=== PATIENT | female | born 1955 | race Caucasian/White ===

== ENCOUNTER 2019-10-06 08:57 | Outpatient (CLI) | payer OTHER, MEDICARE, SELFPAY ==
--- NOTE | 2019-10-06 09:04 | USCV_ITS ---
Alyssa Torre Age: 64 Gender: F : 1955 Exam Date: 10/06/2019 09:17 Ordering Phys: Mark Munoz MD ([email or web address]) Technologist: Tania Houston Exam Location: [facility] Indication: BILATERAL CAROTID ARTERY STENOSIS Risk Factors: Previous Vascular Surgery: L CEA Right Brachial BP: / Left Brachial BP: / Right Left Velocity (cm/s) Spectral Plaque Velocity (cm/s) Spectral Plaque Syst/Diast Broadening Syst/Diast Broadening 122.60/12.90 Prox CCA 111.90/ 17.10 49.70/ 17.10 Mid CCA 70.90 / 19.70 37.30/ 14.80 Distal CCA 62.40 / 23.90 97.55/ 32.85 Prox ICA 80.20 / 25.00 92.90/ 31.90 Mid ICA 98.60 / 30.20 60.10/ 20.50 Distal ICA 77.60 / 34.20 54.80 ECA 131.50 2.02 ICA/CCA 1.39 Antegrade Vertebral Antegrade 40.10/ 17.70 cm/s 94.70/ 26.30 cm/s Tri Subclavian Tri 83.90 106.5 0 FINDINGS Comparison:. 09/02/18. Prior left CEA. Moderate plaque near the right bifurcation. Mild elevation of velocity and turbulence. No significant stenosis. Minimal atherosclerosis on the left. Bilateral antegrade vertebral arteries. CONCLUSIONS Bilateral ICA stenosis less than 50%. Moderate plaque at right bifurcation with only mild elevation of velocity. Dr. Randi Cooper DO (Electronically Signed) Final Date: 06 October 2019 09:44 S
== END 2019-10-06 08:58 | disposition home or self-care (01) ==
LOC: RAD 08:58
PROVIDERS: Family Provider Nurse Practitioner; PCP Nurse Practitioner; Visit Provider Internal Medicine Cardiovascular Disease
DX: I65.23 Occlusion and stenosis of bilateral carotid arteries (principal)
CPT/HCPCS: 93880

== ENCOUNTER → 2019-10-12 09:41 | Outpatient (BNVA) | payer OTHER, MEDICARE, SELFPAY | PROVIDERS: Family Provider Nurse Practitioner; PCP Nurse Practitioner; Referring Provider Nurse Practitioner; Visit Provider Internal Medicine Rheumatology | DX: M06.00 Rheumatoid arthritis without rheumatoid factor, unspecified site (principal); Z79.899 Other long term (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 therapy; M15.0 Primary generalized (osteo)arthritis; Z79.52 Long term (current) use of systemic steroids | CPT/HCPCS: 36415; 80076; 82565; 85651; 86140; 99214 ==

== ENCOUNTER → 2019-10-12 11:27 | Outpatient (BNVA) | payer OTHER, MEDICARE, SELFPAY | PROVIDERS: Family Provider Nurse Practitioner; PCP Nurse Practitioner; Referring Provider Nurse Practitioner; Visit Provider Internal Medicine Rheumatology | DX: M06.00 Rheumatoid arthritis without rheumatoid factor, unspecified site (principal); Z79.899 Other long term (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 therapy; M15.0 Primary generalized (osteo)arthritis | CPT/HCPCS: 85025 ==

== ENCOUNTER → 2019-11-03 11:18 | Outpatient (BNVA) | payer OTHER, MEDICARE, SELFPAY | PROVIDERS: Family Provider Nurse Practitioner; PCP Nurse Practitioner; Visit Provider Nurse Practitioner | DX: E13.9 Other specified diabetes mellitus without complications (principal); I10 Essential (primary) hypertension; G62.9 Polyneuropathy, unspecified; J30.2 Other seasonal allergic rhinitis; J44.9 Chronic obstructive pulmonary disease, unspecified; E78.1 Pure hyperglyceridemia; Z79.899 Other long term (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 therapy | CPT/HCPCS: 81003 ==

== ENCOUNTER → 2019-11-04 08:09 | Outpatient (BNVA) | payer OTHER, MEDICARE, SELFPAY | PROVIDERS: Family Provider Nurse Practitioner; PCP Nurse Practitioner; Visit Provider Nurse Practitioner | DX: E78.1 Pure hyperglyceridemia (principal); E13.9 Other specified diabetes mellitus without complications; I10 Essential (primary) hypertension; J44.9 Chronic obstructive pulmonary disease, unspecified; Z79.899 Other long term (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 therapy | CPT/HCPCS: 80053; 80061; 83036; 84443 ==

== ENCOUNTER → 2020-01-19 10:02 | Outpatient (BNVA) | payer OTHER, MEDICARE, SELFPAY | PROVIDERS: Family Provider Nurse Practitioner; PCP Nurse Practitioner; Referring Provider Anesthesiology Pain Medicine; Visit Provider Orthopaedic Surgery | DX: M25.552 Pain in left hip (principal); M12.551 Traumatic arthropathy, right hip; M48.00 Spinal stenosis, site unspecified; M70.61 Trochanteric bursitis, right hip; M70.62 Trochanteric bursitis, left hip; M16.0 Bilateral primary osteoarthritis of hip | CPT/HCPCS: 73522; 73523 ==

== ENCOUNTER → 2020-02-02 10:10 | Outpatient (BNVA) | payer OTHER, MEDICARE, SELFPAY | PROVIDERS: Family Provider Nurse Practitioner; PCP Nurse Practitioner; Referring Provider Orthopaedic Surgery; Visit Provider Anesthesiology Pain Medicine | DX: M48.061 Spinal stenosis, lumbar region without neurogenic claudication (principal); M54.9 Dorsalgia, unspecified; R10.9 Unspecified abdominal pain; Z79.891 Long term (current) use of opiate analgesic | CPT/HCPCS: 99203; 99204 ==

== ENCOUNTER 2020-02-07 07:53 | Outpatient (CLI) | payer OTHER, MEDICARE, SELFPAY ==
--- NOTE | 2020-02-07 08:00 | CT_ITS ---
WS: [id number] CT LUMBAR SPINE TECHNIQUE: Noncontrast CT of the lumbar spine with coronal and sagittal reformatted images. CLINICAL INFORMATION: pain COMPARISON: MRI January 05, 2018 DLP: 1063.[address] scans at [facility] use at least one of these dose optimization techniques: automat ed exposure control; mA and/or kV adjustment per patient size (includes targeted exams where dose is matched to clinical indication); or iterative reconstruction. FINDINGS: Mild lumbar curve convex left. Vacuum disc phenomenon L3-4. No acute compression fractures. No high-g rade central canal stenosis. L1-L2: Normal. L2-L3: Mild annular bulging with slight effacement of ventral thecal sac. Moderate facet arthropathy. Spinal canal is patent. L3-L4: Mild disc bulging with vacuum disc phenomenon. Mild central canal stenosis. Moderate facet art hropathy ligament flavum hypertrophy. Mild to moderate right and no significant left foraminal narrow ing. L4-L5: Central disc protrusion in combination with facet arthropathy ligament flavum hypertrophy resu lts in moderate to severe central canal stenosis. Impingement on the subarticular recess bilaterally. Mild to moderate right greater than left foraminal narrowing. L5-S1: Mild disc bulging with osteophytic ridging. Mild right and no significant left foraminal narro wing. Spinal canal is patent. Advanced facet arthropathy. Visualized pelvic bony structures: Normal. Paravertebral soft tissues: Normal. Partially visualized left adrenal adenoma measuring 3.[address]/CT lumbar spine wo con* [id number] IMPRESSION: 1. Mild lumbar curve. No acute compression. 2. Moderate to severe central canal stenosis L4-5 with a small central protrus ion in combination with facet arthropathy and Ligamentum flavum hypertrophy. Th is appears similar to the MRI in 2018. 3. Mild central canal stenosis L3-4 due to disc bulging with facet arthropathy and ligamentum flavum hypertrophy. 4. Moderate to advanced facet arthropathy L4-L5 and L5-S1. 5. Mild to moderate foraminal narrowing worse at right L3-4 and right L4-5.
== END 2020-02-07 07:54 | disposition home or self-care (01) ==
LOC: RADWPI 07:57
PROVIDERS: Family Provider Nurse Practitioner; PCP Nurse Practitioner; Visit Provider Orthopaedic Surgery
DX: M54.5 Low back pain (principal); M48.061 Spinal stenosis, lumbar region without neurogenic claudication; M47.816 Spondylosis without myelopathy or radiculopathy, lumbar region
CPT/HCPCS: 72131

== ENCOUNTER → 2020-02-10 09:37 | Outpatient (BNVA) | payer OTHER, MEDICARE, SELFPAY | PROVIDERS: Family Provider Nurse Practitioner; PCP Nurse Practitioner; Visit Provider Nurse Practitioner | DX: E11.65 Type 2 diabetes mellitus with hyperglycemia (principal); I10 Essential (primary) hypertension; E78.1 Pure hyperglyceridemia; J30.2 Other seasonal allergic rhinitis; G62.9 Polyneuropathy, unspecified | CPT/HCPCS: 80053; 80061; 81000; 82044; 83036; 83721 ==

== ENCOUNTER → 2020-02-16 14:02 | Outpatient (BNVA) | payer OTHER, MEDICARE, SELFPAY | PROVIDERS: Family Provider Nurse Practitioner; PCP Nurse Practitioner; Visit Provider Anesthesiology Pain Medicine | DX: M48.061 Spinal stenosis, lumbar region without neurogenic claudication (principal); M54.9 Dorsalgia, unspecified; Z79.891 Long term (current) use of opiate analgesic | CPT/HCPCS: 64483; 64484; J1040; J2001; J3490 ==

== ENCOUNTER → 2020-02-23 13:07 | Outpatient (BNVA) | payer OTHER, MEDICARE, SELFPAY | PROVIDERS: Family Provider Nurse Practitioner; PCP Nurse Practitioner; Visit Provider Anesthesiology Pain Medicine | DX: M48.061 Spinal stenosis, lumbar region without neurogenic claudication (principal); M54.9 Dorsalgia, unspecified; Z79.891 Long term (current) use of opiate analgesic | CPT/HCPCS: 64483; 64484; J1040; J2001; J3490 ==

== ENCOUNTER → 2020-05-26 08:39 | Outpatient (BNVA) | payer MEDICARE, SELFPAY | PROVIDERS: Family Provider Nurse Practitioner; PCP Nurse Practitioner; Visit Provider Nurse Practitioner | DX: E11.65 Type 2 diabetes mellitus with hyperglycemia (principal); I10 Essential (primary) hypertension; M15.9 Polyosteoarthritis, unspecified | CPT/HCPCS: 80053; 80061; 81000; 83036; 84443 ==

== ENCOUNTER → 2020-08-15 11:38 | Outpatient (BNVA) | payer MEDICARE, SELFPAY | PROVIDERS: Family Provider Nurse Practitioner; PCP Nurse Practitioner; Visit Provider Nurse Practitioner | DX: Z12.72 Encounter for screening for malignant neoplasm of vagina (principal); Z00.00 Encounter for general adult medical examination without abnormal findings; Z12.39 Encounter for other screening for malignant neoplasm of breast | CPT/HCPCS: 88175 ==

== ENCOUNTER → 2020-08-23 09:09 | Outpatient (BNVA) | payer MEDICARE, SELFPAY | PROVIDERS: Family Provider Nurse Practitioner; PCP Nurse Practitioner; Visit Provider Nurse Practitioner | DX: M16.0 Bilateral primary osteoarthritis of hip (principal); E11.65 Type 2 diabetes mellitus with hyperglycemia; E55.9 Vitamin D deficiency, unspecified; I10 Essential (primary) hypertension; M25.551 Pain in right hip; Z79.899 Other long term (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 therapy; M25.552 Pain in left hip | CPT/HCPCS: 73522; 80053; 80061; 82043; 82306; 83036; 84443; 85025 ==

== ENCOUNTER → 2020-11-24 08:22 | Outpatient (BNVA) | payer MEDICARE, SELFPAY | PROVIDERS: PCP Nurse Practitioner; Visit Provider Nurse Practitioner | DX: E55.9 Vitamin D deficiency, unspecified (principal); E11.65 Type 2 diabetes mellitus with hyperglycemia; I10 Essential (primary) hypertension; J43.8 Other emphysema | CPT/HCPCS: 80053; 80061; 82306; 83036; 84443 ==

== ENCOUNTER 2021-01-12 09:14 | Emergency (ER) | payer MEDICARE, SELFPAY ==
[2021-01-12 09:20] VITALS: BP 165/88; PULSE 92; RESP 18; TEMP 36.3; O2SAT 97; BMI 43.9
--- NOTE | 2021-01-12 09:34 | USR_ITS ---
PROCEDURE INFORMATION: Exam: US Duplex Right Lower Extremity Arteries Or Arterial Bypass Grafts Exam date and time: 01/12/2021 9:43 AM Age: 65 years old Clinical indication: Pain; Leg, lower; Right; Additional info: Discoloration RT 1st and 5th toe, h/o pad TECHNIQUE: Imaging protocol: Right Real-time duplex scan of the arteries or arterial bypass grafts of the right lower extremity with 2-D camacho scale, color Doppler flow and spectral waveform analysis. Images documented and saved. COMPARISON: No relevant prior studies available. FINDINGS: Right common femoral artery: There is monophasic waveform in the right common femoral artery. Velocities are within normal limits and do not suggest significant inflow disease. Right superficial femoral artery: There is monophasic waveform throughout the right superficial femoral artery. Velocities are normal. No significant stenosis is seen. A stent in the superficial femoral artery appears patent. Right popliteal artery: Monophasic waveform. Velocities are normal. No evidence of significant stenosis. Right calf/foot arteries: There is monophasic waveform in the posterior tibial artery and dorsalis pedis artery. Velocities are normal. Soft tissues: No hematoma or collection. Other findings: The ankle brachial index equals 0.54 which is in claudication zone.. US/[place] [address] IMPRESSION: 1. There is monophasic waveform throughout the right lower extremity but velocities are within normal limits and no significant stenosis is identified on real-time images. 2. The ankle brachial index is 0.54 which is in the claudication zone.
--- NOTE | 2021-01-12 09:34 | XR_ITS ---
WS: [id number] Right great toe, 3 views, 01/12/2021 Clinical Data: discoloration rt great toe Comparison: Right foot, 07/07/2019. Findings: There are no fractures or dislocations. The joint spaces are unremarkable. The soft tissues are waldo l. XR/XR toe RT min 2V 21340 Impression: Negative right great toe.
--- NOTE | 2021-01-12 09:47 | W.ED.EXTPRO ---
HPI - Extremity Problem General: Chief complaint: Extremity Problem,Nontraumatic Stated complaint: RIGHT BIG TOE BLACK Time Seen by Provider: 01/12/21 09:27 Source: patient Mode of arrival: ambulatory Limitations: no limitations History of Present Illness: HPI Narrative: 65-year-old female patient presents to the emergency department with several week/month history of right great toe and right little toe discoloration. She reports history of peripheral arterial disease, femoral blockage with stents placed by Dr. Meredith. She states has followed up with her primary care provider for discoloration, no new prescriptions or further evaluation as toe would wax and wane with improvement. She reports pain to the toe that has worsened this morning. Her states she may have an ingrown toenail. She has clipped her own nails and states there is a small sore at the tip of the toe. She reports that occurred several weeks ago. She denies right leg swelling pain or discoloration. Pain is localized to the toes only. She denies injury or trauma. MD Complaint: extremity pain Pain Consistency: constant Location: right, lower extremity and toe Quality: aching Relieving factors: immobilization and rest Exacerbating factors: range of motion, weight bearing, walking and other (Touching) Associated symptoms: Reports no associated symptoms; Deny chest pain, fever(s) or rash Review of Systems General: Reports: 10 or more systems reviewed and unremarkable except in HPI and below Const: Denies: fever(s), chills or diaphoresis Eyes: Denies: blurry vision or eye redness ENMT: Denies: throat pain, dental pain or disequilibrium Card: Denies: chest pain, palpitations or irregular heart rhythm Resp: Denies: dyspnea, productive cough, non-productive cough or wheezing GI: Denies: abdominal pain, nausea or vomiting : Denies: difficulty voiding or dysuria Musc: Reports: joint pain; Denies: neck pain or back pain Skin/Breast: Reports: skin tenderness and changes in skin color; Denies: rash or pruritus Neuro: Denies: headache(s), weakness in extremities or behavioral changes Psych: Denies: anxiety, depression, sleeping more or change in appetite Oleg/Lymph: Denies: easy bruising PFS ED PFSH: Medical History Allergic rhinoconjunctivitis, seasonal and perennial ASHD (arteriosclerotic heart disease) Chronic pain Chronic polyneuropathy Controlled diabetes mellitus with hyperglycemia, without long-term current use of insulin COPD (chronic obstructive pulmonary disease) Essential hypertension Generalized osteoarthritis GERD (gastroesophageal reflux disease) High risk medication use History of carotid artery stenosis HNP (herniated nucleus pulposus), lumbar Hypertriglyceridemia Lumbar spinal stenosis Osteoarthritis PAD (peripheral artery disease) Polyneuropathy Primary generalized (osteo)arthritis Rheumatoid arthritis with negative rheumatoid factor Vitamin D deficiency Surgical History S/P angioplasty with stent 2019 right leg 2018 heart S/P carotid endarterectomy Left 2019 S/P cervical spinal fusion 2005 S/P hysterectomy S/P knee replacement Bilateral 2006 Family History Other CAD (coronary artery disease) Diabetes Social History Smoking and tobacco status: former smoker Second hand smoke exposure: No Smoking risk assessment/counseling performed?: No Alcohol intake: never Desire information about alcohol rehabilitation?: No Counseling given: No Desire information about substance/drug rehabilitation?: No Counseling given: No Caregiver/support person: No Lives independently: Yes Household members: spouse Marital status: Number of children: 3 Highest education level completed: 10th Grade service: No Current occupational status: disabled Pets and animals: Yes History of recent travel: No Current gender identity: Female Physical Exam Const: COMMON NORMALS: no acute distress, patient oriented x3, healthy appearing and alert GENERAL APPEARANCE: cooperative, comfortable and well hydrated HENMT: COMMON NORMALS: normocephalic, Normal external nose present and moist oral mucous membranes HEAD & SCALP: normocephalic NOSE: Normal external nose present Eye: COMMON NORMALS: Equal, round and reactive pupils present and EOMs intact bilaterally GENERAL EYE: appearance normal, both eyes and all related structures PUPIL: Yes Equal, round and reactive pupils present Neck/C-Spine: COMMON NORMALS: full ROM and no lymphadenopathy GENERAL: Yes normal visual inspection and Yes trachea midline CERVICAL SPINE: Yes cervical ROM normal Lymph: LYMPHATIC: no lymphadenopathy noted Chest: COMMONS NORMALS: normal inspection of the chest Resp: COMMON NORMALS: normal respiratory effort, No retractions, No use of accessory muscles and clear to auscultation bilaterally EFFORT & INSPECTION: Yes able to speak in complete sentences AUSCULTATION: clear to auscultation bilaterally Cardio: COMMON NORMALS: regular rhythm, S1 normal heart sound present and S2 normal heart sound present RHYTHM: regular rhythm HEART SOUNDS: S1 normal heart sound present and S2 normal heart sound present PERIPHERAL PULSES: dorsalis pedis present positive right 1+ and diminished and positive left 1+ and diminished GI: COMMON NORMALS: Soft to palpation and non-tender INSPECTION: Yes normal to inspection PALPATION: Yes Soft to palpation : COMMON NORMALS: Yes no CVA tenderness BLADDER/KIDNEY EXAM: Yes no CVA tenderness Back/Pelvis: COMMON NORMALS: no CVA tenderness and thoracic and lumbar spine normal to inspection Extremity: COMMON NORMALS: normal to inspection, full ROM, capillary refill normal, no calf tenderness and no pedal edema GENERAL: Yes normal exam except as noted Neuro: COMMON NORMALS: patient oriented x3 and no focal motor deficits SENSORIUM/ORIENTATION: Yes alert Psych: COMMON NORMALS: mental status grossly normal, Normal thought process present and cooperative ACTIVITY/MOTOR BEHAVIOR: Yes appropriate eye contact THOUGHT PROCESS: Normal thought process present Skin: COMMON NORMALS: no rashes or lesions noted, turgor normal, no petechiae and no mottling GENERAL SKIN EXAM: no rashes or lesions noted, elasticity normal and turgor normal OTHER: Purple discoloration to the right great toe and fifth toe, full dorsi flexion extension noted, capillary refill at 3 seconds, small 5 mm wound with scabbing to the distal tip, nail to the great toe with ingrown appearance, tender to the touch no drainage. Course ED course: 65-year-old female patient presents to the emergency department with discoloration of the right great toe and right fifth toe, discoloration has been present for months, discoloration has waxed and waned. She has experienced increased pain today. Arterial ultrasound completed secondary to concern of thrombus, no acute thrombus visualized, she remains on aspirin therapy. X-ray revealed negative right great toe. She was referred to podiatry for ingrown toenail, she was also referred to cardiovascular services it has been sometime since she has had a checkup. She will need reevaluation by cardiology to ensure no further need for intervention/medication addition due to findings of arterial ultrasound. She has hydrocodone at home, placed on Keflex due to diabetic status and ingrown nail. Vital Signs: Vital signs: Vital Signs Temperature 97.3 F L 01/12/21 09:20 Pulse Rate 71 01/12/21 14:14 Respiratory Rate 18 01/12/21 14:14 Blood Pressure 115/73 01/12/21 14:14 Pulse Oximetry 98 01/12/21 14:14 MDM - Extremity (Nontraumatic) Imaging Data^: Xray Ortho: Radiologist's impression: [employer] [address] [place] [address]. [place] [address] XRay Report Signed Patient: Alyssa Torre #: [id number] : 1955cct#:[id number] Age/Sex: 65 / FADM Date: 01/12/21 Loc: ERRoom/Bed: Attending Dr: Ordering Provider/Ordering MD: Nessa Mott Date of Service: 01/12/21 Procedure(s): XR toe RT min 2V 33709 Accession Number(s): [id number] Report Number: [id number] WS: [id number] Right great toe, 3 views, 01/12/2021 Clinical Data: discoloration rt great toe Comparison: Right foot, 07/07/2019. Findings: There are no fractures or dislocations. The joint spaces are unremarkable. The soft tissues are normal. XR/XR toe RT min 2V 40991 Impression: Negative right great toe. Dictated By:Michelle Cardoza MD Signed By:Michelle Cardoza MDSigned Date/Time:01/12/21 1055 DD/ 1053 Other Imaging: Radiologist's impression: [employer] [address] [place] [address]. [place] [address] Ultrasound Report Signed Patient: Alyssa oTrre #: [id number] : 7Acct#:[id number] Age/Sex: 65 / FADM Date: 01/12/21 Loc: ERRoom/Bed: Attending Dr: Ordering Provider/Ordering MD: Nessa Mott Date of Service: 01/12/21 Procedure(s): [place] [address] Accession Number(s): [id number] Report Number: [id number] PROCEDURE INFORMATION: Exam: US Duplex Right Lower Extremity Arteries Or Arterial Bypass Grafts Exam date and time: 01/12/2021 9:43 AM Age: 65 years old Clinical indication: Pain; Leg, lower; Right; Additional info: Discoloration RT 1st and 5th toe, h/o pad TECHNIQUE: Imaging protocol: Right Real-time duplex scan of the arteries or arterial bypass grafts of the right lower extremity with 2-D camacho scale, color Doppler flow and spectral waveform analysis. Images documented and saved. COMPARISON: No relevant prior studies available. FINDINGS: Right common femoral artery: There is monophasic waveform in the right common femoral artery. Velocities are within normal limits and do not suggest significant inflow disease. Right superficial femoral artery: There is monophasic waveform throughout the right superficial femoral artery. Velocities are normal. No significant stenosis is seen. A stent in the superficial femoral artery appears patent. Right popliteal artery: Monophasic waveform. Velocities are normal. No evidence of significant stenosis. Right calf/foot arteries: There is monophasic waveform in the posterior tibial artery and dorsalis pedis artery. Velocities are normal. Soft tissues: No hematoma or collection. Other findings: The ankle brachial index equals 0.54 which is in claudication zone.. US/[place] [address] IMPRESSION: 1. There is monophasic waveform throughout the right lower extremity but velocities are within normal limits and no significant stenosis is identified on real-time images. 2. The ankle brachial index is 0.54 which is in the claudication zone. Dictated By:Kam Vick Signed By:Malissa Vick Date/Time:01/12/21 1401 DD/ 1400 Discharge Plan Discharge Patient Disposition: Home Clinical Impression: Ingrown nail, PAD (peripheral artery disease) Condition: Stable Prescriptions: New cephalexin 500 mg capsule 500 mg PO Q6H 7 Days Qty: 28 RF: 0 No Action mupirocin 2 % ointment 1 applic TOPICAL BID Qty: 22 RF: 0 aspirin [Adult Low Dose Aspirin] 81 mg tablet,delayed release (DR/EC) 81 mg PO DAILY RF: 0 docusate sodium [Colace] 100 mg capsule 100 mg PO BID RF: 0 omega-3 fatty acids [Fish Oil Concentrate] 1,000 mg capsule 1,000 mg PO DAILY RF: 0 hydrocodone-acetaminophen 10-325 mg tablet 1 tab PO Q6H PRNRF: 0 Complete Multivitamin Tablet 1 tab PO QAM RF: 0 albuterol sulfate [ProAir HFA] 90 mcg/actuation HFA aerosol inhaler 2 puff INHALATION Q6H PRNRF: 0 vitamin B complex [B Complex-Vitamin B12] Tablet 1 tab PO QAM RF: 0 ascorbic acid (vitamin C) 500 mg capsule PO DAILY RF: 0 diphenoxylate-atropine [Lomotil] 2.5-0.025 mg tablet 1 tab PO TID Qty: 9 RF: 0 atorvastatin 40 mg tablet 40 mg PO .HS Qty: 30 RF: 2 cholecalciferol (vitamin D3) 1,250 mcg (50,000 unit) capsule 50,000 unit PO .COMPLEX Qty: 2 RF: 2 diltiazem HCl [Tiazac] 360 mg capsule,extended release 24 hr 360 mg PO QAM Qty: 30 RF: 2 duloxetine 60 mg capsule,delayed release(DR/EC) 60 mg PO BID Qty: 60 RF: 2 Jardiance 25 mg tablet 25 mg PO QAM Qty: 30 RF: 2 estradiol [Estrace] 0.01 % (0.1 mg/gram) cream 1 g vaginal .2 times week Qty: 42.5 RF: 2 famotidine [Pepcid] 20 mg tablet 20 mg PO BID Qty: 60 RF: 2 fluticasone propionate 50 mcg/actuation spray,suspension 2 spray INTRANASAL DAILY Qty: 47.4 RF: 2 Victoza 2-Ravin 0.6 mg/0.1 mL (18 mg/3 mL) pen injector 1.8 mg SUBCUT DAILY Qty: 6 RF: 2 lisinopril 40 mg tablet 40 mg PO DAILY Qty: 30 RF: 2 metformin 500 mg tablet extended release 24 hr 500 mg PO BID Qty: 60 RF: 2 diclofenac sodium 1 % gel 2 g TOPICAL QID PRN (Reason: foot pain) Qty: 100 RF: 2 Discharge Orders: Discharge ED (Routine); Ordered 01/12/21 Ordered By: Nessa Mott Referrals: Amy Morris, [employer] [Primary Care Provider] - Discharge Diet: Cardiac Discharge Activity: Limit activity as instructed Patient Instructions: Ingrown Nail (ED), Peripheral Artery Disease (ED), Opioid Safety Activity Restrictions/Additional Instructions: Continue aspirin daily Continue hydrocodone as needed for pain Warm soaks of the right foot several times daily to help with softening of the nail director of cardiopulmonary services will contact you with an appointment with Dr. 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
--- NOTE | 2021-01-12 09:55 | PC.NURSE ---
portable ultrasound at bedside
[2021-01-12] MEDS: HYDROcodone-acetaminophen 7.5-325 mg Tablet 1 TAB PO (12:03)
[2021-01-12 12:05] VITALS: BP 115/73; PULSE 68; O2SAT 98
[2021-01-12 14:14] VITALS: BP 115/73; PULSE 71; RESP 18; O2SAT 98
--- NOTE | 2021-01-15 09:34 | DCPLANNER ---
fiscal services manager had message to schedule a follow up appointment for patient with ortho, Dr. Hilliard for ingrown toe nail. fiscal services manager called the ortho clinic, spoke with Christy, gave clinic patients information. fiscal services manager was told that patients information would be printed and reviewed. Clinic will call patient with appointment information.
--- NOTE | 2021-01-16 11:00 | DCPLANNER ---
Patient has a follow up appointment scheduled for December at 11:[address] at [facility]. Clinic will call patient with appointment information. sap project manager had message to schedule a follow up appointment for patient with heart care. sap project manager called heart care, spoke with Gay, gave clinic patients information. sap project manager was told that patient has a follow up appointment scheduled for Sunday, January 17, 2021 at 1:[address] C[place]ton. Patient is aware of appointment.
--- NOTE | 2021-03-28 08:00 | DCPLANNER ---
Patient had follow up appointments scheduled with [facility] and ortho - patient attended both of the appointments.
== END 2021-01-12 14:15 | disposition home or self-care (01) ==
PROVIDERS: Emergency Provider Nurse Practitioner Family; PCP Nurse Practitioner
DX: L60.0 Ingrowing nail (principal); I73.9 Peripheral vascular disease, unspecified; Z79.82 Long term (current) use of aspirin; Z79.84 Long term (current) use of oral hypoglycemic drugs; E11.42 Type 2 diabetes mellitus with diabetic polyneuropathy; J44.9 Chronic obstructive pulmonary disease, unspecified; I10 Essential (primary) hypertension; Z87.891 Personal history of nicotine dependence
CPT/HCPCS: 73660; 93926; 99283

== ENCOUNTER → 2021-02-05 08:32 | Outpatient (BNVA) | payer MEDICARE, SELFPAY | PROVIDERS: PCP Nurse Practitioner; Visit Provider Internal Medicine Cardiovascular Disease | DX: Z20.822 Contact with and (suspected) exposure to COVID-19 (principal); I25.10 Atherosclerotic heart disease of native coronary artery without angina pectoris; I73.9 Peripheral vascular disease, unspecified; I77.9 Disorder of arteries and arterioles, unspecified; I10 Essential (primary) hypertension | CPT/HCPCS: 80048; 85025; 85610; 87635 ==

== ENCOUNTER 2021-02-09 13:50 | Observation (INO) | payer MEDICARE, SELFPAY ==
[2021-02-09] VITALS (11 sets, daily range): BP systolic 145–176; BP diastolic 61–90; PULSE 66–81; RESP 15–19; TEMP 36.7–36.9; O2SAT 94–98; BMI 43.9
--- NOTE | 2021-02-09 11:00 | XACV_ITS ---
Ht: 160 cm Wt: 112 kg BSA: 2.30 m2 Any Known Allergies: Other Gender: Female : 1955 Exam Type: Invasive Peripheral Vascular Procedure(s): Procedure Description: Peripheral Cath Diagnostic Procedure Procedure Description: Abdominal aortic angiography Procedure Description: Lower extremities' angiography Exam Priority: Routine Conclusions For lifestyle limiting ischemia more on right than left and abnormal CTA patient underwent peripheral angiogram. Bilateral renal artery:NormalBilateral common iliac artery appeared to be calcified without significant stenosisRight internal iliac artery not well visualized. Left internal artery without significant stenosis. Right and left external iliac arteries had luminal irregularity. Right and left common femoral arteries luminal irregularity. Right and left profundofemoral artery has luminal irregularity. Left and right SFA has luminal irregularity with calcification no significant stenosis. Both popliteal arteries are without significant stenosis. Right tibioperoneal trunk has luminal irregularity. Left tibioperoneal trunk has luminal irregularity. Right anterior posterior and peroneal artery has luminal irregularities. Left anterior tibial peroneal has luminal irregularity without significant stenosis. Left posterior tibial artery possible occluded proximally however may cannot be visualized due to artifact. . Recommendations Continue current medical management and risk factor modification. Follow up with PCP as directed. a. Continue medical management and risk factor modification. Hemodynamic Data Phase:Rest AO : 153.0 / 50.0 ( 83.0 ) @ 12:15:00 PM Access Site Site: Right Femoral artery Sheath Size: 6 Fr Hemost... Method: Suture Hemost... Success: Successful Procedure Details Findings Procedure Consent Obtained. Pre-Procedure Time Out. Identified patient by full name and date of as verbalized by the patient/guarantor. Does the consent match the physician's order: Yes. Accurate & Complete Informed Consent: Yes. Inpatient/Outpatient History & Physical on Chart: Yes. If H&P is completed, is and addenduem needed: No; If yes, is the addendum complete: N/A. Visualize and Verify Site with Patient/Guarantor: N/A. Relevant Radiology Images available: N/A. Pre-op teaching completed and patient verbalized understanding. The risks, benefits, and alternatives of sedation and/or procedure were discussed by physician. The patient agrees to continue. Procedure started. Correct patient, site and procedure confirmed by cath team. Equipment: Peripheral. Cardiac Cath Pack. ACIST Manifold Kit Model BT 2000. Heparinized Saline (2 units/mL), 1000 mL bag. PERRLA. Strong, equal hand event executive bilaterally. Lungs clear x 5 lobes. IV Site on Arrival: 20 gauge in the left anticubital. Pre Procedural Pulses: right dorsalis pedis was Doppled. Pre Procedural Pulses: left dorsalis pedis was 1+. Pre Procedural Pulses: right posterior tibial was Doppled. Pre Procedural Pulses: left posterior tibial was 1+. Pre Procedural Pulses: bilateral radial was 3+. Oxygen started at 2liters/min via nasal canula. bilateral groins was prepped with chloroprep then draped in the usual sterile fashion. Physician arrived. Baseline sample Acquired. HR: 64 BPM. NIBP 158/76(126). Physician scrubbed in. Time out performed with cath team. Lidocaine 1% infiltrated to the left groin. Arterial access obtained with micropuncture set. Inventory is JJ 6F 11cm Soledad Plus Sheath. A CORDIS 5F UF catheter 65cm was advanced over the wire and used for Abdominal aortogram with runoff. Abdominal aortogram performed in AP @ 10 mL/sec for a total of 30 mL. Glidewire inserted. Glidewire out. UF seated into right common iliac. Right leg runoff 10 ml for total of 30 ml. Glidewire inserted. Glidewire seated in right SFA. Catheter removed over the glide wire. Short 6 fr sheath exchanged for long 45 cm 6 fr Flexor sheath. Inventory is CK 6 FR FLEXOR SHEATH 45CM. Right leg runoff 10 ml for total of 30 ml. Right leg runoff 10 ml for total of 30 ml. Long 45 cm 6 fr flexor sheath exchanged for short 6 fr sheath. Left leg runoff 10 ml for total of 30 ml. Physician scrubbed out. A Suture was successful obtaining hemostatsis at the Right Femoral artery insertion site. Sheath(s) sutured into position with 2-0 silk and sterile 4x4's and Op-site applied over the site. No oozing or signs and symptoms of hematoma noted. Arterial sheath flushed and connected to tranducer and pressure bag with heparinized saline. Post Procedure: Pulses reassessed and unchanged. PERRLA. Strong, equal hand event executive bilaterally. No VTE prophylaxis required. Medication's Wasted: Lidocaine 1% = 10 mL. Medication's Wasted: Heparin = 4000 units. Total IV fluids: 45.8 mL. Medication's Wasted: Other = versed 1 mg. Medication's Wasted: Other = fentanyl 50 mcg. Contrast type used: Visipaque 320 mgI/mL, 500 mL bottle. Complications: none. Estimated blood loss: 5mL-10mL. Post-op diagnosis: no significant PVD, renal art stenosis. Procedure completed. Patient transferred by bed to 1st floor. Vital chart was stopped. Procedure Medications Start: 12:50 PM Stop: 12:50 PM Medication: Versed Amount: 1 mg Route: I.V. Start: 12:50 PM Stop: 12:50 PM Medication: Fentanyl Amount: 50 mcg Route: I.V. Start: 1:06 PM Stop: 1:06 PM Medication: Versed Amount: 1 mg Route: I.V. Start: 1:06 PM Stop: 1:06 PM Medication: Fentanyl Amount: 50 mcg Route: I.V. Start: 1:17 PM Stop: 1:17 PM Medication: Versed Amount: 1 mg Route: I.V. Start: 1:17 PM Stop: 1:17 PM Medication: Fentanyl Amount: 50 mcg Route: I.V. I, the attending physician, have reviewed and verified all procedure medications. Yes, all medications given per verbal order History/Risk Factors Hypertension: Yes Dyslipidemia: Yes Peripheral Arterial Disease (PAD): Yes Obesity: Yes Renal Disease: No Tobacco Use: Former Prior Interventions PCI: Yes CABG: No Valve Surgery: No Report Signatures Finalized by Rekha Covington MD on 02/25/2021 08:17 AM
[2021-02-09] MEDS: diphenhydrAMINE 50 mg Capsule PO (11:22)
--- NOTE | 2021-02-09 12:06 | PC.CHAP ---
Pastoral Care Encounter/Spiritual Assessment Type of Contact [] Declined club former visit [] Patient/Family/Request visit [] Outpatient visit [] Follow-up visit [] Physician referral [] Code/Alert [xx] Routine visit [] Staff referral [] Actively dying [] Patient sleeping [] Family support [] [] Out of room [] Palliative care [] [] Receiving care in room [] Pre-surgical visit [] Trauma [] Long length of stay [] ICU visit [] Other: Relational/Emotional Strength [xx] Patient feels connected with others/family/visitors/staff [] Distress [] Loneliness/isolation [] Abandonment Spirituality of Patient [xx] Person of Shama [] Attends Congregational of their Shama [xx] Believes in Prayer [xx] Reads Bible or Alevism materials [] There are Spiritual issues to be addressed Director Software Development Interventions [xx] Prayer [xx] Active listening [xx] Non-anxious presence [] Spiritual/emotional support [] Crisis/trauma care [] Spiritual counseling [] Bereavement support [] Provided bereavement packet [] Provided Bible/devotional materials [] Provided toy/stuffed animal, coloring book to patient or family member [] Provided Communion [] Anointing/[place] [] Salvation [xx] Completed spiritual assessment [] Other: Impact on Illness or Injury [] Angry [] Fearful [] Anxious [] Often cries [] Exhaustion [] Unable to work [] Unable to attend restorationism [] Unable to walk/stand [] Unable to read [] Unable to drive [] Unable to eat/drink [] Unable to sleep [] Unable to be with family [] Patient intubated [] Other: Summary Spouse and daughter present. Patient feels better. Time spent with patient 5 minutes
--- NOTE | 2021-02-09 12:48 | W.PM.OPSUD ---
Surgery/Procedure H&P Update DATE OF PROCEDURE: February 09, 2021 DATE H&P PERFORMED: 01/31/21 H&P UPDATE INFORMATION: I have reviewed H&P completed within last 30 days, I have examined patient prior to procedure and No changes to prior documentation PREOP DIAGNOSIS: Critical limb ischemia of right leg and foot with nonhealing ulcer PLANNED PROCEDURE: Operation Date: 02/09/21 12:00 Proposed Procedures p Peripheral Diagnostic 38208 I73.9(Not Applicable) - Rekha Covington MD PATIENT REASSESSED PRIOR TO SEDATION, WITH NO CHANGE NOTED: Yes PHYSICAL EXAM: alert, oriented x 3 and clear to auscultation bilaterally AIRWAY EVAL/ANESTHESIA PLAN: ASA II, Risks, benefits & alternatives of sedation and/or procedure discussed and Patient agrees to continue as planned
[2021-02-09] MEDS: fentaNYL 50 mcg/mL INJ 2mL 25 MCG IVP (15:57)
[2021-02-09] MEDS: sodium chloride 0.9% 1,000 ML 100 ML IV (16:51)
[2021-02-09] MEDS: atorvastatin 40 mg Tablet PO (18:51)
[2021-02-09] MEDS: docusate sodium 100 mg Capsule PO (18:51)
[2021-02-09] MEDS: metformin XR 500 MG Tablet PO (18:51)
[2021-02-09] MEDS: mupirocin oint 22 gm 1 APPLIC TOPICAL (18:51)
[2021-02-09] MEDS: famotidine 20 mg Tablet PO (18:51)
[2021-02-09] MEDS: duloxetine 60 mg Capsule PO (18:51)
[2021-02-09] MEDS: diphenoxylate/atropine Tablet 1 TAB PO (18:51)
--- NOTE | 2021-02-09 19:45 | PC.NURSE ---
Received pt from laborer plumbing to room 106 at approximately 1350. Pt had cardiac sheath in left groin with pressure bag no hematoma or excess bleeding noted. Pt had no c/o pain or discomfort at the present time VS stable call light in reach will continue to monitor.
--- NOTE | 2021-02-09 19:59 | PC.NURSE ---
Sheath pulled at approximately 1620 pressure held for 20 minutes. No hematoma or excess bleeding noted. Pt had no c/o pain or discomfort. Drsg dry and intact. Call light in reach. Will continue to monitor.
[2021-02-09] MEDS: acetaminophen 325 mg Tablet 650 MG PO (21:22)
[2021-02-10] MEDS: sodium chloride 0.9% 1,000 ML 100 ML IV (00:42)
[2021-02-10 03:42] VITALS: BP 153/53; PULSE 69; RESP 18; TEMP 37.1; O2SAT 93
[2021-02-10 05:28] VITALS: PULSE 86
[2021-02-10] MEDS: dilTIAZem ER (24HR) 180 mg Capsule 360 MG PO (05:44)
[2021-02-10 07:19] VITALS: BP 132/64; PULSE 81; RESP 15; TEMP 36.6; O2SAT 97
[2021-02-10 07:27] VITALS: PULSE 82; RESP 18; O2SAT 97
--- NOTE | 2021-02-10 09:25 | P.SS_ITS ---
Short Stay Summary Providers Date of Admit/Discharge: 02/10/21 Attending Provider: Josias Gold MD Primary Care Provider: YOKASTA Steele Chief Complaint: periphereal diagnostic HPI History of Present Illness Alyssa Torre is a 65 year old female who was seen in office as she stated her toes have been turning purple and black. Patient was also complaining of resting pain in the right first and fifth toe. She has severe peripheral arterial disease history. right toe has bluish-purple and black eschar. She has severely depressed DELIA of 0.5. She also gave a history of claudications. Patient came for peripheral angiogram yesterday Review of Systems General: Reports: 10 or more systems reviewed and unremarkable except in HPI and below Const: Denies: fever(s) or chills Eyes: Denies: change in vision or eye redness Card: Reports: swelling of feet/ankles and leg pain with exertion; Denies: chest pain or palpitations Resp: Denies: dyspnea GI: Denies: nausea or vomiting : Denies: hematuria Musc: Reports: extremity pain and extremity swelling Skin/Breast: Reports: changes in skin color, dry skin, nail changes and change in hair Neuro: Reports: numbness in extremities, sensory changes and difficulty walking Psych: Denies: suicidal ideation Endo: Reports: cold intolerance Oleg/Lymph: Denies: easy bruising Home Meds/Allergies Home Medications and Allergies Home Medications Medication Instructions Recorded Confirmed Type albuterol sulfate 90 mcg/actuation 2 puff INHALATION Q6H PRN 10/05/19 02/23/21 History aerosol inhaler ascorbic acid (vitamin C) 500 mg 500 mg PO DAILY cap 10/05/19 02/23/21 History capsule aspirin 81 mg tablet,delayed 81 mg PO DAILY tab 10/05/19 02/23/21 History release docusate sodium 100 mg capsule 100 mg PO BID 10/05/19 02/23/21 History hydrocodone 10 mg-acetaminophen 1 tab PO Q6H PRN 10/05/19 02/23/21 History 325 mg tablet omega-3 fatty acids 1,000 mg 1,000 mg PO DAILY@0800 cap 10/05/19 02/23/21 History capsule vitamin B complex 1 tab PO DAILY@0800 10/05/19 02/23/21 History diphenoxylate-atropine 2.5 1 tab PO BID tab 01/31/21 02/23/21 History mg-0.025 mg tablet atorvastatin 40 mg PO BEDTIME@2200 02/10/21 02/23/21 History cholecalciferol (vitamin D3) 1,250 mcg PO Q14D 02/10/21 02/23/21 History diclofenac sodium See Rx Instructions .ROUTE .COMPLEX 02/10/21 02/23/21 History diltiazem HCl 360 mg PO DAILY@0800 02/10/21 02/23/21 History diphenhydramine-acetaminophen 1 tab PO Q4H PRN 02/10/21 02/23/21 History [Tylenol PM Extra Strength] duloxetine 60 mg PO BID@0800,2200 02/10/21 02/23/21 History empagliflozin [Jardiance] 25 mg PO DAILY@0800 02/10/21 02/23/21 History estradiol See Rx Instructions .ROUTE .COMPLEX 02/10/21 02/23/21 History famotidine 20 mg PO BID@0800,2200 02/10/21 02/23/21 History fluticasone propionate 2 spray NOSTRIL-AL DAILY 02/10/21 02/23/21 History liraglutide [Victoza 2-Ravin] 1.8 mg SUBCUT DAILY 02/10/21 02/23/21 History lisinopril 40 mg PO DAILY@0800 02/10/21 02/23/21 History metformin 500 mg PO DAILY@2200 02/10/21 02/23/21 History multivitamin 1 tab PO DAILY@0800 02/10/21 02/23/21 History mupirocin See Rx Instructions .ROUTE .COMPLEX 02/10/21 02/23/21 History Allergies Allergy/AdvReac Type Severity Reaction Status Date / Time pregabalin [From Lyrica] Allergy Unknown increased Verified 02/23/21 15:29 muscle pain PFSH Acute PFSH: Medical History Allergic rhinoconjunctivitis, seasonal and perennial ASHD (arteriosclerotic heart disease) CAD (coronary artery disease) Carotid artery disease Chronic pain Chronic polyneuropathy Controlled diabetes mellitus with hyperglycemia, without long-term current use of insulin COPD (chronic obstructive pulmonary disease) Essential hypertension Generalized osteoarthritis GERD (gastroesophageal reflux disease) High risk medication use History of carotid artery stenosis HNP (herniated nucleus pulposus), lumbar Hypertriglyceridemia Lumbar spinal stenosis Osteoarthritis PAD (peripheral artery disease) Polyneuropathy Primary generalized (osteo)arthritis Rheumatoid arthritis with negative rheumatoid factor Vitamin D deficiency Surgical History S/P angioplasty with stent 2019 right leg 2018 heart S/P carotid endarterectomy Left 2019 S/P cervical spinal fusion 2005 S/P hysterectomy S/P knee replacement Bilateral 2006 Family History Other CAD (coronary artery disease) Diabetes Social History Smoking and tobacco status: former smoker Second hand smoke exposure: No Smoking risk assessment/counseling performed?: No Alcohol intake: never Desire information about alcohol rehabilitation?: No Counseling given: No Desire information about substance/drug rehabilitation?: No Counseling given: No Caregiver/support person: No Lives independently: Yes Household members: spouse Marital status: Number of children: 3 Highest education level completed: 10th Grade service: No Current occupational status: disabled Pets and animals: Yes History of recent travel: No Current gender identity: Female Vitals/I&O/Wt Last Vital Signs Temp 97.8 F 02/10/21 07:19 Pulse 82 02/10/21 07:27 Resp 18 02/10/21 07:27 BP 132/64 02/10/21 07:19 Pulse Ox 97 02/10/21 07:27 02/09/21 02/10/21 02/10/21 22:59 06:59 14:59 Intake Total 200 / 200 785 / 985 240 / 240 Output Total 1000 / 1000 Balance -800 / -800 785 / -15 240 / 240 Weight last 48 hrs Weight 248 lb Physical Exam Narrative: EXAM NARRATIVE: GENERAL: Patient is alert, awake and oriented x3. [] NECK: No jugular vein distension. [] HEENT: No cyanosis. No icterus. No pallor. [] HEART: Regular S1 and S2. No murmur, rub or gallop. [] LUNGS: Clear to auscultate bilaterally. [] ABDOMEN: Soft, nontender and nondistended. Positive bowel sounds. No guarding, rebound or tenderness. [] CENTRAL NERVOUS SYSTEM: Grossly nonfocal. [] EXTREMITIES: Lower extremities without edema bilaterally. Right foot big toe gangrenous ulcer Hospital Course Hospital Course Alyssa Torre is a 65 year old female who was seen in office as she stated her toes have been turning purple and black. Patient was also complaining of resting pain in the right first and fifth toe. She has severe peripheral arterial disease history. right toe has bluish-purple and black eschar. She has severely depressed DELIA of 0.5. She also gave a history of claudications. Patient underwent peripheral angiogram yesterday that did not reveal significant stenosis. Patient to be discharged with medical therapy SSS Data Data Completed and Pending: Pending at discharge Category Date Time Status HADOOP ADMIN request for service Routin e Exams 02/09/21 11:00 Taken Discharge Plan Discharge Patient Disposition: Home Condition: Stable Prescriptions: Continued aspirin [Adult Low Dose Aspirin] 81 mg tablet,delayed release (DR/EC) 81 mg PO DAILY RF: 0 docusate sodium [Colace] 100 mg capsule 100 mg PO BID RF: 0 omega-3 fatty acids [Fish Oil Concentrate] 1,000 mg capsule 1,000 mg PO DAILY@0800 RF: 0 hydrocodone-acetaminophen 10-325 mg tablet 1 tab PO Q6H PRN (Reason: Pain) RF: 0 albuterol sulfate [ProAir HFA] 90 mcg/actuation HFA aerosol inhaler 2 puff INHALATION Q6H PRN (Reason: Shortness Of Breath) RF: 0 vitamin B complex [B Complex-Vitamin B12] Tablet 1 tab PO DAILY@0800 RF: 0 ascorbic acid (vitamin C) 500 mg capsule 500 mg PO DAILY RF: 0 diphenoxylate-atropine [Lomotil] 2.5-0.025 mg tablet 1 tab PO BID RF: 0 No Action cephalexin 500 mg capsule 500 mg PO BID 7 Days Qty: 14 RF: 0 doxycycline hyclate 100 mg capsule 100 mg PO BID 7 Days Qty: 14 RF: 0 atorvastatin 40 mg tablet 40 mg PO BEDTIME@2200 RF: 0 diltiazem HCl 360 mg capsule,extended release 24 hr 360 mg PO DAILY@0800 RF: 0 famotidine 20 mg tablet 20 mg PO BID@0800,2200 RF: 0 mupirocin 2 % ointment See Rx Instructions .ROUTE .COMPLEX RF: 0 estradiol 0.01 % (0.1 mg/gram) cream See Rx Instructions .ROUTE .COMPLEX RF: 0 lisinopril 40 mg tablet 40 mg PO DAILY@0800 RF: 0 metformin 500 mg tablet extended release 24 hr 500 mg PO DAILY@2200 RF: 0 duloxetine 60 mg capsule,delayed release(DR/EC) 60 mg PO BID@0800,2200 RF: 0 cholecalciferol (vitamin D3) 1,250 mcg (50,000 unit) capsule 1,250 mcg PO Q14D RF: 0 diclofenac sodium 1 % gel See Rx Instructions .ROUTE .COMPLEX RF: 0 Victoza 2-Ravin 0.6 mg/0.1 mL (18 mg/3 mL) pen injector 1.8 mg SUBCUT DAILY RF: 0 Jardiance 25 mg tablet 25 mg PO DAILY@0800 RF: 0 fluticasone propionate 2 spray nostril-al DAILY RF: 0 multivitamin 1 tab PO DAILY@0800 RF: 0 Tylenol PM Extra Strength 25-500 mg Tablet 1 tab PO Q4H PRN (Reason: pain/sleep) RF: 0 Discharge Orders: Discharge Order (Routine); Ordered 02/10/21 Ordered By: Josias Gold Referrals: Rekha Covington MD [Physician] - 1 month ([facility] will be calling to schedule a cardiology followup with Dr. Covington to be seen in 1 month. If you do not hear from them by Friday afternoon, please give them a call. Thank you) Elizabet Roberts FNP [Nurse Practitioner] - 7-10 days ([facility] will be calling to schedule a post procedure followup with CHRISTOFER Lorenzana to be seen in 7 to 10 days. If you do not hear from them by Friday afternoon, please give them a call. Thank you) Discharge Diet: Diabetic Discharge Activity: Increase activity as tolerated Patient Instructions: Post Angiogram Home Care Instructions Activity Restrictions/Additional Instructions: Please do not lift more than 5 pounds of weight for the next 5 days Attestations Medical Necessity Statement*: Care not expected to cross 2 midnights. Time Spent in Patient Care*: less than 30 min Quality Metrics Clinical Quality Measures: During this hospital stay, did patient experience: None Coding Level of Care Code Acute Camouflage Assembler for Poonam Chance
[2021-02-10] MEDS: omega-3 fatty acids 1,000 mg Capsule 1000 MG PO (10:05)
[2021-02-10] MEDS: diphenoxylate/atropine Tablet 1 TAB PO (10:05)
[2021-02-10] MEDS: lisinopril 20 mg Tablet 40 MG PO (10:05)
[2021-02-10] MEDS: mupirocin oint 22 gm 1 APPLIC TOPICAL (10:06)
[2021-02-10] MEDS: docusate sodium 100 mg Capsule PO (10:06)
[2021-02-10] MEDS: aspirin 81 mg EC Tablet PO (10:06)
[2021-02-10] MEDS: duloxetine 60 mg Capsule PO (10:06)
[2021-02-10] MEDS: famotidine 20 mg Tablet PO (10:06)
[2021-02-10] MEDS: metformin XR 500 MG Tablet PO (10:06)
[2021-02-10] MEDS: fluticasone nasal spray 16gm Btl 2 SPRAY INTRANASAL (10:07)
[2021-02-10 10:44] VITALS: PULSE 82; RESP 18; O2SAT 97
--- NOTE | 2021-02-10 11:58 | PC.NURSE ---
Pt discharged home. Pts IV removed no redness or swelling noted. Pts discharge instructions given along with prescriptions and follow up appointments. Pt had no c/o pain or discomfort at the time of discharge.
--- NOTE | 2021-02-13 15:03 | PC.SOCIAL ---
Short stay, no needs at this time.
== END 2021-02-10 12:00 | disposition home or self-care (01) ==
LOC: CSU 02-10 09:30
PROVIDERS: Admitting Provider Internal Medicine Cardiovascular Disease; PCP Nurse Practitioner; Visit Provider Internal Medicine Cardiovascular Disease
DX: I70.223 Atherosclerosis of native arteries of extremities with rest pain, bilateral legs (principal); I12.9 Hypertensive chronic kidney disease with stage 1 through stage 4 chronic kidney disease, or unspecified chronic kidney disease; N18.9 Chronic kidney disease, unspecified; E78.5 Hyperlipidemia, unspecified; E66.01 Morbid (severe) obesity due to excess calories; Z68.41 Body mass index [BMI] 40.0-44.9, adult; Z87.891 Personal history of nicotine dependence; L97.819 Non-pressure chronic ulcer of other part of right lower leg with unspecified severity; I25.10 Atherosclerotic heart disease of native coronary artery without angina pectoris; Z95.5 Presence of coronary angioplasty implant and graft; J44.9 Chronic obstructive pulmonary disease, unspecified; G62.9 Polyneuropathy, unspecified; Z79.82 Long term (current) use of aspirin; M19.90 Unspecified osteoarthritis, unspecified site
CPT/HCPCS: 36415; 75625; 75716; 96372; C1769; C1887; C1894; G0378; J1644; J2250; J3010; J7030; Q0163; Q9967

== ENCOUNTER → 2021-02-20 14:17 | Outpatient (BNVA) | payer MEDICARE, SELFPAY | PROVIDERS: PCP Nurse Practitioner; Visit Provider Nurse Practitioner Family | DX: I73.9 Peripheral vascular disease, unspecified (principal) | CPT/HCPCS: 80048 ==

== ENCOUNTER 2021-03-12 08:09 | Outpatient (CLI) | payer MEDICARE, SELFPAY ==
--- NOTE | 2021-03-12 08:00 | CT_ITS ---
WS: [id number] CTA ABDOMINAL AORTA WITH RUNOFF TECHNIQUE: Contrast enhanced CTA of the abdominal aorta with bilateral lower extremity runoff. Multip lanar reformatted images were obtained. MIP reformats were also reviewed. CLINICAL INFORMATION: [place] COMPARISON: None. DLP: 1658.[address] scans at [facility] use at least one of these dose optimization techniques: automat ed exposure control; mA and/or kV adjustment per patient size (includes targeted exams where dose is matched to clinical indication); or iterative reconstruction. FINDINGS: Lung bases are well aerated. Slight bibasilar atelectasis. Cardiomegaly. Diffuse fatty infi ltration liver. Prior cholecystectomy. Small esophageal hiatal hernia. Normal portal vein and splenic vein. Left adrenal lesion most consistent with adenoma measuring 3.1 x 3.1 cm. This is relatively st able since 2010. Normal pancreatic parenchymal enhancement. Normal caliber abdominal aorta. Celiac is patent. Moderate stenosis of the SMA origin which remains patent. Moderate calcified stenosis of the renal ostia bila terally. Normal renal parenchymal enhancement. Right adrenal gland is normal. No abdominal aortic ane urysm. Densely calcified iliac arteries. Tiny fat-containing umbilical hernia. Sigmoid diverticulosis. No evidence of acute diverticulitis. RIGHT: Dense calcified right common iliac artery with moderate segmental stenosis. Heavily calcified internal iliac artery. External iliac artery is patent. Moderate segmental stenosis involving the com mon femoral artery which remains patent. Severe stenosis at the superficial femoral artery origin. De nsely calcified deep femoral artery. Moderate to severe segmental stenosis involving the superficial femoral artery which remains patent. Multifocal moderate to severe stenosis involving the popliteal a rtery with dense calcification. Popliteal artery not well evaluated in the popliteal fossa due to TKA . Distal popliteal artery is patent with densely calcified trifurcation. Densely calcified tibioperon eal trunk with three-vessel runoff to the ankle. Tiny peroneal artery. LEFT: Densely calcified left common iliac artery which remains patent. External iliac artery is paten t. Moderate to severe stenosis superficial femoral artery at the origin. Densely calcified deep femor al artery. Common femoral artery is patent. Superficial femoral artery is nearly occluded at the popl iteal junction. Multifocal moderate to severe stenosis involving the popliteal artery which remains p atent. Images degraded in the popliteal fossa due to TKA. Distal popliteal artery is patent to the tr ifurcation with small peroneal artery. Three-vessel runoff to the ankle. CT/CT angio abd aorta runof [id number] IMPRESSION: 1. Densely calcified distal abdominal aorta and common iliac arteries. No abdo chaim aortic aneurysm. 2. Celiac and SMA are patent. Moderate stenosis at the SMA origin which remain s patent. 3. Moderate to severe stenosis at the renal artery ostia left greater than rig ht. 4. Bilateral proximal calcified atheromatous disease involving the iliacs, sup erficial femoral arteries, popliteal arteries bilaterally. 5. Bilateral three-vessel runoff to the ankles with tiny peroneal arteries. 6. RIGHT superficial femoral artery with moderate to severe segmental stenosis 7. LEFT superficial femoral artery is nearly occluded at the SFA popliteal shannan ction. 8. BILATERAL moderate to severe segmental stenosis involving the popliteal art eries bilaterally. 9. Other nonvascular findings as described above.
[2021-03-12] MEDS: iohexol 350 mg/mL 100 mL Btl IV (08:47)
== END 2021-03-12 08:10 | disposition home or self-care (01) ==
PROVIDERS: PCP Nurse Practitioner; Visit Provider Podiatrist Foot & Ankle Surgery
DX: I96 Gangrene, not elsewhere classified (principal); I70.8 Atherosclerosis of other arteries; I70.1 Atherosclerosis of renal artery
CPT/HCPCS: 75635; Q9967

== ENCOUNTER → 2021-03-13 15:19 | Outpatient (BNVA) | payer MEDICARE, SELFPAY | PROVIDERS: PCP Nurse Practitioner; Visit Provider Podiatrist Foot & Ankle Surgery | DX: Z01.818 Encounter for other preprocedural examination (principal); Z20.822 Contact with and (suspected) exposure to COVID-19 | CPT/HCPCS: 87635 ==

== ENCOUNTER 2021-03-16 05:59 | Day surgery (SDC) | payer MEDICARE, SELFPAY ==
[2021-03-16] VITALS (8 sets, daily range): BP systolic 97–122; BP diastolic 54–89; PULSE 71–99; RESP 16–18; TEMP 36.4–37; O2SAT 92–98
[2021-03-16 06:20] LABS: Glucose Point of Care 172 mg/dL (70-110)
--- NOTE | 2021-03-16 06:50 | ANES.PREANE2 ---
Pre-Anesthetic Assessment Pre-Anesthetic Assessment: Height/Weight: Height 1.6 m Weight 110.677 kg Temp Pulse Resp BP Pulse Ox 97.6 F 89 16 114/89 96 03/16/21 06:25 03/16/21 06:25 03/16/21 06:25 03/16/21 06:25 03/16/21 06:25 Preop Diagnosis: Dry gangrene right great toe Proposed Procedure: Operation Date: 03/16/21 07:00 Proposed Procedures p 51749 Right great toe amputation I96(Right) - Del Hilliard DPM Familial anesthetic complications: > 8 hrs Was Beta [place]rar[place] taken within 24 hours: N/A Was Clonidine taken within 24 hours: N/A Last intake: Intake Last Liquid Date 09/21/87 Last Solid Date 03/15/21 Last Solid Time 20:00 Social: Social History: No alcohol and No tobacco Exam: Pre-Anes Outpt Exam: alert, oriented x 3, clear to auscultation bilaterally and regular rate & rhythm Airway: MP: 2 Dentition: False Pulmonary: Pulmonary: COPD CV/HEM: CV/HEM: CAD, HTN and PVD GI: GI: GERD Metabolic: Metabolic: DM and Hyperlipidemia Musc/skel: Musc/skel: RA Anesthetic Plan: ASA status: 3 Anesthesia: MAC Risk of > 500 ml blood loss (7ml/kg in children): No PFSH Anesthesia PFSH: Medical History Allergic rhinoconjunctivitis, seasonal and perennial ASHD (arteriosclerotic heart disease) CAD (coronary artery disease) Carotid artery disease Chronic pain Chronic polyneuropathy Controlled diabetes mellitus with hyperglycemia, without long-term current use of insulin COPD (chronic obstructive pulmonary disease) Essential hypertension Generalized osteoarthritis GERD (gastroesophageal reflux disease) High risk medication use History of carotid artery stenosis HNP (herniated nucleus pulposus), lumbar Hypertriglyceridemia Lumbar spinal stenosis Osteoarthritis PAD (peripheral artery disease) Polyneuropathy Primary generalized (osteo)arthritis Rheumatoid arthritis with negative rheumatoid factor Vitamin D deficiency Surgical History S/P angioplasty with stent 2018 right leg 2018 heart S/P carotid endarterectomy Left 2019 S/P cervical spinal fusion 2005 S/P hysterectomy S/P knee replacement Bilateral 2006 Family History Other CAD (coronary artery disease) Diabetes Social History Smoking and tobacco status: former smoker Second hand smoke exposure: No Smoking risk assessment/counseling performed?: No Alcohol intake: never Desire information about alcohol rehabilitation?: No Counseling given: No Desire information about substance/drug rehabilitation?: No Counseling given: No Caregiver/support person: No Lives independently: Yes Household members: spouse Marital status: Number of children: 3 Highest education level completed: 10th Grade service: No Current occupational status: disabled Pets and animals: Yes History of recent travel: No Current gender identity: Female Data Anesthesia Other Labs: Laboratory Results - last 48 hr 03/16/21 06:18 POC Glucose 172 H Cardiac Studies: No Data to Display
[2021-03-16] MEDS: sodium chloride 0.9% 1,000 ML 30 ML IV (07:00)
--- NOTE | 2021-03-16 07:10 | W.PM.OPSUD ---
Surgery/Procedure H&P Update DATE OF PROCEDURE: March 16, 2021 DATE H&P PERFORMED: 03/13/21 H&P UPDATE INFORMATION: I have reviewed H&P completed within last 30 days, I have examined patient prior to procedure, No changes to prior documentation and H&P is in [facility] EMR on date indicated PREOP DIAGNOSIS: Dry gangrene right great toe PLANNED PROCEDURE: Operation Date: 03/16/21 07:00 Proposed Procedures p 96558 Right great toe amputation I96(Right) - Del Hilliard DPM
--- NOTE | 2021-03-16 07:50 | P.OP_ITS ---
Operative Report Date of procedure: March 16, 2021 Pre-op Diagnosis: Dry gangrene right great toe Post-op diagnosis: same Post-op Findings: Dry gangrene right great toe. Procedure Done: Right great toe amputation CPT code 21682 Implants: 4-0 Vicryl, 4-0 nylon Pathology: Right great toe sent to pathology for permanent Surgeon: Del Hilliard D.P.M. Terrazzo Finisher Helper: Bryson Estimated blood loss: Less than 5 mL Tourniquet time: 17 minutes IV fluids: None Urine output: None Complications: None Findings: None Condition: stable Disposition: PACU Brief History: Dry gangrene right great toe patient requesting amputation no longer wishes to pursue conservative measures. Has had vascular work-up, angiogram, angiography, oral antibiotics, local wound care, has been on Trental. Continues to have pain and eschar with gangrenous distal right hallux. Patient requesting amputation would like to proceed. Risks include pain, bleeding, numbness, infection, failure to heal at the amputation site at the metatarsophalangeal joint need for higher levels of amputation. Procedure: Under mild sedation the patient was brought to the operating room and placed on the operating table in supine position. A timeout was performed. Anesthesia was then administered by the anesthesia service. Local anesthesia injected by myself consisting of one-to-one mixture 1% lidocaine 0.5% Marcaine plain and a right Navarro block fashion total of 30 cc. Well-padded pneumatic tourniquet applied to the right ankle. Right lower extremity was scrubbed, prepped and draped utilizing normal aseptic technique. Attention was directed to the right great toe where a tennis racquet incision was made full-thickness down to bone circumferentially around the right first metatarsophalangeal joint with a #15 blade. The right great toe was disarticulated sharply at the metatarsophalangeal joint and passed from the operative field this will be sent to pathology for permanent. Incision was flushed with copious amounts of sterile saline solution. Inspection of the first metatarsal head demonstrated viable firm density and appropriate color on the first metatarsal head, soft tissue was viable as well at this level. The deep structures were then reapproximated utilizing 4-0 Vicryl. Skin closed utilizing 4-0 nylon. Incision site was dressed with Adaptic, sterile 4 x 4, Kerlix and Leopoldo wrap as well as application of postop shoe. Leopoldo wrap was not applied under tension. Tourniquet was deflated and a prompt hyperemic response is noted to the distal digits of the right foot that remained 2 through 5 as well as at the amputation site. Patient tolerated procedure and anesthesia well and was transferred to the PACU with vital signs stable and vascular status intact. Following a period of post labral monitoring she will be discharged home with follow-up in clinic next week.
[2021-03-16] MEDS: lidocaine 1% INJ 20 mL INTRAVESIC (07:58)
--- NOTE | 2021-03-16 08:23 | P.PCN_ITS ---
PACU note PACU note: VSS, Good respiratory effort, report to MERCERIZING RANGE FEEDER Post-Anesthesia Exam: awake
--- NOTE | 2021-03-16 08:23 | PM.PACU ---
PACU note PACU note: VSS, Good respiratory effort, report to MEDICAL OFFICE SCHEDULER Post-Anesthesia Exam: awake
--- NOTE | 2021-03-16 16:24 | ANE.PACU2 ---
Inpatient post-anesthesia follow up: Airway intact: Yes Vital signs: Temperature 97.8 F Pulse Rate 77 Respiratory Rate 18 Blood Pressure 122/59 Pulse Oximetry 97 Oxygen Delivery Me thod Room Air Oxygen Flow Rate Fraction of Inspir ed Oxygen Hydration adequate: Yes Nausea and vomiting: No Pain level: 2 Mental status: Baseline
== END 2021-03-16 09:15 | disposition home or self-care (01) ==
PROVIDERS: PCP Nurse Practitioner; Visit Provider Podiatrist Foot & Ankle Surgery
PROC: (CPT 28820; principal; 2021-03-16 07:00)
DX: E11.52 Type 2 diabetes mellitus with diabetic peripheral angiopathy with gangrene (principal); I96 Gangrene, not elsewhere classified; J44.9 Chronic obstructive pulmonary disease, unspecified; I25.10 Atherosclerotic heart disease of native coronary artery without angina pectoris; I10 Essential (primary) hypertension; K21.9 Gastro-esophageal reflux disease without esophagitis; E78.5 Hyperlipidemia, unspecified; M06.9 Rheumatoid arthritis, unspecified; M19.90 Unspecified osteoarthritis, unspecified site; Z87.891 Personal history of nicotine dependence
CPT/HCPCS: 28820; 36416; 82962; 88305; 96365; J0690; J2250; J2704; J3010; J3490; J7030

== ENCOUNTER → 2021-04-24 08:09 | Outpatient (BNVA) | payer MEDICARE, SELFPAY | PROVIDERS: PCP Nurse Practitioner; Visit Provider Nurse Practitioner | DX: E11.65 Type 2 diabetes mellitus with hyperglycemia (principal); I10 Essential (primary) hypertension; E55.9 Vitamin D deficiency, unspecified; J43.8 Other emphysema; I25.10 Atherosclerotic heart disease of native coronary artery without angina pectoris | CPT/HCPCS: 80053; 80061; 82306; 83036; 84443; 85025 ==

== ENCOUNTER 2021-04-26 10:50 | Outpatient (CLI) | payer MEDICARE, SELFPAY ==
--- NOTE | 2021-04-26 11:00 | USCV_ITS ---
Alyssa Torre Age: 65 Gender: F : 1955 Exam Date: 04/26/2021 11:22 Ordering Phys: Rekha Covington MD ([email or web address]) Technologist: Exam [place] [facility] [place]ication: LT SIDE ENDART Risk Factors: Previous Vascular Surgery: Right Brachial BP: / Left Brachial BP: / Right Left Velocity (cm/s) Spectral Plaque Velocity (cm/s) Spectral Plaque Syst/Diast Broadening Syst/Diast Broadening 59.80/ 21.00 Prox CCA 66.30 / 13.70 45.30/ 18.60 Mid CCA 69.50 / 16.20 57.40/ 20.20 Hetro Distal CCA 72.80 / 17.80 92.20/ 30.70 Hetro Prox ICA 85.70 / 21.80 57.40/ 17.00 Hetro Mid ICA 76.00 / 20.20 76.00/ 25.10 Hetro Distal ICA 67.90 / 20.20 72.80 ECA 45.70 1.54 ICA/CCA 1.18 Antegrade Vertebral Antegrade 32.30/ 11.30 cm/s 69.50/ 21.00 cm/s Bi Subclavian Bi 84.10 103.5 0 FINDINGS Comparison:. 10/06/19. No significant elevation of systolic or diastolic velocities. Diffuse bilateral scattered calcified plaque and intimal thickening throughout the common carotid arteries and extending through the bifurcation. No significant stenosis. Antegrade vertebral arteries. CONCLUSIONS No interval change in stenosis since prior exam. Bilateral ICA stenosis less than 50%. Dr. Randi Cooper DO (Electronically Signed) Final Date: 26 April 2021 15:02 S
== END 2021-04-26 10:51 | disposition home or self-care (01) ==
LOC: RAD 10:53
PROVIDERS: PCP Nurse Practitioner; Visit Provider Internal Medicine Cardiovascular Disease
DX: I65.23 Occlusion and stenosis of bilateral carotid arteries (principal)
CPT/HCPCS: 93880

== ENCOUNTER → 2021-05-01 11:38 | Outpatient (BNVA) | payer MEDICARE, SELFPAY | PROVIDERS: PCP Nurse Practitioner; Visit Provider Nurse Practitioner | DX: E11.65 Type 2 diabetes mellitus with hyperglycemia (principal); I10 Essential (primary) hypertension; E55.9 Vitamin D deficiency, unspecified; G62.9 Polyneuropathy, unspecified; N76.0 Acute vaginitis; K21.9 Gastro-esophageal reflux disease without esophagitis | CPT/HCPCS: 81000 ==

== ENCOUNTER → 2021-05-09 08:16 | Outpatient (BNVA) | payer MEDICARE, SELFPAY | PROVIDERS: PCP Nurse Practitioner; Visit Provider Podiatrist Foot & Ankle Surgery | DX: M79.671 Pain in right foot (principal); Z89.411 Acquired absence of right great toe | CPT/HCPCS: 73630 ==

== ENCOUNTER 2021-06-14 16:36 | Emergency (ER) | payer MEDICARE, SELFPAY ==
[2021-06-14] VITALS (7 sets, daily range): BP systolic 114–140; BP diastolic 55–82; PULSE 69–81; RESP 14–28; TEMP 36.8; O2SAT 92–97; BMI 42.5
--- NOTE | 2021-06-14 16:42 | ECG_ITS ---
[facility] Test Date: 2021-06-14 Pat Name: Alyssa Torre Department: Room: Gender: Female Interface Control Officer: : 1955 Requested By: Reginaldo Pope Order Number: [id number] Abiel MD: Jeanine Maritnes M.D. Measurements Intervals [place] Rate: 69 P: -19 NC: 230 QRS: 97 QRSD: 105 T: -48 QT: 445 QTc: 480 Interpretive Statements SINUS RHYTHM WITH FIRST DEGREE AV BLOCK WITH FREQUENT VENTRICULAR PREMATURE COMPLEXES BORDERLINE RIGHT AXIS DEVIATION [QRS AXIS > 90] LOW QRS VOLTAGE IN PRECORDIAL LEADS [QRS DEFLECTION < 1.0 mV IN CHEST LEADS] ABNORMAL QRS-T ANGLE [QRS-T AXIS DIFFERENCE > 60] Compared to ECG 02/18/2018 19:45:54 Ventricular premature complex(es) now present Low QRS voltage now present Sinus bradycardia no longer present Left anterior fascicular block no longer present Electronically Signed On 06-14-2021 20:37:54 CDT by Jeanine Martines M.D. [id number]
--- NOTE | 2021-06-14 16:43 | XRR_ITS ---
PROCEDURE INFORMATION: Exam: XR Chest Exam date and time: 06/14/2021 4:43 PM Age: 66 years old Clinical indication: Other: Syncope TECHNIQUE: Imaging protocol: XR of the chest. Views: 1 view. COMPARISON: CR Chest 2 views* [id number] 07/07/2019 2:06 PM FINDINGS: Lungs: There is a 1 cm sized nodular opacity in the left lung overlying the left heart border and the posterior left 9th rib of uncertain significance. Further evaluation such as with CT scanning is suggested. No acute infiltrate is identified. Pleural spaces: Unremarkable. No pleural effusion. No pneumothorax. Heart/Mediastinum: Heart is upper limits normal in size. Vasculature: Atherosclerotic changes are present in the aortic arch. Bones/joints: There are postsurgical changes in the lower cervical spine. XR/XR chest 1V portable [id number] IMPRESSION: Question of new left solitary pulmonary nodule. Further evaluation such as with CT scanning suggested.
--- NOTE | 2021-06-14 16:54 | ED_ITS ---
Documented by User: Reginaldo Diehl DO 06/15/21 06:34 HPI - Arrhythmia/Palpitations General: Chief Complaint: Dizziness Stated Complaint: SYNCOPAL EPISODE WITH BRADYCARDIA Time Seen by Provider: 06/14/21 16:36 History of Present Illness: HPI narrative: 66-year-old female presents emergency room via EMS from a local clinic. She was there and was lightheaded dizzy had a syncopal episode and reported to have bradycardia. Patient denies any chest pain at this time she is feeling much better she is awake and alert regional bradycardia on the monitor. She not had any shortness of breath no recent illness. Patient denies any history of atrial fibrillation reviewing her laboratory test note that patient is on 360 mg daily of diltiazem. MD complaint: skipped beats and palpitations Onset (ago): hour(s) Context: occurred during rest Associated symptoms: Reports syncope; Deny anxiety, cough, diaphoresis, muscle cramps, nausea, paresthesias, pre- syncope, sense of impending doom, short of breath or vomiting Review of Systems Const: Denies: diaphoresis ENMT: Denies: throat pain, ear or mastoid pain, nasal discharge or nasal congestion Card: Reports: syncope; Denies: pre-syncope Resp: Denies: dyspnea, productive cough or non-productive cough GI: Denies: nausea or vomiting : Denies: flank pain, difficulty voiding, dysuria, urinary frequency or urinary urgency Musc: Denies: muscle cramps Skin/Breast: Denies: rash or pruritus Psych: Denies: anxiety PFSH ED PFSH: Medical History Allergic rhinoconjunctivitis, seasonal and perennial ASHD (arteriosclerotic heart disease) CAD (coronary artery disease) Carotid artery disease Chronic pain Chronic polyneuropathy Controlled diabetes mellitus with hyperglycemia, without long-term current use of insulin COPD (chronic obstructive pulmonary disease) Essential hypertension Generalized osteoarthritis GERD (gastroesophageal reflux disease) High risk medication use History of carotid artery stenosis HNP (herniated nucleus pulposus), lumbar Hypertriglyceridemia Lumbar spinal stenosis Osteoarthritis PAD (peripheral artery disease) Polyneuropathy Primary generalized (osteo)arthritis Rheumatoid arthritis with negative rheumatoid factor Vitamin D deficiency Surgical History S/P angioplasty with stent 2019 right leg 2018 heart S/P carotid endarterectomy Left 2019 S/P cervical spinal fusion 2005 S/P hysterectomy S/P knee replacement Bilateral 2006 Family History Other CAD (coronary artery disease) Diabetes Social History Second hand smoke exposure: No Smoking risk assessment/counseling performed?: No Alcohol intake: never Desire information about alcohol rehabilitation?: No Counseling given: No Desire information about substance/drug rehabilitation?: No Counseling given: No Caregiver/support person: No Lives independently: Yes Household members: spouse Marital status: Number of children: 3 Highest education level completed: 10th Grade service: No Current occupational status: disabled Pets and animals: Yes History of recent travel: No Current gender identity: Female Physical Exam Const: COMMON NORMALS: no acute distress GENERAL APPEARANCE: cooperative and comfortable ORIENTATION/CONSCIOUSNESS: Yes awake, Yes oriented to person, Yes oriented to place and Yes oriented to time HENMT: COMMON NORMALS: normocephalic, atraumatic and hearing grossly normal bilaterally HEAD & SCALP: normocephalic and atraumatic Neck/C-Spine: COMMON NORMALS: no JVD Resp: COMMON NORMALS: normal respiratory effort, No retractions, No use of accessory muscles and clear to auscultation bilaterally AUSCULTATION: clear to auscultation bilaterally Cardio: COMMON NORMALS: no JVD, regular rate, regular rhythm and No murmurs present (Cardio) RATE: regular rate RHYTHM: regular rhythm GI: COMMON NORMALS: Soft to palpation and No hepatosplenomegaly present AUSCULTATION: Yes normoactive bowel sounds PALPATION: Yes Soft to palpation, No Tenderness to palpation present (GI), No Guarding due to palpation present (GI) and Yes No hepatosplenomegaly present Extremity: GENERAL: Yes amputation (Right great toe) and Yes edema Neuro: SENSORIUM/ORIENTATION: Yes oriented to person, Yes oriented to place and Yes oriented to time Skin: COMMON NORMALS: no rashes or lesions noted GENERAL SKIN EXAM: no rashes or lesions noted Course Vital Signs: Vital signs: Vital Signs Temperature 98.2 F 06/14/21 20:00 Pulse Rate 81 06/14/21 22:26 Respiratory Rate 18 09/23/21 22:26 Blood Pressure 114/55 06/14/21 22:26 Pulse Oximetry 97 06/14/21 22:26 MDM - Arrhythmia/Palpitations MDM Narrative: Medical decision making narrative: Laboratory test pending. C are turned over to Dr. Manjarrez at change shift see the note for final diagnosis disposition. Lab Data: Labs: Lab Results 06/14/21 06/14/21 06/14/21 17:27 17:27 17:27 WBC 8.0 10^3/uL 10^3/ uL (4.0-10.0) RBC 3.55 10^6/uL L 10 ^6/uL (4.1-5.3) Hgb 10.7 g/dL L g/dL (11.5-15.3) Hct 34.2 % L % (37.0-47.0) MCV 96.3 fl fl (81-99) MCH 30.1 pg pg (28.0-34.0) MCHC 31.3 g/dL g/dL (30.0-36.0) RDW 14.1 % % (12.1-15.1) Plt Count 223 10^3/cmm 10^3 /cmm (130-400) MPV 11.3 fL H fL (7.4-10.4) Neut % (Auto) 64.4 % % Lymph % (Auto) 26.8 % % [place] % (Auto) 7.1 % % Eos % (Auto) 0.8 % % Baso % (Auto) 0.8 % % Neut # (Auto) 5.14 10^3/uL 10^3 /uL (1.8-7.7) Lymph # (Auto) 2.1 10^3/uL 10^3/ uL (0.8-4.8) [place] # (Auto) 0.6 10^3/uL 10^3/ uL (0.2-0.9) Eos # (Auto) 0.1 10^3/uL 10^3/ uL (0.0-0.8) Baso # (Auto) 0.1 10^3/uL 10^3/ uL (0.0-0.1) Nucleated RBC % (a uto) 0 % % Nucleated RBCs # 0.0 /100WBC /100W BC Sodium 138 mmol/L mmol/L (136-145) Potassium 4.4 mmol/L mmol/L (3.5-5.1) Chloride 103 mmol/L mmol/L (98-107) Carbon Dioxide 21 mmol/L L mmol/ L (22-29) Anion Gap 18.4 (5-19) BUN 17 mg/dL mg/dL (8-23) Creatinine 0.7 mg/dL mg/dL (0.5-0.9) GFR Calculation 84.2 mL/min L mL/ min (90-130) Glucose 171 mg/dL H mg/dL (65-115) Calculated Osmolal ity 292 mOsm/kg mOsm/ kg (285-295) Calcium 8.7 mg/dL mg/dL (8.5-10.5) Magnesium 1.9 mg/dL mg/dL (1.7-2.3) Total Bilirubin 0.2 mg/dL mg/dL (0.15-1.2) AST 29 U/L U/L (0-32) ALT 48 U/L H U/L (0-33) Alkaline Phosphata se 113 IU/L H IU/L (35-105) Troponin T Baselin e 21 ng/L H ng/L (0-10) Troponin T 120 Min nikolay Delta Troponin T Total Protein 5.8 g/dL L g/dL (6.6-8.7) Albumin 3.6 g/dL g/dL (3.5-5.2) Globulin 2.2 g/dL g/dL (1.3-4.6) Urine Color Urine Appearance Urine pH Ur Specific Gravit y Urine Protein Urine Glucose (UA) Urine Ketones Urine Blood Urine Nitrate Urine Bilirubin Urine Urobilinogen Ur Leukocyte Janeen ase 06/14/21 06/14/21 17:35 19:40 WBC RBC Hgb Hct MCV MCH MCHC RDW Plt Count MPV Neut % (Auto) Lymph % (Auto) [place] % (Auto) Eos % (Auto) Baso % (Auto) Neut # (Auto) Lymph # (Auto) [place] # (Auto) Eos # (Auto) Baso # (Auto) Nucleated RBC % (a uto) Nucleated RBCs # Sodium Potassium Chloride Carbon Dioxide Anion Gap BUN Creatinine GFR Calculation Glucose Calculated Osmolal ity Calcium Magnesium Total Bilirubin AST ALT Alkaline Phosphata se Troponin T Baselin e Troponin T 120 Min nikolay 23.66 ng/L H ng/L (0-10) Delta Troponin T 2.66 ABS# ABS# (0-10) Total Protein Albumin Globulin Urine Color Yellow (Yellow) Urine Appearance Clear (CLEAR) Urine pH 5 (5-7) Ur Specific Gravit y 1.025 (1.005-1.030) Urine Protein Neg (Negative) Urine Glucose (UA) Norm (Normal) Urine Ketones Negative (Negative) Urine Blood Neg (Negative) Urine Nitrate Negative (Negative) Urine Bilirubin 1+ H (Negative) Urine Urobilinogen 1 mg/dL H mg/dL (Negative) Ur Leukocyte Janeen ase Negative (Negative) Discharge Plan Discharge Patient Disposition: Home Clinical Impression: Near syncope Condition: Stable Prescriptions: Changed diltiazem HCl 360 mg capsule,extended release 24 hr 180 mg PO DAILY@0800 Qty: 30 RF: 2 No Action Victoza 2-Ravin 0.6 mg/0.1 mL (18 mg/3 mL) pen injector 1.8 mg SUBCUT DAILY Qty: 6 RF: 2 atorvastatin 40 mg tablet 40 mg PO BEDTIME@2200 Qty: 30 RF: 2 cholecalciferol (vitamin D3) 1,250 mcg (50,000 unit) capsule 1,250 mcg PO Q14D Qty: 2 RF: 2 lisinopril 40 mg tablet 40 mg PO DAILY Qty: 30 RF: 2 duloxetine 60 mg capsule,delayed release(DR/EC) 60 mg PO BID@0800,2200 Qty: 60 RF: 2 famotidine 20 mg tablet 20 mg PO BID@0800,2200 Qty: 60 RF: 2 Jardiance 10 mg tablet 10 mg PO QAM Qty: 30 RF: 2 furosemide [Lasix] 20 mg tablet 20 mg PO QAM PRN (Reason: edema) Qty: 30 RF: 2 aspirin [Adult Low Dose Aspirin] 81 mg tablet,delayed release (DR/EC) 81 mg PO DAILY RF: 0 omega-3 fatty acids [Fish Oil Concentrate] 1,000 mg capsule 1,000 mg PO DAILY@0800 RF: 0 hydrocodone-acetaminophen 10-325 mg tablet 1 tab PO Q6H PRN (Reason: Pain) RF: 0 albuterol sulfate [ProAir HFA] 90 mcg/actuation HFA aerosol inhaler 2 puff INHALATION Q6H PRN (Reason: Shortness Of Breath) RF: 0 vitamin B complex [B Complex-Vitamin B12] Tablet 1 tab PO DAILY@0800 RF: 0 ascorbic acid (vitamin C) 500 mg capsule 500 mg PO DAILY RF: 0 diphenoxylate-atropine [Lomotil] 2.5-0.025 mg tablet 1 tab PO BID RF: 0 multivitamin Tablet 1 tab PO DAILY Qty: 0 RF: 0 fluticasone propionate 50 mcg/actuation [place],Suspension 2 spray INTRANASAL DAILY PRN (Reason: Nasal Congestion) Qty: 0 RF: 0 diclofenac sodium 1 % gel See Rx Instructions .ROUTE .COMPLEX RF: 0 diphenhydramine-acetaminophen [Tylenol PM Extra Strength] 25-500 mg Tablet 1 tab PO Q4H PRN (Reason: pain/sleep) RF: 0 estradiol 0.01 % (0.1 mg/gram) cream See Rx Instructions .ROUTE .COMPLEX PRN (Reason: dryness) RF: 0 metformin 500 mg tablet extended release 24 hr 1,000 mg PO BID@0800,2000 RF: 0 Discharge Orders: Discharge ED (Routine); Ordered 06/14/21 Ordered By: Charity Manjarrez Referrals: Amy Morris, MECHANICAL SOUND TECHNICIAN-C [Primary Care Provider] - Rekha Covington MD [Physician] - 1-3 days Discharge Diet: Advance as tolerated Discharge Activity: Resume usual activity Patient Instructions: Near Syncope (ED) Coding Level of Care Code ED Wildlife Conservation Officer for Chg Fwd Exam Comprehensive Documented by User: Charity Manjarrez MD 06/14/21 22:40 HPI - Arrhythmia/Palpitations General: Chief Complaint: Dizziness Stated Complaint: SYNCOPAL EPISODE WITH BRADYCARDIA Time Seen by Provider: 06/14/21 16:36 PFSH ED PFSH: Medical History Allergic rhinoconjunctivitis, seasonal and perennial ASHD (arteriosclerotic heart disease) CAD (coronary artery disease) Carotid artery disease Chronic pain Chronic polyneuropathy Controlled diabetes mellitus with hyperglycemia, without long-term current use of insulin COPD (chronic obstructive pulmonary disease) Essential hypertension Generalized osteoarthritis GERD (gastroesophageal reflux disease) High risk medication use History of carotid artery stenosis HNP (herniated nucleus pulposus), lumbar Hypertriglyceridemia Lumbar spinal stenosis Osteoarthritis PAD (peripheral artery disease) Polyneuropathy Primary generalized (osteo)arthritis Rheumatoid arthritis with negative rheumatoid factor Vitamin D deficiency Surgical History S/P angioplasty with stent 2019 right leg 2018 heart S/P carotid endarterectomy Left 2019 S/P cervical spinal fusion 2005 S/P hysterectomy S/P knee replacement Bilateral 2006 Family History Other CAD (coronary artery disease) Diabetes Social History Second hand smoke exposure: No Smoking risk assessment/counseling performed?: No Alcohol intake: never Desire information about alcohol rehabilitation?: No Counseling given: No Desire information about substance/drug rehabilitation?: No Counseling given: No Caregiver/support person: No Lives independently: Yes Household members: spouse Marital status: Number of children: 3 Highest education level completed: 10th Grade service: No Current occupational status: disabled Pets and animals: Yes History of recent travel: No Current gender identity: Female Course Vital Signs: Vital signs: Vital Signs Temperature 98.2 F 06/14/21 20:00 Pulse Rate 81 06/14/21 22:26 Respiratory Rate 18 06/14/21 22:26 Blood Pressure 114/55 06/14/21 22:26 Pulse Oximetry 97 06/14/21 22:26 MDM - Arrhythmia/Palpitations MDM Narrative: Medical decision making narrative: Patient presents here with near syncope likely due to some slight bradycardia and borderline hypotension. She had stated that she had recently increased her medications and I spoke to her code enforcement supervisor Dr. Covington will decrease her Cardizem from 360 mg to 180 mg. Her blood pressure is he has been normal and she is felt normal here. She is stable for discharge is to follow-up with PCP and return if worsening. Lab Data: Labs: Lab Results 06/14/21 06/14/2106/14/21 17:27 17:27 17:27 WBC 8.0 10^3/uL 10^3/ uL (4.0-10.0) RBC 3.55 10^6/uL L 10 ^6/uL (4.1-5.3) Hgb 10.7 g/dL L g/dL (11.5-15.3) Hct 34.2 % L % (37.0-47.0) MCV 96.3 fl fl (81-99) MCH 30.1 pg pg (28.0-34.0) MCHC 31.3 g/dL g/dL (30.0-36.0) RDW 14.1 % % (12.1-15.1) Plt Count 223 10^3/cmm 10^3 /cmm (130-400) MPV 11.3 fL H fL (7.4-10.4) Neut % (Auto) 64.4 % % Lymph % (Auto) 26.8 % % [place] % (Auto) 7.1 % % Eos % (Auto) 0.8 % % Baso % (Auto) 0.8 % % Neut # (Auto) 5.14 10^3/uL 10^3 /uL (1.8-7.7) Lymph # (Auto) 2.1 10^3/uL 10^3/ uL (0.8-4.8) [place] # (Auto) 0.6 10^3/uL 10^3/ uL (0.2-0.9) Eos # (Auto) 0.1 10^3/uL 10^3/ uL (0.0-0.8) Baso # (Auto) 0.1 10^3/uL 10^3/ uL (0.0-0.1) Nucleated RBC % (a uto) 0 % % Nucleated RBCs # 0.0 /100WBC /100W BC Sodium 138 mmol/L mmol/L (136-145) Potassium 4.4 mmol/L mmol/L (3.5-5.1) Chloride 103 mmol/L mmol/L (98-107) Carbon Dioxide 21 mmol/L L mmol/ L (22-29) Anion Gap 18.4 (5-19) BUN 17 mg/dL mg/dL (8-23) Creatinine 0.7 mg/dL mg/dL (0.5-0.9) GFR Calculation 84.2 mL/min L mL/ min (90-130) Glucose 171 mg/dL H mg/dL (65-115) Calculated Osmolal ity 292 mOsm/kg mOsm/ kg (285-295) Calcium 8.7 mg/dL mg/dL (8.5-10.5) Magnesium 1.9 mg/dL mg/dL (1.7-2.3) Total Bilirubin 0.2 mg/dL mg/dL (0.15-1.2) AST 29 U/L U/L (0-32) ALT 48 U/L H U/L (0-33) Alkaline Phosphata se 113 IU/L H IU/L (35-105) Troponin T Baselin e 21 ng/L H ng/L (0-10) Troponin T 120 Min nikolay [place] Troponin T Total Protein 5.8 g/dL L g/dL (6.6-8.7) Albumin 3.6 g/dL g/dL (3.5-5.2) Globulin 2.2 g/dL g/dL (1.3-4.6) Urine Color Urine Appearance Urine pH Ur Specific Gravit y Urine Protein Urine Glucose (UA) Urine Ketones Urine Blood Urine Nitrate Urine Bilirubin Urine Urobilinogen Ur Leukocyte Janeen ase 06/14/21 06/14/21 17:35 19:40 WBC RBC Hgb Hct MCV MCH MCHC RDW Plt Count MPV Neut % (Auto) Lymph % (Auto) [place] % (Auto) Eos % (Auto) Baso % (Auto) Neut # (Auto) Lymph # (Auto) [place] # (Auto) Eos # (Auto) Baso # (Auto) Nucleated RBC % (a uto) Nucleated RBCs # Sodium Potassium Chloride Carbon Dioxide Anion Gap BUN Creatinine GFR Calculation Glucose Calculated Osmolal ity Calcium Magnesium Total Bilirubin AST ALT Alkaline Phosphata se Troponin T Baselin e Troponin T 120 Min nikolay 23.66 ng/L H ng/L (0-10) Delta Troponin T 2.66 ABS# ABS# (0-10) Total Protein Albumin Globulin Urine Color Yellow (Yellow) Urine Appearance Clear (CLEAR) Urine pH 5 (5-7) Ur Specific Gravit y 1.025 (1.005-1.030) Urine Protein Neg (Negative) Urine Glucose (UA) Norm (Normal) Urine Ketones Negative (Negative) Urine Blood Neg (Negative) Urine Nitrate Negative (Negative) Urine Bilirubin 1+ H (Negative) Urine Urobilinogen 1 mg/dL H mg/dL (Negative) Ur Leukocyte Janeen ase Negative (Negative) Imaging Data^: CT Chest: Attestation: I personally reviewed and interpreted this imaging study as follows: Radiologist's impression: [address] [address] [address] Scan Report Signed Patient: Alyssa Torre Unit #: [id number] : 1955 Age/Sex: 66 / F ADM Date: 06/14/21 Loc: ER Room/Bed: Attending Dr: Ordering Provider/Ordering MD: Charity Manjarrez MD Date of Service: 06/14/21 Procedure(s): CT angio chest PE protcl [id number] Accession Number(s): [id number] Report Number: [id number] PROCEDURE INFORMATION: Exam: CTA Chest With Contrast Exam date and time: 06/14/2021 7:38 PM Age: 66 years old Clinical indication: Shortness of breath; Prior surgery; Surgery type: Gb, stents; Additional info: Mass TECHNIQUE: Imaging protocol: Computed tomographic angiography of the chest with contrast. 3D rendering (Not supervised by radiologist): MIP and/or 3D reconstructed images were created by the technologist. Radiation optimization: All CT scans at this facility use at least one of these dose optimization techniques: automated exposure control; mA and/or kV adjustment per patient size (includes targeted exams where dose is matched to clinical indication); or iterative reconstruction. Contrast material: OMNI 350; Contrast volume: 87 ml; Contrast route: INTRAVENOUS (IV); COMPARISON: CR XR chest 1V portable [id number] 06/14/2021 5:04 PM RADIATION DOSE METRICS: Total DLP (mGy-cm): 965.51 FINDINGS: Pulmonary arteries: There is no evidence of filling defects within the pulmonary arterial circulation to suggest pulmonary embolism. Aorta: Atherosclerotic calcifications are present in the aortic arch and descending thoracic aorta.There is no thoracic aortic aneurysm or dissection. Lungs: There is some dependent atelectasis at the right lung base. There are areas of subsegmental atelectasis in the right middle lobe and in the lingula. The lingular atelectasis is likely responsible for the appearance of possible nodule on the recent chest radiograph. No actual pulmonary nodule is identified on this examination. Pleural spaces: There is a small right pleural effusion. Heart: The heart is mildly enlarged. Lymph nodes: There is minimal right hilar adenopathy measuring up to 10 x 16 mm. There also some mildly prominent subcarinal and pretracheal lymph nodes measuring up to 12 x 18 mm and small prevascular lymph nodes. Adrenal glands: There is a 36 x 41 mm size left adrenal mass with a few coarse calcifications. This mass measures in the minus tendon -20 Hounsfield unit range which is consistent with benign adenoma not significantly changed compared with 03/12/2021. Bones/joints: Unremarkable. No acute fracture. Soft tissues: Unremarkable. CT/CT angio chest PE protcl [id number] IMPRESSION: 1. Mild cardiomegaly 2. Small left pleural effusion 3. No evidence of pulmonary embolism. 4. Mild atelectatic changes. Radiation Dose CTDIVOL = (mGy): DLP = 965.51 (mGy-cm) Dictated By: Joaquim Weller Signed By: Joaquim Weller Signed Date/Time: 06/14/212155 DD/ 53 Discharge Plan Discharge Patient Disposition: Home Clinical Impression: Near syncope Condition: Stable Prescriptions: Changed diltiazem HCl 360 mg capsule,extended release 24 hr 180 mg PO DAILY@0800 Qty: 30 RF: 2 No Action Victoza 2-Ravin 0.6 mg/0.1 mL (18 mg/3 mL) pen injector 1.8 mg SUBCUT DAILY Qty: 6 RF: 2 atorvastatin 40 mg tablet 40 mg PO BEDTIME@2200 Qty: 30 RF: 2 cholecalciferol (vitamin D3) 1,250 mcg (50,000 unit) capsule 1,250 mcg PO Q14D Qty: 2 RF: 2 lisinopril 40 mg tablet 40 mg PO DAILY Qty: 30 RF: 2 duloxetine 60 mg capsule,delayed release(DR/EC) 60 mg PO BID@0800,2200 Qty: 60 RF: 2 famotidine 20 mg tablet 20 mg PO BID@0800,2200 Qty: 60 RF: 2 Jardiance 10 mg tablet 10 mg PO QAM Qty: 30 RF: 2 furosemide [Lasix] 20 mg tablet 20 mg PO QAM PRN (Reason: edema) Qty: 30 RF: 2 aspirin [Adult Low Dose Aspirin] 81 mg tablet,delayed release (DR/EC) 81 mg PO DAILY RF: 0 omega-3 fatty acids [Fish Oil Concentrate] 1,000 mg capsule 1,000 mg PO DAILY@0800 RF: 0 hydrocodone-acetaminophen 10-325 mg tablet 1 tab PO Q6H PRN (Reason: Pain) RF: 0 albuterol sulfate [ProAir HFA] 90 mcg/actuation HFA aerosol inhaler 2 puff INHALATION Q6H PRN (Reason: Shortness Of Breath) RF: 0 vitamin B complex [B Complex-Vitamin B12] Tablet 1 tab PO DAILY@0800 RF: 0 ascorbic acid (vitamin C) 500 mg capsule 500 mg PO DAILY RF: 0 diphenoxylate-atropine [Lomotil] 2.5-0.025 mg tablet 1 tab PO BID RF: 0 multivitamin Tablet 1 tab PO DAILY Qty: 0 RF: 0 fluticasone propionate 50 mcg/actuation [place],Suspension 2 spray INTRANASAL DAILY PRN (Reason: Nasal Congestion) Qty: 0 RF: 0 diclofenac sodium 1 % gel See Rx Instructions .ROUTE .COMPLEX RF: 0 diphenhydramine-acetaminophen [Tylenol PM Extra Strength] 25-500 mg Tablet 1 tab PO Q4H PRN (Reason: pain/sleep) RF: 0 estradiol 0.01 % (0.1 mg/gram) cream See Rx Instructions .ROUTE .COMPLEX PRN (Reason: dryness) RF: 0 metformin 500 mg tablet extended release 24 hr 1,000 mg PO BID@0800,1999 RF: 0 Discharge Orders: Discharge ED (Routine); Ordered 06/14/21 Ordered By: Charity Manjarrez Referrals: Amy Morris, MECHANICAL SOUND TECHNICIAN-C [Primary Care Provider] - Rekha Covington MD [Physician] - 1-3 days Discharge Diet: Advance as tolerated Discharge Activity: Resume usual activity Patient Instructions: Near Syncope (ED) Coding Level of Care Code ED Wildlife Conservation Officer for Chg Fwd Exam Comprehensive
--- NOTE | 2021-06-14 17:00 | PC.NURSE ---
per EMS prior to arrival Ortho lying 94/59 hR 62, sitting 102/67 HR 68 standing 102/55 HR 64
[2021-06-14 17:43] LABS: Add Urine Microscopic? NO; Charge for UA Resulting for Rev
[2021-06-14 18:25] LABS: Basophils # 0.1 10^3/uL (0.0-0.1); Basophils % 0.8 %; Eosinophils # 0.1 10^3/uL (0.0-0.8); Eosinophils % 0.8 %; Hematocrit 34.2 % (37.0-47.0); Hemoglobin 10.7 g/dL (11.5-15.3); Lymphocytes # 2.1 10^3/uL (0.8-4.8); Lymphocytes % 26.8 %; Mean Corpuscular HGB Conc 31.3 g/dL (30.0-36.0); Mean Corpuscular Hemoglobin 30.1 pg (28.0-34.0); Mean Corpuscular Volume 96.3 fl (81-99); Mean Platelet Volume 11.3 fL (7.4-10.4); Monocytes # 0.6 10^3/uL (0.2-0.9); Monocytes % 7.1 %; Neutrophils # 5.14 10^3/uL (1.8-7.7); Neutrophils % 64.4 %; Nucleated Red Blood Cells % 0 %; Platelet Count 223 10^3/cmm (130-400); Red Blood Count 3.55 10^6/uL (4.1-5.3); Red Cell Distribution Width 14.1 % (12.1-15.1)
[2021-06-14 18:27] LABS: Bilirubin Urine 1+ (Negative); Blood Urine Neg (Negative); Glucose Urine UA Norm (Normal); Ketones Urine Negative (Negative); Leukocyte Esterase Urine Negative (Negative); Nitrate Urine Negative (Negative); Protein Urine Neg (Negative); Specific Gravity, Urine 1.025 (1.005-1.030); Urine Appearance Clear (CLEAR); Urine Color Yellow (Yellow); Urobilinogen Urine 1 mg/dL (Negative); pH Urine 5 (5-7)
--- NOTE | 2021-06-14 18:42 | ECG_ITS ---
[facility] Test Date: 2021-06-14 Pat Name: Alyssa Torre Department: Room: Gender: Female Staff Development Nurse: : 1955 Requested By: Reginaldo Pope Order Number: [id number] Reading MD: JAZIEL TORRES Measurements Intervals [place] Rate: 77 P: 74 W[place]: 222 QRS: -44 QRSD: 97 T: 131 QT: 395 QTc: 448 Interpretive Statements SINUS RHYTHM WITH FIRST DEGREE AV BLOCK WITH FREQUENT VENTRICULAR PREMATURE COMPLEXES LEFT AXIS DEVIATION [QRS AXIS < -30] LOW QRS VOLTAGE IN PRECORDIAL LEADS [QRS DEFLECTION < 1.0 mV IN CHEST LEADS] ABNORMAL QRS-T ANGLE [QRS-T AXIS DIFFERENCE > 60] Compared to ECG 06/14/2021 17:01:34 Left-axis deviation now present Electronically Signed On 06-15-2021 15:43:11 CDT by JAZIEL TORRES [id number] f
[2021-06-14 19:03] LABS: Alanine Aminotransferase 48 U/L (0-33); Albumin Level 3.6 g/dL (3.5-5.2); Alkaline Phosphatase 113 IU/L (35-105); Anion Gap 18.4 (5-19); Aspartate Amino Transferase 29 U/L (0-32); Blood Urea Nitrogen 17 mg/dL (8-23); Calcium 8.7 mg/dL (8.5-10.5); Carbon Dioxide 21 mmol/L (22-29); Chloride 103 mmol/L (98-107); Globulin 2.2 g/dL (1.3-4.6); Glomerular Filtration Rate 84.2 mL/min (90-130); Glucose 171 mg/dL (65-115); Magnesium 1.9 mg/dL (1.7-2.3); Osmolality Calculated 292 mOsm/kg (285-295); Potassium 4.4 mmol/L (3.5-5.1); Sodium 138 mmol/L (136-145); Total Bilirubin 0.2 mg/dL (0.15-1.2); Total Protein 5.8 g/dL (6.6-8.7); Troponin(5th) Baseline 21 ng/L (0-10)
--- NOTE | 2021-06-14 19:38 | CTR_ITS ---
PROCEDURE INFORMATION: Exam: CTA Chest With Contrast Exam date and time: 06/14/2021 7:38 PM Age: 66 years old Clinical indication: Shortness of breath; Prior surgery; Surgery type: Gb, stents; Additional info: Mass TECHNIQUE: Imaging protocol: Computed tomographic angiography of the chest with contrast. 3D rendering (Not supervised by radiologist): MIP and/or 3D reconstructed images were created by the technologist. Radiation optimization: All CT scans at this facility use at least one of these dose optimization techniques: automated exposure control; mA and/or kV adjustment per patient size (includes targeted exams where dose is matched to clinical indication); or iterative reconstruction. Contrast material: OMNI 350; Contrast volume: 87 ml; Contrast route: INTRAVENOUS (IV); COMPARISON: CR XR chest 1V portable [id number] 06/14/2021 5:04 PM RADIATION DOSE METRICS: Total DLP (mGy-cm): 965.51 FINDINGS: Pulmonary arteries: There is no evidence of filling defects within the pulmonary arterial circulation to suggest pulmonary embolism. Aorta: Atherosclerotic calcifications are present in the aortic arch and descending thoracic aorta.There is no thoracic aortic aneurysm or dissection. Lungs: There is some dependent atelectasis at the right lung base. There are areas of subsegmental atelectasis in the right middle lobe and in the lingula. The lingular atelectasis is likely responsible for the appearance of possible nodule on the recent chest radiograph. No actual pulmonary nodule is identified on this examination. Pleural spaces: There is a small right pleural effusion. Heart: The heart is mildly enlarged. Lymph nodes: There is minimal right hilar adenopathy measuring up to 10 x 16 mm. There also some mildly prominent subcarinal and pretracheal lymph nodes measuring up to 12 x 18 mm and small prevascular lymph nodes. Adrenal glands: There is a 36 x 41 mm size left adrenal mass with a few coarse calcifications. This mass measures in the minus tendon -20 Hounsfield unit range which is consistent with benign adenoma not significantly changed compared with 03/12/2021. Bones/joints: Unremarkable. No acute fracture. Soft tissues: Unremarkable. CT/CT angio chest PE protcl [id number] IMPRESSION: 1. Mild cardiomegaly 2. Small left pleural effusion 3. No evidence of pulmonary embolism. 4. Mild atelectatic changes. Radiation Dose CTDIVOL = (mGy): DLP = 965.51 (mGy-cm)
[2021-06-14 20:09] LABS: Troponin 5 2HR 23.66 ng/L (0-10); Troponin 5 2HR Delta 2.66 ABS# (0-10)
[2021-06-14] MEDS: iohexol 350 mg/mL 100 mL Btl IV (20:33)
--- NOTE | 2021-06-14 21:59 | PC.NURSE ---
Report to LLOYD Calvillo
== END 2021-06-14 22:20 | disposition home or self-care (01) ==
PROVIDERS: Family Medicine; Emergency Provider Emergency Medicine; PCP Nurse Practitioner
DX: R55 Syncope and collapse (principal); Z79.82 Long term (current) use of aspirin; Z79.84 Long term (current) use of oral hypoglycemic drugs; I25.10 Atherosclerotic heart disease of native coronary artery without angina pectoris; E11.42 Type 2 diabetes mellitus with diabetic polyneuropathy; J44.9 Chronic obstructive pulmonary disease, unspecified; I10 Essential (primary) hypertension
CPT/HCPCS: 36415; 71045; 71275; 80053; 81003; 83735; 84484; 85025; 93005; 99284; Q9967

== ENCOUNTER 2021-06-26 | Outpatient (CLI) | payer MEDICARE, SELFPAY | END 2021-06-26 00:01 | disposition home or self-care (01) | LOC: RAD 01-30 12:50 | PROVIDERS: PCP Nurse Practitioner; Visit Provider Nurse Practitioner Family | DX: E11.65 Type 2 diabetes mellitus with hyperglycemia (principal); E55.9 Vitamin D deficiency, unspecified | CPT/HCPCS: 80053; 82306; 82607; 83036; 84443; 85025 ==

== ENCOUNTER → 2021-07-02 08:38 | Outpatient (BNVA) | payer MEDICARE, SELFPAY | PROVIDERS: PCP Nurse Practitioner; Visit Provider Nurse Practitioner | DX: D64.9 Anemia, unspecified (principal); E11.65 Type 2 diabetes mellitus with hyperglycemia; I10 Essential (primary) hypertension | CPT/HCPCS: 83550 ==

== ENCOUNTER → 2021-10-02 10:07 | Outpatient (BNVA) | payer MEDICARE, SELFPAY | PROVIDERS: PCP Nurse Practitioner; Visit Provider Nurse Practitioner | DX: E11.65 Type 2 diabetes mellitus with hyperglycemia (principal); E55.9 Vitamin D deficiency, unspecified; I10 Essential (primary) hypertension | CPT/HCPCS: 80053; 80061; 82306; 83036; 84443 ==

== ENCOUNTER → 2021-10-09 15:13 | Outpatient (BNVA) | payer MEDICARE, SELFPAY | PROVIDERS: PCP Nurse Practitioner; Visit Provider Nurse Practitioner | DX: E11.65 Type 2 diabetes mellitus with hyperglycemia (principal); I10 Essential (primary) hypertension; J43.8 Other emphysema; E55.9 Vitamin D deficiency, unspecified; G62.9 Polyneuropathy, unspecified; K21.9 Gastro-esophageal reflux disease without esophagitis; E61.1 Iron deficiency; J30.2 Other seasonal allergic rhinitis; H10.10 Acute atopic conjunctivitis, unspecified eye; J30.89 Other allergic rhinitis; Z79.4 Long term (current) use of insulin; I49.9 Cardiac arrhythmia, unspecified | CPT/HCPCS: 81000 ==

== ENCOUNTER 2021-11-10 12:16 | Emergency (ER) | payer MEDICARE, SELFPAY ==
[2021-11-10 12:45] VITALS: BP 152/90; PULSE 91; RESP 22; TEMP 36.7; O2SAT 96; BMI 51.7
--- NOTE | 2021-11-10 13:21 | XRR_ITS ---
PROCEDURE INFORMATION: Exam: XR Chest Exam date and time: 11/10/2021 1:21 PM Age: 66 years old Clinical indication: Dyspnea and other: Abdominal bloating; Additional info: Edema, SOB TECHNIQUE: Imaging protocol: XR of the chest. Views: 1 view. COMPARISON: CR XR chest 1V portable [id number] 06/14/2021 5:04 PM FINDINGS: Lungs: Low lung volumes. Mild pulmonary vascular congestion without overt edema. Linear scarring left lateral lung base. No consolidation. Pleural spaces: Unremarkable. No pleural effusion. No pneumothorax. Heart/Mediastinum: Cardiac silhouette remains mildly enlarged. Bones/joints: No acute bony abnormality. Partially imaged cervical fusion plate and screws. XR/XR chest 1V portable [id number] IMPRESSION: No acute findings.
[2021-11-10 13:39] VITALS: BP 125/82; PULSE 84; RESP 20; O2SAT 97
[2021-11-10 13:50] LABS: Basophils # 0.1 10^3/uL (0.0-0.1); Eosinophils % 0.5 %; Hematocrit 39.7 % (37.0-47.0); Hemoglobin 12.1 g/dL (11.5-15.3); Lymphocytes % 27.3 %; Mean Corpuscular HGB Conc 30.5 g/dL (30.0-36.0); Mean Corpuscular Hemoglobin 28.7 pg (28.0-34.0); Mean Corpuscular Volume 94.3 fl (81-99); Monocytes # 0.6 10^3/uL (0.2-0.9); Monocytes % 7.7 %; Neutrophils # 4.62 10^3/uL (1.8-7.7); Neutrophils % 63.2 %; Nucleated Red Blood Cells % 0 %; Platelet Count 242 10^3/cmm (130-400); Red Blood Count 4.21 10^6/uL (4.1-5.3); Red Cell Distribution Width 17.3 % (12.1-15.1); White Blood Count 7.3 10^3/uL (4.0-10.0)
--- NOTE | 2021-11-10 13:50 | ED_ITS ---
Documented by User: CAROLYN Franco 11/10/21 16:55 HPI - General Adult General: Chief complaint: General Medical Stated complaint: Swelling, Bloating Time Seen by Provider: 11/10/21 12:58 Source: patient Mode of arrival: ambulatory Limitations: no limitations History of Present Illness: Patient is a 66-year-old female with multiple medical conditions including chronic kidney disease, coronary disease with stenting, chronic pain, dyslipidemia, hypertension, morbid obesity, COPD, prior tobacco abuse, bilateral carotid stenosis, GERD, chronic neck and back pain, arthritis, polyneuropathy, diabetes with peripheral neuropathy, peripheral arterial disease, and opiate use among many others here for concerns of swelling to bilateral lower extremities. Patient states swelling has been progressively worsening over the past month or so. She takes 40 mg Lasix daily. Patient states she has now having swelling all the way up her legs and into her abdomen and buttocks. She complains of some very mild intermittent shortness of breath with exertion. She tells me she is able to lie flat at night without difficulty. She does not complain of PND. Patient does use a CPAP at night. Patient states she does have an outpatient echocardiogram ordered and states they are supposed to be calling her shortly to get this scheduled. Onset (ago): week(s) Relieving factors: none Exacerbating factors: none Associated symptoms: Reports dyspnea (occasional); Deny chest pain, malaise, nausea, rash, palpitations, syncope or vomiting Review of Systems Const: Denies: fever(s), chills, body aches, fatigue or malaise Card: Reports: swelling of feet/ankles and dyspnea on exertion; Denies: chest pain, palpitations, irregular heart rhythm, edema, l ightheadedness, syncope, pre-syncope, orthopnea, leg pain with exertion or acrocyanosis Resp: Reports: dyspnea (occasional); Denies: productive cough, non-productive cough, wheezing, hemoptysis or chest congestion GI: Denies: abdominal pain, nausea, vomiting or diarrhea Musc: Reports: extremity swelling; Denies: neck pain, back pain, joint pain, joint swelling, joint redness, joint warmth or limited range of motion Skin/Breast: Denies: rash Neuro: Denies: numbness in extremities, weakness in extremities or sensory changes PFS ED PFSH: Medical History Allergic rhinoconjunctivitis, seasonal and perennial ASHD (arteriosclerotic heart disease) CAD (coronary artery disease) Carotid artery disease Chronic pain Chronic polyneuropathy COPD (chronic obstructive pulmonary disease) Diabetes mellitus with hyperglycemia, with long-term current use of insulin Essential hypertension Generalized osteoarthritis GERD (gastroesophageal reflux disease) Heart block High risk medication use History of carotid artery stenosis HNP (herniated nucleus pulposus), lumbar Hypertriglyceridemia Lumbar spinal stenosis Osteoarthritis PAD (peripheral artery disease) Polyneuropathy Primary generalized (osteo)arthritis Rheumatoid arthritis with negative rheumatoid factor Vitamin D deficiency Surgical History S/P angioplasty with stent 2018 right leg 2018 heart S/P carotid endarterectomy Left 2019 S/P cervical spinal fusion 2005 S/P hysterectomy S/P knee replacement Bilateral 2006 Family History Other CAD (coronary artery disease) Diabetes Social History Second hand smoke exposure: No Smoking risk assessment/counseling performed?: No Alcohol intake: never Desire information about alcohol rehabilitation?: No Counseling given: No Desire information about substance/drug rehabilitation?: No Counseling given: No Caregiver/support person: No Lives independently: Yes Household members: spouse Marital status: Number of children: 3 Highest education level completed: 10th Grade service: No Current occupational status: disabled Pets and animals: Yes History of recent travel: No Current gender identity: Female Physical Exam Const: COMMON NORMALS: no acute distress, patient oriented x3, no limitations and alert NUTRITIONAL APPEARANCE: obese morbidly obese (BMI >50) ORIENTATION/CONSCIOUSNESS: Yes awake, Yes oriented to person, Yes oriented to place and Yes oriented to time HENMT: COMMON NORMALS: normocephalic and atraumatic HEAD & SCALP: normal to inspection, normocephalic and atraumatic Resp: COMMON NORMALS: normal respiratory effort and clear to auscultation bilaterally AUSCULTATION: clear to auscultation bilaterally Cardio: COMMON NORMALS: regular rate and regular rhythm RATE: regular rate RHYTHM: regular rhythm GI: COMMON NORMALS: Normal to inspection, nondistended, normoactive bowel sounds present, Soft to palpation and non-tender INSPECTION: Yes Abdominal wall edema PALPATION: Yes Soft to palpation and No Ascites present OTHER: limited secondary to body habitus Extremity: COMMON NORMALS: capillary refill normal, no joint enlargement and no calf tenderness GENERAL: Yes edema (bilateral LE pitting edema; edema extends up legs and into buttocks) Neuro: COMMON NORMALS: patient oriented x3, moves all extremities, no focal motor deficits and no sensory deficits noted SENSORIUM/ORIENTATION: Yes alert, Yes oriented to person, Yes oriented to place and Yes oriented to time Skin: COMMON NORMALS: no rashes or lesions noted GENERAL SKIN EXAM: no rashes or lesions noted Course Vital Signs: Vital signs: Vital Signs Temperature 98.1 F 11/10/21 12:45 Pulse Rate 76 11/10/21 16:52 Respiratory Rate 18 11/10/21 16:52 Blood Pressure 129/91 11/10/21 16:52 Pulse Oximetry 98 11/10/21 16:52 MDM - General Adult Medical Decision Making Patient is a nice 66-year-old female who presents to ED today with complaints of bilateral lower extremity progressively worsening edema. Patient was seen by her PCP last month for similar symptoms and at that point she states symptoms had been present for weeks-so this is been going on for at least 6 weeks now. She currently is on 40 mg daily Lasix. She has an outpatient order for an echocardiogram that has yet to be scheduled. Patient is not complaining of shortness of breath or chest pain. Her vitals today are normal. She appears in no acute distress. Lab work revealing a BNP of roughly 7200. Most recent previous was 4 years ago. She has a baseline troponin of 34 with a negative delta. CXR shows no obvious fluid overload. Discussed case with Dr. Gage who agrees with IV Lasix here and placing patient on an increased dose of Lasix at home with close follow-up with cardiology. We will also place her on potassium supplementation. Strict return to ED precautions verbally given to patient. Lab Data : 11/10/21 13:38 11/10/21 13:38 Radiology Impressions Chest X-Ray 11/10/21 13:21 IMPRESSION: No acute findings. Laboratory Results WBC 7.3 10^3/uL (4.0-10.0) 11/10/21 13:38 RBC 4.21 10^6/uL (4.1-5.3) 11/10/21 13:38 Hgb 12.1 g/dL (11.5-15.3) 11/10/21 13:38 Hct 39.7 % (37.0-47.0) 11/10/21 13:38 MCV 94.3 fl (81-99) 11/10/21 13:38 MCH 28.7 pg (28.0-34.0) 11/10/21 13:38 MCHC 30.5 g/dL (30.0-36.0) 11/10/21 13:38 RDW 17.3 % (12.1-15.1) H 11/10/21 13:38 Plt Count 242 10^3/cmm (130-400) 11/10/21 13:38 MPV 10.0 fL (7.4-10.4) 11/10/21 13:38 Neut % (Auto) 63.2 % 11/10/21 13:38 Lymph % (Auto) 27.3 % 11/10/21 13:38 [place] % (Auto) 7.7 % 11/10/21 13:38 Eos % (Auto) 0.5 % 11/10/21 13:38 Baso % (Auto) 1.0 % 11/10/21 13:38 Neut # (Auto) 4.62 10^3/uL (1.8-7.7) 11/10/21 13:38 Lymph # (Auto) 2.0 10^3/uL (0.8-4.8) 11/10/21 13:38 [place] # (Auto) 0.6 10^3/uL (0.2-0.9) 11/10/21 13:38 Eos # (Auto) 0.0 10^3/uL (0.0-0.8) 11/10/21 13:38 Baso # (Auto) 0.1 10^3/uL (0.0-0.1) 11/10/21 13:38 Nucleated RBC % (auto) 0 % 11/10/21 13:38 Nucleated RBCs # 0.0 /100WBC 11/10/21 13:38 Sodium 138 mmol/L (136-145) 11/10/21 13:38 Potassium 4.0 mmol/L (3.5-5.1) 11/10/21 13:38 Chloride 104 mmol/L (98-107) 11/10/21 13:38 Carbon Dioxide 22 mmol/L (22-29) 11/10/21 13:38 Anion Gap 16.0 (5-19) 11/10/21 13:38 BUN 10 mg/dL (8-23) 11/10/21 13:38 Creatinine 0.5 mg/dL (0.5-0.9) 11/10/21 13:38 GFR Calculation 124.2 mL/min (90-130) 11/10/21 13:38 Glucose 184 mg/dL (65-115) H 11/10/21 13:38 Calculated Osmolality 290 mOsm/kg (285-295) 11/10/21 13:38 Calcium 9.3 mg/dL (8.5-10.5) 11/10/21 13:38 Total Bilirubin 0.8 mg/dL (0.15-1.2) 11/10/21 13:38 AST 14 U/L (0-32) 11/10/21 13:38 ALT 12 U/L (0-33) 11/10/21 13:38 Alkaline Phosphatase 112 IU/L (35-105) H 11/10/21 13:38 Troponin T Baseline 34 ng/L (0-10) H 11/10/21 13:38 Troponin T 120 Minute 33.19 ng/L (0-10) H 11/10/21 15:39 Delta Troponin T -0.81 ABS# (0-10) L 11/10/21 15:39 NT-Pro-B Natriuret Pep 7219 pg/mL (0-125) H 11/10/21 13:38 Total Protein 6.3 g/dL (6.6-8.7) L 11/10/21 13:38 Albumin 3.9 g/dL (3.5-5.2) 11/10/21 13:38 Globulin 2.4 g/dL (1.3-4.6) 11/10/21 13:38 Urine Color Yellow (Yellow) 11/10/21 14:09 Urine Appearance Clear (CLEAR) 11/10/21 14:09 Urine pH 5 (5-7) 11/10/21 14:09 Ur Specific [place] 1.010 (1.005-1.030) 11/10/21 14:09 Urine Protein Neg (Negative) 11/10/21 14:09 Urine Glucose (UA) Norm (Normal) 11/10/21 14:09 Urine Ketones Negative (Negative) 11/10/21 14:09 Urine Blood Neg (Negative) 11/10/21 14:09 Urine Nitrate Negative (Negative) 11/10/21 14:09 Urine Bilirubin Neg (Negative) 11/10/21 14:09 Urine Urobilinogen Norm mg/dL (Negative) 11/10/21 14:09 Ur Leukocyte Esterase Negative (Negative) 11/10/21 14:09 Discharge Plan Discharge Patient Disposition: Home Clinical Impression: Bilateral edema of lower extremity Condition: Stable Prescriptions: New Lasix 40 mg tablet 40 mg PO BID Qty: 10 0RF potassium chloride 20 mEq tablet extended release 20 meq PO DAILY Qty: 10 0RF No Action magnesium 250 mg tablet 250 mg PO DAILY 0RF albuterol sulfate [ProAir HFA] 90 mcg/actuation HFA aerosol inhaler 2 puff INHALATION Q6H PRN (Reason: Shortness Of Breath) Qty: 8.5 2RF atorvastatin 40 mg tablet 40 mg PO BEDTIME@2200 Qty: 30 2RF cholecalciferol (vitamin D3) 1,250 mcg (50,000 unit) capsule 1,250 mcg PO Q14D Qty: 2 2RF Rx Instructions: take twice monthly duloxetine 60 mg capsule,delayed release(DR/EC) 60 mg PO BID@0800,2200 Qty: 60 2RF Jardiance 25 mg tablet 25 mg PO QAM Qty: 30 2RF famotidine 20 mg tablet 20 mg PO BID@0800,2200 Qty: 60 2RF ferrous gluconate 324 mg (37.5 mg iron) tablet 324 mg PO DAILY Qty: 30 2RF fluticasone propionate 50 mcg/actuation spray,suspension 2 spray INTRANASAL DAILY Qty: 16 2RF furosemide [Lasix] 20 mg tablet 40 mg PO QAM PRN (Reason: edema) Qty: 60 2RF Victoza 3-Ravin 0.6 mg/0.1 mL (18 mg/3 mL) pen injector 1.8 mg SUBCUT Q24H Qty: 9 2RF lisinopril 40 mg tablet 40 mg PO DAILY Qty: 30 2RF metformin 500 mg tablet extended release 24 hr 2,000 mg PO DAILY Qty: 120 2RF Levemir FlexTouch U-100 Insuln 100 unit/mL (3 mL) insulin pen 10 unit SUBCUT DAILY Qty: 15 0RF aspirin [Adult Low Dose Aspirin] 81 mg tablet,delayed release (DR/EC) 81 mg PO DAILY 0RF omega-3 fatty acids [Fish Oil Concentrate] 1,000 mg capsule 1,000 mg PO DAILY@0800 0RF hydrocodone-acetaminophen 10-325 mg tablet 1 tab PO Q6H PRN (Reason: Pain) 0RF vitamin B complex [B Complex-Vitamin B12] Tablet 1 tab PO DAILY@0800 0RF ascorbic acid (vitamin C) 500 mg capsule 500 mg PO DAILY 0RF multivitamin Tablet 1 tab PO DAILY Qty: 0 0RF diphenhydramine-acetaminophen [Tylenol PM Extra Strength] 25-500 mg Tablet 1 tab PO Q4H PRN (Reason: pain/sleep) 0RF estradiol 0.01 % (0.1 mg/gram) cream See Rx Instructions .ROUTE .COMPLEX PRN (Reason: dryness) 0RF Rx Instructions: 1 g vaginally PRN dry episodes Discharge Orders: Discharge ED (Routine); Ordered 11/10/21 Ordered By: Em Zepeda Referrals: Amy Morris, FILE CONVERSION OPERATOR-C [Primary Care Provider] - Activity Restrictions/Additional Instructions: We are increasing your Lasix to 40mg TWICE DAILY (total of 80mg daily) x 5 days. We are also starting you on potassium. After prescription runs out go back to your normal 40mg Lasix daily. Case management should contact you this week to set you up with a follow-up cardiology appointment for further evaluation. Hopefully you will hear from central scheduling this week for scheduling of your outpatient echocardiogram. As we discussed you need to return to the emergency department for worsening swelling, severe shortness of breath or difficulty breathing especially with lying flat or exertion, chest pains, or any other concerns you may have. Coding Level of Care Code ED Salesforce Trainer for Chg Fwd Exam Comprehensive Documented by User: Clark Gage DO 11/10/21 17:36 HPI - General Adult General: Chief complaint: General Medical Stated complaint: Swelling, Bloating Time Seen by Provider: 11/10/21 12:58 PFSH ED PFSH: Medical History Allergic rhinoconjunctivitis, seasonal and perennial ASHD (arteriosclerotic heart disease) CAD (coronary artery disease) Carotid artery disease Chronic pain Chronic polyneuropathy COPD (chronic obstructive pulmonary disease) Diabetes mellitus with hyperglycemia, with long-term current use of insulin Essential hypertension Generalized osteoarthritis GERD (gastroesophageal reflux disease) Heart block High risk medication use History of carotid artery stenosis HNP (herniated nucleus pulposus), lumbar Hypertriglyceridemia Lumbar spinal stenosis Osteoarthritis PAD (peripheral artery disease) Polyneuropathy Primary generalized (osteo)arthritis Rheumatoid arthritis with negative rheumatoid factor Vitamin D deficiency Surgical History S/P angioplasty with stent 2019 right leg 2018 heart S/P carotid endarterectomy Left 2019 S/P cervical spinal fusion 2005 S/P hysterectomy S/P knee replacement Bilateral 2006 Family History Other CAD (coronary artery disease) Diabetes Social History Second hand smoke exposure: No Smoking risk assessment/counseling performed?: No Alcohol intake: never Desire information about alcohol rehabilitation?: No Counseling given: No Desire information about substance/drug rehabilitation?: No Counseling given: No Caregiver/support person: No Lives independently: Yes Household members: spouse Marital status: Number of children: 3 Highest education level completed: 10th Grade service: No Current occupational status: disabled Pets and animals: Yes History of recent travel: No Current gender identity: Female Course ED course: This patient's work-up and presentation was discussed with me by the physician's home care assistant. I did not personally interview or evaluate this patient however I agree with the plan of care as outlined in his chart. The patient is stable to be managed as an outpatient with close follow-up which is being arranged. Return precautions were also reviewed in detail. Vital Signs: Vital signs: Vital Signs Temperature 98.1 F 11/10/21 12:45 Pulse Rate 76 11/10/21 16:52 Respiratory Rate 18 11/10/21 16:52 Blood Pressure 129/91 11/10/21 16:52 Pulse Oximetry 98 11/10/21 16:52 [facility] - General Adult Lab Data : 11/10/21 13:38 11/10/21 13:38 Radiology Impressions Chest X-Ray 11/10/21 13:21 IMPRESSION: No acute findings. Laboratory Results WBC 7.3 10^3/uL (4.0-10.0) 11/10/21 13:38 RBC 4.21 10^6/uL (4.1-5.3) 11/10/21 13:38 Hgb 12.1 g/dL (11.5-15.3) 11/10/21 13:38 Hct 39.7 % (37.0-47.0) 11/10/21 13:38 MCV 94.3 fl (81-99) 11/10/21 13:38 MCH 28.7 pg (28.0-34.0) 11/10/21 13:38 MCHC 30.5 g/dL (30.0-36.0) 11/10/21 13:38 RDW 17.3 % (12.1-15.1) H 11/10/21 13:38 Plt Count 242 10^3/cmm (130-400) 11/10/21 13:38 MPV 10.0 fL (7.4-10.4) 11/10/21 13:38 Neut % (Auto) 63.2 % 11/10/21 13:38 Lymph % (Auto) 27.3 % 11/10/21 13:38 [place] % (Auto) 7.7 % 11/10/21 13:38 Eos % (Auto) 0.5 % 11/10/21 13:38 Baso % (Auto) 1.0 % 11/10/21 13:38 Neut # (Auto) 4.62 10^3/uL (1.8-7.7) 11/10/21 13:38 Lymph # (Auto) 2.0 10^3/uL (0.8-4.8) 11/10/21 13:38 [place] # (Auto) 0.6 10^3/uL (0.2-0.9) 11/10/21 13:38 Eos # (Auto) 0.0 10^3/uL (0.0-0.8) 11/10/21 13:38 Baso # (Auto) 0.1 10^3/uL (0.0-0.1) 11/10/21 13:38 Nucleated RBC % (auto) 0 % 11/10/21 13:38 Nucleated RBCs # 0.0 /100WBC 11/10/21 13:38 Sodium 138 mmol/L (136-145) 11/10/21 13:38 Potassium 4.0 mmol/L (3.5-5.1) 11/10/21 13:38 Chloride 104 mmol/L (98-107) 11/10/21 13:38 Carbon Dioxide 22 mmol/L (22-29) 11/10/21 13:38 Anion Gap 16.0 (5-19) 11/10/21 13:38 BUN 10 mg/dL (8-23) 11/10/21 13:38 Creatinine 0.5 mg/dL (0.5-0.9) 11/10/21 13:38 GFR Calculation 124.2 mL/min (90-130) 11/10/21 13:38 Glucose 184 mg/dL (65-115) H 11/10/21 13:38 Calculated Osmolality 290 mOsm/kg (285-295) 11/10/21 13:38 Calcium 9.3 mg/dL (8.5-10.5) 11/10/21 13:38 Total Bilirubin 0.8 mg/dL (0.15-1.2) 11/10/21 13:38 AST 14 U/L (0-32) 11/10/21 13:38 ALT 12 U/L (0-33) 11/10/21 13:38 Alkaline Phosphatase 112 IU/L (35-105) H 11/10/21 13:38 Troponin T Baseline 34 ng/L (0-10) H 11/10/21 13:38 Troponin T 120 Minute 33.19 ng/L (0-10) H 11/10/21 15:39 Delta Troponin T -0.81 ABS# (0-10) L 11/10/21 15:39 NT-Pro-B Natriuret Pep 7219 pg/mL (0-125) H 11/10/21 13:38 Total Protein 6.3 g/dL (6.6-8.7) L 11/10/21 13:38 Albumin 3.9 g/dL (3.5-5.2) 11/10/21 13:38 Globulin 2.4 g/dL (1.3-4.6) 11/10/21 13:38 Urine Color Yellow (Yellow) 11/10/21 14:09 Urine Appearance Clear (CLEAR) 11/10/21 14:09 Urine pH 5 (5-7) 11/10/21 14:09 Ur Specific [place] 1.010 (1.005-1.030) 11/10/21 14:09 Urine Protein Neg (Negative) 11/10/21 14:09 Urine Glucose (UA) Norm (Normal) 11/10/21 14:09 Urine Ketones Negative (Negative) 11/10/21 14:09 Urine Blood Neg (Negative) 11/10/21 14:09 Urine Nitrate Negative (Negative) 11/10/21 14:09 Urine Bilirubin Neg (Negative) 11/10/21 14:09 Urine Urobilinogen Norm mg/dL (Negative) 11/10/21 14:09 Ur Leukocyte Esterase Negative (Negative) 11/10/21 14:09 Discharge Plan Discharge Patient Disposition: Home Clinical Impression: Bilateral edema of lower extremity Condition: Stable Prescriptions: New Lasix 40 mg tablet 40 mg PO BID Qty: 10 0RF potassium chloride 20 mEq tablet extended release 20 meq PO DAILY Qty: 10 0RF No Action magnesium 250 mg tablet 250 mg PO DAILY 0RF albuterol sulfate [ProAir HFA] 90 mcg/actuation HFA aerosol inhaler 2 puff INHALATION Q6H PRN (Reason: Shortness Of Breath) Qty: 8.5 2RF atorvastatin 40 mg tablet 40 mg PO BEDTIME@2200 Qty: 30 2RF cholecalciferol (vitamin D3) 1,250 mcg (50,000 unit) capsule 1,250 mcg PO Q14D Qty: 2 2RF Rx Instructions: take twice monthly duloxetine 60 mg capsule,delayed release(DR/EC) 60 mg PO BID@0800,2200 Qty: 60 2RF Jardiance 25 mg tablet 25 mg PO QAM Qty: 30 2RF famotidine 20 mg tablet 20 mg PO BID@0800,2200 Qty: 60 2RF ferrous gluconate 324 mg (37.5 mg iron) tablet 324 mg PO DAILY Qty: 30 2RF fluticasone propionate 50 mcg/actuation spray,suspension 2 spray INTRANASAL DAILY Qty: 16 2RF furosemide [Lasix] 20 mg tablet 40 mg PO QAM PRN (Reason: edema) Qty: 60 2RF Victoza 3-Ravin 0.6 mg/0.1 mL (18 mg/3 mL) pen injector 1.8 mg SUBCUT Q24H Qty: 9 2RF lisinopril 40 mg tablet 40 mg PO DAILY Qty: 30 2RF metformin 500 mg tablet extended release 24 hr 2,000 mg PO DAILY Qty: 120 2RF Levemir FlexTouch U-100 Insuln 100 unit/mL (3 mL) insulin pen 10 unit SUBCUT DAILY Qty: 15 0RF aspirin [Adult Low Dose Aspirin] 81 mg tablet,delayed release (DR/EC) 81 mg PO DAILY 0RF omega-3 fatty acids [Fish Oil Concentrate] 1,000 mg capsule 1,000 mg PO DAILY@0800 0RF hydrocodone-acetaminophen 10-325 mg tablet 1 tab PO Q6H PRN (Reason: Pain) 0RF vitamin B complex [B Complex-Vitamin B12] Tablet 1 tab PO DAILY@0800 0RF ascorbic acid (vitamin C) 500 mg capsule 500 mg PO DAILY 0RF multivitamin Tablet 1 tab PO DAILY Qty: 0 0RF diphenhydramine-acetaminophen [Tylenol PM Extra Strength] 25-500 mg Tablet 1 tab PO Q4H PRN (Reason: pain/sleep) 0RF estradiol 0.01 % (0.1 mg/gram) cream See Rx Instructions .ROUTE .COMPLEX PRN (Reason: dryness) 0RF Rx Instructions: 1 g vaginally PRN dry episodes Discharge Orders: Discharge ED (Routine); Ordered 11/10/21 Ordered By: mE Zepeda Referrals: Amy Morris, FILE CONVERSION OPERATOR-C [Primary Care Provider] - Activity Restrictions/Additional Instructions: We are increasing your Lasix to 40mg TWICE DAILY (total of 80mg daily) x 5 days. We are also starting you on potassium. After prescription runs out go back to your normal 40mg Lasix daily. Case management should contact you this week to set you up with a follow-up cardiology appointment for further evaluation. Hopefully you will hear from central scheduling this week for scheduling of your outpatient echocardiogram. As we discussed you need to return to the emergency department for worsening swelling, severe shortness of breath or difficulty breathing especially with lying flat or exertion, chest pains, or any other concerns you may have. Coding Level of Care Code ED Salesforce Trainer for Chg Fwd Exam Comprehensive
[2021-11-10 14:26] LABS: Alanine Aminotransferase 12 U/L (0-33); Albumin Level 3.9 g/dL (3.5-5.2); Alkaline Phosphatase 112 IU/L (35-105); Aspartate Amino Transferase 14 U/L (0-32); Blood Urea Nitrogen 10 mg/dL (8-23); Calcium 9.3 mg/dL (8.5-10.5); Carbon Dioxide 22 mmol/L (22-29); Chloride 104 mmol/L (98-107); Creatinine Clr Calc Pharmacy 151.4863; Globulin 2.4 g/dL (1.3-4.6); Glomerular Filtration Rate 124.2 mL/min (90-130); Glucose 184 mg/dL (65-115); NT Pro B Type Natriuretic Pept 7219 pg/mL (0-125); Osmolality Calculated 290 mOsm/kg (285-295); Sodium 138 mmol/L (136-145); Total Bilirubin 0.8 mg/dL (0.15-1.2); Total Protein 6.3 g/dL (6.6-8.7)
[2021-11-10 14:36] LABS: Add Urine Microscopic? NO; Charge for UA Resulting for Rev
[2021-11-10 14:43] LABS: Urine Appearance Clear (CLEAR); Urine Color Yellow (Yellow); pH Urine 5 (5-7)
[2021-11-10 14:44] LABS: Bilirubin Urine Neg (Negative); Blood Urine Neg (Negative); Glucose Urine UA Norm (Normal); Ketones Urine Negative (Negative); Leukocyte Esterase Urine Negative (Negative); Nitrate Urine Negative (Negative); Protein Urine Neg (Negative); Urobilinogen Urine Norm (Negative)
[2021-11-10] MEDS: FUROsemide 10 mg/mL SDV 10mL 80 MG IVP (14:48)
[2021-11-10] MEDS: potassium chloride ER 20 mEq Tablet 40 MEQ PO (14:48)
[2021-11-10 15:10] VITALS: BP 147/87; PULSE 91; RESP 17; O2SAT 98
[2021-11-10 15:48] LABS: Troponin(5th) Baseline 34 ng/L (0-10)
[2021-11-10 16:15] LABS: Troponin 5 2HR 33.19 ng/L (0-10)
[2021-11-10 16:25] LABS: Troponin 5 2HR Delta -0.81 ABS# (0-10)
[2021-11-10 16:52] VITALS: BP 129/91; PULSE 76; RESP 18; O2SAT 98
--- NOTE | 2021-11-10 16:52 | ECG_ITS ---
[facility] Test Date: 2021-11-10 Pat Name: Alyssa Torre Department: Room: Gender: Female [employer] Business Representative: : 1955 Requested By: Em Zepeda Order Number: [id number] Abiel MD: Josias Gold M.D. Measurements Intervals [place] Rate: 85 P: 77 OK: 174 QRS: -36 QRSD: 103 T: 101 QT: 382 QTc: 455 Interpretive Statements SINUS RHYTHM LEFT AXIS DEVIATION [QRS AXIS < -30] LOW QRS VOLTAGE IN PRECORDIAL LEADS [QRS DEFLECTION < 1.0 mV IN CHEST LEADS] ANTEROSEPTAL MYOCARDIAL INFARCTION , PROBABLY OLD [40+ ms Q WAVE IN V1-V4] Compared to ECG 06/14/2021 18:54:01 Myocardial infarct finding now present First degree AV block no longer present Electronically Signed On 11-12-2021 12:19:44 BRONC BREAKER by Josias Gold M.D. [email or web address]
--- NOTE | 2021-11-10 18:53 | W.ED.GENADLT ---
HPI - General Adult General: Chief complaint: General Medical Stated complaint: Swelling, Bloating Time Seen by Provider: 11/10/21 12:58 Source: patient Mode of arrival: ambulatory Limitations: no limitations History of Present Illness: Relieving factors: none Exacerbating factors: none PFSH ED PFSH: Medical History Allergic rhinoconjunctivitis, seasonal and perennial ASHD (arteriosclerotic heart disease) CAD (coronary artery disease) Carotid artery disease CHF (congestive heart failure) Chronic pain Chronic polyneuropathy COPD (chronic obstructive pulmonary disease) Diabetes mellitus with hyperglycemia, with long-term current use of insulin Essential hypertension Generalized osteoarthritis GERD (gastroesophageal reflux disease) Heart block High risk medication use History of carotid artery stenosis HNP (herniated nucleus pulposus), lumbar Hypertriglyceridemia Lumbar spinal stenosis Osteoarthritis PAD (peripheral artery disease) Polyneuropathy Primary generalized (osteo)arthritis Rheumatoid arthritis with negative rheumatoid factor Vitamin D deficiency Surgical History S/P angioplasty with stent 2019 right leg 2018 heart S/P carotid endarterectomy Left 2019 S/P cervical spinal fusion 2005 S/P hysterectomy S/P knee replacement Bilateral 2006 Family History Other CAD (coronary artery disease) Diabetes Social History Smoking and tobacco status: never smoked Second hand smoke exposure: No Smoking risk assessment/counseling performed?: No Alcohol intake: never Desire information about alcohol rehabilitation?: No Counseling given: No Desire information about substance/drug rehabilitation?: No Counseling given: No Caregiver/support person: No Lives independently: Yes Household members: spouse Marital status: Number of children: 3 Highest education level completed: 10th Grade service: No Current occupational status: disabled Pets and animals: Yes History of recent travel: No Current gender identity: Female Course Vital Signs: Vital signs: Vital Signs Temperature 98.1 F 11/10/21 12:45 Pulse Rate 76 11/10/21 16:52 Respiratory Rate 18 11/10/21 16:52 Blood Pressure 129/91 11/10/21 16:52 Pulse Oximetry 98 11/10/21 16:52 [facility] - General Adult Lab Data : 11/10/21 13:38 11/10/21 13:38 Radiology Impressions Chest X-Ray 11/10/21 13:21 IMPRESSION: No acute findings. Laboratory Results WBC 7.3 10^3/uL (4.0-10.0) 11/10/21 13:38 RBC 4.21 10^6/uL (4.1-5.3) 11/10/21 13:38 Hgb 12.1 g/dL (11.5-15.3) 11/10/21 13:38 Hct 39.7 % (37.0-47.0) 11/10/21 13:38 MCV 94.3 fl (81-99) 11/10/21 13:38 MCH 28.7 pg (28.0-34.0) 11/10/21 13:38 MCHC 30.5 g/dL (30.0-36.0) 11/10/21 13:38 RDW 17.3 % (12.1-15.1) H 11/10/21 13:38 Plt Count 242 10^3/cmm (130-400) 11/10/21 13:38 MPV 10.0 fL (7.4-10.4) 11/10/21 13:38 Neut % (Auto) 63.2 % 11/10/21 13:38 Lymph % (Auto) 27.3 % 11/10/21 13:38 [place] % (Auto) 7.7 % 11/10/21 13:38 Eos % (Auto) 0.5 % 11/10/21 13:38 Baso % (Auto) 1.0 % 11/10/21 13:38 Neut # (Auto) 4.62 10^3/uL (1.8-7.7) 11/10/21 13:38 Lymph # (Auto) 2.0 10^3/uL (0.8-4.8) 11/10/21 13:38 [place] # (Auto) 0.6 10^3/uL (0.2-0.9) 11/10/21 13:38 Eos # (Auto) 0.0 10^3/uL (0.0-0.8) 11/10/21 13:38 Baso # (Auto) 0.1 10^3/uL (0.0-0.1) 11/10/21 13:38 Nucleated RBC % (auto) 0 % 11/10/21 13:38 Nucleated RBCs # 0.0 /100WBC 11/10/21 13:38 Sodium 138 mmol/L (136-145) 11/10/21 13:38 Potassium 4.0 mmol/L (3.5-5.1) 11/10/21 13:38 Chloride 104 mmol/L (98-107) 11/10/21 13:38 Carbon Dioxide 22 mmol/L (22-29) 11/10/21 13:38 Anion Gap 16.0 (5-19) 11/10/21 13:38 BUN 10 mg/dL (8-23) 11/10/21 13:38 Creatinine 0.5 mg/dL (0.5-0.9) 11/10/21 13:38 GFR Calculation 124.2 mL/min (90-130) 11/10/21 13:38 Glucose 184 mg/dL (65-115) H 11/10/21 13:38 Calculated Osmolality 290 mOsm/kg (285-295) 11/10/21 13:38 Calcium 9.3 mg/dL (8.5-10.5) 11/10/21 13:38 Total Bilirubin 0.8 mg/dL (0.15-1.2) 11/10/21 13:38 AST 14 U/L (0-32) 11/10/21 13:38 ALT 12 U/L (0-33) 11/10/21 13:38 Alkaline Phosphatase 112 IU/L (35-105) H 11/10/21 13:38 Troponin T Baseline 34 ng/L (0-10) H 11/10/21 13:38 Troponin T 120 Minute 33.19 ng/L (0-10) H 11/10/21 15:39 Delta Troponin T -0.81 ABS# (0-10) L 11/10/21 15:39 NT-Pro-B Natriuret Pep 7219 pg/mL (0-125) H 11/10/21 13:38 Total Protein 6.3 g/dL (6.6-8.7) L 11/10/21 13:38 Albumin 3.9 g/dL (3.5-5.2) 11/10/21 13:38 Globulin 2.4 g/dL (1.3-4.6) 11/10/21 13:38 Urine Color Yellow (Yellow) 11/10/21 14:09 Urine Appearance Clear (CLEAR) 11/10/21 14:09 Urine pH 5 (5-7) 11/10/21 14:09 Ur Specific [place] 1.010 (1.005-1.030) 11/10/21 14:09 Urine Protein Neg (Negative) 11/10/21 14:09 Urine Glucose (UA) Norm (Normal) 11/10/21 14:09 Urine Ketones Negative (Negative) 11/10/21 14:09 Urine Blood Neg (Negative) 11/10/21 14:09 Urine Nitrate Negative (Negative) 11/10/21 14:09 Urine Bilirubin Neg (Negative) 11/10/21 14:09 Urine Urobilinogen Norm mg/dL (Negative) 11/10/21 14:09 Ur Leukocyte Esterase Negative (Negative) 11/10/21 14:09 Discharge Plan Discharge Patient Disposition: Home Clinical Impression: Bilateral edema of lower extremity Condition: Stable Prescriptions: No Action magnesium 250 mg tablet 250 mg PO DAILY 0RF albuterol sulfate [ProAir HFA] 90 mcg/actuation HFA aerosol inhaler 2 puff INHALATION Q6H PRN (Reason: Shortness Of Breath) Qty: 8.5 2RF atorvastatin 40 mg tablet 40 mg PO BEDTIME@2200 Qty: 30 2RF cholecalciferol (vitamin D3) 1,250 mcg (50,000 unit) capsule 1,250 mcg PO Q14D Qty: 2 2RF Rx Instructions: take twice monthly duloxetine 60 mg capsule,delayed release(DR/EC) 60 mg PO BID@0800,2200 Qty: 60 2RF Jardiance 25 mg tablet 25 mg PO QAM Qty: 30 2RF famotidine 20 mg tablet 20 mg PO BID@0800,2200 Qty: 60 2RF ferrous gluconate 324 mg (37.5 mg iron) tablet 324 mg PO DAILY Qty: 30 2RF fluticasone propionate 50 mcg/actuation spray,suspension 2 spray INTRANASAL DAILY Qty: 16 2RF Victoza 3-Ravin 0.6 mg/0.1 mL (18 mg/3 mL) pen injector 1.8 mg SUBCUT Q24H Qty: 9 2RF lisinopril 40 mg tablet 40 mg PO DAILY Qty: 30 2RF metformin 500 mg tablet extended release 24 hr 2,000 mg PO DAILY Qty: 120 2RF Levemir FlexTouch U-100 Insuln 100 unit/mL (3 mL) insulin pen 10 unit SUBCUT DAILY Qty: 15 0RF Lasix 40 mg tablet 40 mg PO BID Qty: 180 3RF potassium chloride 20 mEq tablet extended release 20 meq PO DAILY Qty: 90 3RF aspirin [Adult Low Dose Aspirin] 81 mg tablet,delayed release (DR/EC) 81 mg PO DAILY 0RF omega-3 fatty acids [Fish Oil Concentrate] 1,000 mg capsule 1,000 mg PO DAILY@0800 0RF hydrocodone-acetaminophen 10-325 mg tablet 1 tab PO Q6H PRN (Reason: Pain) 0RF vitamin B complex [B Complex-Vitamin B12] Tablet 1 tab PO DAILY@0800 0RF ascorbic acid (vitamin C) 500 mg capsule 500 mg PO DAILY 0RF multivitamin Tablet 1 tab PO DAILY Qty: 0 0RF diphenhydramine-acetaminophen [Tylenol PM Extra Strength] 25-500 mg Tablet 1 tab PO Q4H PRN (Reason: pain/sleep) 0RF estradiol 0.01 % (0.1 mg/gram) cream See Rx Instructions .ROUTE .COMPLEX PRN (Reason: dryness) 0RF Rx Instructions: 1 g vaginally PRN dry episodes Discharge Orders: Discharge ED (Routine); Ordered 11/10/21 Ordered By: Em Zepeda Referrals: Amy Morris, IP L[facility] [Primary Care Provider] - Activity Restrictions/Additional Instructions: We are increasing your Lasix to 40mg TWICE DAILY (total of 80mg daily) x 5 days. We are also starting you on potassium. After prescription runs out go back to your normal 40mg Lasix daily. Case management should contact you this week to set you up with a follow-up cardiology appointment for further evaluation. Hopefully you will hear from central scheduling this week for scheduling of your outpatient echocardiogram. As we discussed you need to return to the emergency department for worsening swelling, severe shortness of breath or difficulty breathing especially with lying flat or exertion, chest pains, or any other concerns you may have. Coding Level of Care Code ED Outsole Skiver for Poonam Chance
--- NOTE | 2021-11-12 13:24 | DCPLANNER ---
Addendum entered by Caitlin Estrada 12/20/21 07:48: Patient had a follow up appointment scheduled for 11.20.21 with Elizabet Roberts at [facility] - patient did attend appointment. Addendum entered by Caitlin Estrada 11/12/21 14:31: site acquisition manager informed patient of the scheduled appointment. Original Note: site acquisition manager had message to schedule a follow up appointment for [facility] with [facility]. site acquisition manager called [facility], spoke with Tara, gave clinic patients information. A follow up appointment was scheduled for Saturday, November 20, 2021 at 12:45 with Elizabet Roberts. site acquisition manager called phone number [phone], unable to speak with patient at this time. A voicemail was left for patient with the appointment information.
== END 2021-11-10 16:55 | disposition home or self-care (01) ==
PROVIDERS: Emergency Provider Physician Assistant; PCP Nurse Practitioner
DX: R60.0 Localized edema (principal); I12.9 Hypertensive chronic kidney disease with stage 1 through stage 4 chronic kidney disease, or unspecified chronic kidney disease; E11.22 Type 2 diabetes mellitus with diabetic chronic kidney disease; N18.9 Chronic kidney disease, unspecified; Z87.891 Personal history of nicotine dependence; I25.10 Atherosclerotic heart disease of native coronary artery without angina pectoris; Z95.5 Presence of coronary angioplasty implant and graft; E78.5 Hyperlipidemia, unspecified; I10 Essential (primary) hypertension; E66.01 Morbid (severe) obesity due to excess calories; Z68.43 Body mass index [BMI] 50.0-59.9, adult; J44.9 Chronic obstructive pulmonary disease, unspecified; E11.42 Type 2 diabetes mellitus with diabetic polyneuropathy; E11.51 Type 2 diabetes mellitus with diabetic peripheral angiopathy without gangrene; E78.1 Pure hyperglyceridemia; M06.00 Rheumatoid arthritis without rheumatoid factor, unspecified site; Z79.4 Long term (current) use of insulin; Z79.84 Long term (current) use of oral hypoglycemic drugs
CPT/HCPCS: 71045; 80053; 81003; 83880; 84484; 85025; 93005; 96374; 99283; J1940

== ENCOUNTER → 2021-11-13 10:02 | Outpatient (BNVA) | payer MEDICARE, SELFPAY | PROVIDERS: PCP Nurse Practitioner; Visit Provider Nurse Practitioner | DX: I50.9 Heart failure, unspecified (principal) | CPT/HCPCS: 80048 ==

== ENCOUNTER → 2021-11-20 12:50 | Outpatient (BNVA) | payer MEDICARE, SELFPAY | PROVIDERS: PCP Nurse Practitioner; Visit Provider Nurse Practitioner Family | DX: I50.9 Heart failure, unspecified (principal); I25.10 Atherosclerotic heart disease of native coronary artery without angina pectoris; I73.9 Peripheral vascular disease, unspecified | CPT/HCPCS: 80048; 83880; 99214 ==

== ENCOUNTER 2021-11-21 13:35 | Outpatient (CLI) | payer MEDICARE, SELFPAY ==
--- NOTE | 2021-11-21 14:30 | MM_ITS ---
WS: [id number] BILATERAL SCREENING DIGITAL MAMMOGRAM WITH CAD HISTORY: Z12.39 - Encounter for other screening for malignant neoplasm. COMPARISON: 08/10/2014 and 08/02/2013 Bilateral CC and MLO views submitted. Computer aided detection analyzed. Breast composition: There are scattered areas of fibroglandular density. No suspicious masses, microc alcifications or architectural distortion. Coarse calcifications bilaterally. No developing mass. The re is mild diffuse thickening of the trabecular pattern which was not present on the prior study. Lisandro ateral and diffuse. Correlate for possible congestive failure and soft tissue edema. MM/[place] [id number] IMPRESSION: BI-RADS: 2-Benign FOLLOW UP: 1 Year Follow-up
== END 2021-11-21 13:36 | disposition home or self-care (01) ==
PROVIDERS: PCP Nurse Practitioner; Visit Provider Nurse Practitioner
DX: Z12.31 Encounter for screening mammogram for malignant neoplasm of breast (principal)
CPT/HCPCS: 77067

== ENCOUNTER 2021-11-28 09:16 | Outpatient (CLI) | payer MEDICARE, SELFPAY ==
--- NOTE | 2021-11-28 09:32 | USCV_ITS ---
Nicho Alyssa Age: 66 Gender: F : 1955 Exam Date: 11/28/2021 09:46 Ordering Phys: Amy Morris Technologist: Exam Location: [place] Indication: Congestive Heart Failure BP: 140 / 80 HR: Rhythm: Sinus Technical Quality: Adequate MEASUREMENTS (Male / Female) Normal Values 2D ECHO LV Diastolic Diameter PLAX 6.2 cm 4.2 - 5.9 / 3.9 - 5.3 cm LV Systolic Diameter PLAX 5.0 cm IVS Diastolic Thickness 1.1 cm 0.6 - 1.0 / 0.6 - 0.9 cm IVS Systolic Thickness 1.6 cm LVPW Diastolic Thickness 1.5 cm 0.6 - 1.0 / 0.6 - 0.9 cm LVPW Systolic Thickness 1.2 cm LVOT Diameter 2.1 cm LV Ejection Fraction 2D Teich 19.5 % LV Ejection Fraction MOD 2C 41.3 % LV Ejection Fraction 2C AL 41.8 % LA Diameter 4.8 cm Aorta at Sinotubular Diameter 2.7 cm M-MODE Aortic Annulus Diameter 3.4 cm LA Ao Ratio MM 1.4 MV E Point Septal Separation 2.5 cm DOPPLER AV Peak Velocity 108.0 cm/s LVOT Peak Velocity 84.0 cm/s AV Area Cont Eq vti 2.4 cm squared AV Area Cont Eq pk 2.7 cm squared MV Area PHT 5.0 cm squared Mitral E to A Ratio 1.8 MV E' Velocity 47.0 cm/s Mitral E to MV E' Ratio 13.4 Mitral E to LV E' Lateral Ratio 11.3 Mitral E to LV E' Septal Ratio 16.8 TR Peak Velocity 290.3 cm/s TR Peak Gradient 33.7 mmHg TV Peak E Velocity 114.0 cm/s Right Atrial Pressure 3.0 mmHg Pulmonary Artery Systolic Pressu 36.7 mmHg FINDINGS Left Ventricle Mildly increased left ventricular cavity size. Moderately decreased left ventricular systolic function. Left ventricular ejection fraction is estimated at 30 %. Global left ventricular hypokinesis. Grade II diastolic dysfunction, moderately elevated filling pressures. Right Ventricle Upper normal right ventricular size and low normal systolic function. Right ventricular systolic pressure 40 mmHg. Right Atrium Moderately increased right atrial size. Left Atrium Moderately increased left atrial size. Mitral Valve Mild mitral annular calcification. Thickened mitral valve. No mitral valve stenosis. Mild mitral valve regurgitation. Aortic Valve Structurally normal trileaflet aortic valve. No aortic valve stenosis. No aortic valve regurgitation. Tricuspid Valve Structurally normal tricuspid valve. No tricuspid valve stenosis. Moderate tricuspid valve regurgitation. Pulmonic Valve Structurally normal pulmonic valve. No pulmonary valve stenosis. Trace pulmonary valve regurgitation. Pericardium No pericardial effusion. Aorta Normal size aortic root and proximal ascending aorta. CONCLUSIONS 1. Mildly increased left ventricular cavity size. Moderately decreased left ventricular systolic function. Left ventricular ejection fraction is estimated at 30 %. Global left ventricular hypokinesis. Grade II diastolic dysfunction, moderately elevated filling pressures. 2. Upper normal right ventricular size and low normal systolic function. 3. Moderate biatrial enlargement. 4. Moderate tricuspid valve regurgitation. 5. Mild mitral valve regurgitation. 6. No prior similar studies to compare. Mandie Farmer MD (Electronically Signed) Final Date: 03 December 2021 10:16 S
== END 2021-11-28 09:17 | disposition home or self-care (01) ==
PROVIDERS: PCP Nurse Practitioner; Visit Provider Nurse Practitioner
DX: I49.9 Cardiac arrhythmia, unspecified (principal); I50.9 Heart failure, unspecified; I08.1 Rheumatic disorders of both mitral and tricuspid valves
CPT/HCPCS: 93306

== ENCOUNTER → 2021-12-03 08:40 | Outpatient (BNVA) | payer MEDICARE, SELFPAY | PROVIDERS: PCP Nurse Practitioner; Visit Provider Nurse Practitioner Family | DX: I50.9 Heart failure, unspecified (principal); I25.10 Atherosclerotic heart disease of native coronary artery without angina pectoris | CPT/HCPCS: 80048; 99214 ==

== ENCOUNTER → 2021-12-31 08:14 | Outpatient (BNVA) | payer MEDICARE, SELFPAY | PROVIDERS: PCP Nurse Practitioner; Visit Provider Nurse Practitioner | DX: E11.65 Type 2 diabetes mellitus with hyperglycemia (principal); Z79.4 Long term (current) use of insulin; I50.9 Heart failure, unspecified; E61.1 Iron deficiency; I10 Essential (primary) hypertension | CPT/HCPCS: 80053; 83036; 83540; 83880; 85025 ==

== ENCOUNTER → 2022-01-02 12:25 | Outpatient (BNVA) | payer MEDICARE, SELFPAY | PROVIDERS: PCP Nurse Practitioner; Visit Provider Nurse Practitioner | DX: E11.65 Type 2 diabetes mellitus with hyperglycemia (principal); Z79.4 Long term (current) use of insulin; E55.9 Vitamin D deficiency, unspecified; G62.9 Polyneuropathy, unspecified; K21.9 Gastro-esophageal reflux disease without esophagitis; J30.2 Other seasonal allergic rhinitis; H10.10 Acute atopic conjunctivitis, unspecified eye; J30.89 Other allergic rhinitis; I50.9 Heart failure, unspecified; I10 Essential (primary) hypertension | CPT/HCPCS: 81000 ==

== ENCOUNTER → 2022-02-19 11:28 | Outpatient (BNVA) | payer MEDICARE, SELFPAY | PROVIDERS: PCP Nurse Practitioner; Referring Provider Nurse Practitioner; Visit Provider Surgery | DX: R19.5 Other fecal abnormalities (principal); E61.1 Iron deficiency; R00.2 Palpitations; I25.10 Atherosclerotic heart disease of native coronary artery without angina pectoris; I11.0 Hypertensive heart disease with heart failure; I50.9 Heart failure, unspecified; I73.9 Peripheral vascular disease, unspecified; I45.9 Conduction disorder, unspecified; Z87.891 Personal history of nicotine dependence; R00.1 Bradycardia, unspecified; R00.0 Tachycardia, unspecified | CPT/HCPCS: 80048; 93229; 99204; 99214 ==

== ENCOUNTER → 2022-03-28 08:24 | Outpatient (BNVA) | payer MEDICARE, SELFPAY | PROVIDERS: PCP Nurse Practitioner; Visit Provider Nurse Practitioner | DX: E11.65 Type 2 diabetes mellitus with hyperglycemia (principal); Z79.4 Long term (current) use of insulin; E61.1 Iron deficiency; J44.9 Chronic obstructive pulmonary disease, unspecified | CPT/HCPCS: 80053; 80061; 82607; 83036; 85025 ==

== ENCOUNTER → 2022-04-01 11:59 | Outpatient (BNVA) | payer MEDICARE, SELFPAY | PROVIDERS: PCP Nurse Practitioner; Visit Provider Nurse Practitioner | DX: E11.65 Type 2 diabetes mellitus with hyperglycemia (principal); Z79.4 Long term (current) use of insulin; E55.9 Vitamin D deficiency, unspecified; G62.9 Polyneuropathy, unspecified; K21.9 Gastro-esophageal reflux disease without esophagitis; J30.2 Other seasonal allergic rhinitis; H10.10 Acute atopic conjunctivitis, unspecified eye; J30.89 Other allergic rhinitis; I50.9 Heart failure, unspecified; I10 Essential (primary) hypertension; I50.32 Chronic diastolic (congestive) heart failure; J43.8 Other emphysema; E61.1 Iron deficiency | CPT/HCPCS: 81000; 83880; 84550 ==

== ENCOUNTER → 2022-04-03 15:00 | Outpatient (BNVA) | payer MEDICARE, SELFPAY | PROVIDERS: PCP Nurse Practitioner; Visit Provider Nurse Practitioner | DX: M54.2 Cervicalgia (principal); M25.511 Pain in right shoulder | CPT/HCPCS: 72040; 73030 ==

== ENCOUNTER 2022-04-12 07:18 | Day surgery (SDC) | payer MEDICARE, SELFPAY ==
[2022-04-10 13:12] VITALS: BMI 40.7
[2022-04-12 08:01] VITALS: PULSE 63; RESP 18; TEMP 36.1; O2SAT 94
--- NOTE | 2022-04-12 08:02 | ANES.PREANE2 ---
Pre-Anesthetic Assessment Height/Weight: Height 1.6 m Weight 104.326 kg Preop Diagnosis: diagnostic Operation Date: 04/12/22 08:30 Proposed Procedures p [id number] EGD [id number] colonoscopy R19.5(Not Applicable) - Ben Timmons MD s Colonoscopy(Not Applicable) - Ben Timmons MD Familial anesthetic complications: none Was Beta Chaparrita taken within 24 hours: N/A Was Clonidine taken within 24 hours: N/A Last intake: 2300, sip this AM with meds Social No alcohol and No tobacco Exam alert and oriented x 3 Airway Submandibular: within normal limits Cervical ROM: within normal limits Dentition: false History/ROS No significant history except as noted CV/HEM Coronary Artery Disease (3 stents in heart), Hypertension and Peripheral Vascular Disease (1 stent in groin) None reported Hepatic None reported GI Gastroesophageal Reflux Disease Metabolic Diabetes Mellitus, Hyperlipidemia, Morbid Obesity and Thyroid Disease (pt reports left side growth- just monitoring it) Musc/skel Osteoarthritis/DJD spinal stenosis lower back, plate in neck Neuropsych None reported Anesthetic Plan ASA status: 3 Anesthesia: Anesthesia Evaluation and MAC Medications/Allergies Home Medications Medication Instructions Recorded Confirmed Last Taken Type ascorbic acid (vitamin C) 500 mg 500 mg PO DAILY cap 10/05/19 04/10/22 04/11/22 History capsule aspirin 81 mg tablet,delayed 81 mg PO DAILY tab 10/05/19 04/10/22 04/08/22 History release (Adult Low Dose Aspirin) hydrocodone 10 mg-acetaminophen 1 tab PO Q6H PRN 10/05/19 04/10/22 04/12/22 06:00 History 325 mg tablet omega-3 fatty acids 1,000 mg 1,000 mg PO DAILY@0800 cap 10/05/19 04/10/22 04/08/22 History capsule (Fish Oil Concentrate) vitamin B complex (B 1 tab PO DAILY@0800 10/05/19 04/12/22 11/09/21 History Complex-Vitamin B12) diphenhydramine 25 1 tab PO Q4H PRN 02/10/21 04/10/22 04/11/22 History mg-acetaminophen 500 mg tablet (Tylenol PM Extra Strength) multivitamin 1 tab PO DAILY #0 02/10/21 04/10/22 04/11/22 History magnesium 250 mg tablet 250 mg PO DAILY 06/25/21 04/10/22 04/11/22 History furosemide 40 mg tablet (Lasix) 40 mg PO BID #180 tab 11/20/21 04/10/22 04/11/22 Rx potassium chloride 20 mEq 20 meq PO DAILY #90 tab 11/20/21 04/10/22 04/11/22 Rx tablet,extended release pen needle, diabetic 33 gauge x #100 ea 01/02/22 04/01/22 Unknown Rx /32 diclofenac sodium 1 % topical gel 2 g TOPICAL .two time day PRN #100 03/22/22 04/10/22 04/11/22 Rx g albuterol sulfate 90 mcg/actuation 2 puff INHALATION Q6H PRN #8.5 g 04/01/22 04/10/22 Unknown Rx aerosol inhaler (ProAir HFA) atorvastatin 40 mg tablet 40 mg PO BEDTIME@2200 #30 tab 04/01/22 04/10/22 04/11/22 Rx cholecalciferol (vitamin D3) 1,250 1,250 mcg PO Q14D #2 cap 04/01/22 04/10/22 Unknown Rx mcg (50,000 unit) capsule duloxetine 60 mg capsule,delayed 60 mg PO BID@0800,2200 #60 cap 04/01/22 04/10/22 04/11/22 Rx release famotidine 20 mg tablet 20 mg PO BID@0800,2200 #60 tab 04/01/22 04/10/22 04/11/22 Rx ferrous gluconate 324 mg (37.5 mg 324 mg PO DAILY #30 tab 04/01/22 04/10/22 04/11/22 Rx iron) tablet fluticasone propionate 50 2 spray INTRANASAL DAILY #16 g 04/01/22 04/10/22 04/11/22 Rx mcg/actuation nasal spray,suspension insulin detemir U-100 100 unit/mL 30 unit (0.3 mL) SUBCUT DAILY #15 04/01/22 04/12/22 04/11/22 Rx (3 mL) subcutaneous pen (Levemir ml FlexTouch U-100 Insulin) liraglutide 0.6 mg/0.1 mL (18 mg/3 1.8 mg (0.3 mL) SUBCUT Q24H #9 ml 07/11/22 07/22/22 07/21/22 Rx mL) subcutaneous pen injector (Victoza 3-Ravin) metformin 500 mg tablet,extended 2,000 mg PO DAILY #120 tab 04/01/22 04/12/22 04/10/22 Rx release 24 hr sacubitril 49 mg-valsartan 51 mg 1 tab PO BID #60 tab 04/01/22 04/10/22 04/11/22 Rx tablet (Entresto) allopurinol 300 mg tablet 300 mg PO DAILY #90 tab 04/05/22 04/10/22 04/11/22 Rx Allergies Allergy/AdvReac Type Severity Reaction Status Date / Time pregabalin [From Lyrica] Allergy Unknown increased Verified 04/11/22 13:04 muscle pain PFS Anesthesia Medical History Allergic rhinoconjunctivitis, seasonal and perennial ASHD (arteriosclerotic heart disease) CAD (coronary artery disease) Carotid artery disease CHF (congestive heart failure) Chronic pain Chronic polyneuropathy COPD (chronic obstructive pulmonary disease) Diabetes mellitus with hyperglycemia, with long-term current use of insulin Essential hypertension Generalized osteoarthritis GERD (gastroesophageal reflux disease) Heart block High risk medication use History of carotid artery stenosis HNP (herniated nucleus pulposus), lumbar Hypertriglyceridemia Lumbar spinal stenosis Osteoarthritis PAD (peripheral artery disease) Polyneuropathy Primary generalized (osteo)arthritis Rheumatoid arthritis with negative rheumatoid factor Vitamin D deficiency Surgical History History of ankle surgery History of bilateral carpal tunnel release History of colonoscopy S/P angioplasty with stent 2019 right leg 2018 heart S/P carotid endarterectomy Left 2019 S/P cervical spinal fusion 2005 S/P hysterectomy S/P knee replacement Bilateral 2006 Family History Other CAD (coronary artery disease) Diabetes Social History Smoking and tobacco status: never smoked Second hand smoke exposure: No Smoking risk assessment/counseling performed?: No Alcohol intake: never Desire information about alcohol rehabilitation?: No Counseling given: No Desire information about substance/drug rehabilitation?: No Counseling given: No Caregiver/support person: No Lives independently: Yes Household members: spouse Marital status: Number of children: 3 Highest education level completed: 10th Grade service: No Current occupational status: disabled Pets and animals: Yes History of recent travel: No Current gender identity: Female Data Anesthesia Cardiac Studies: Echocardiogram 11/28/21 Cardiac Event Monitor 02/21/22
--- NOTE | 2022-04-12 08:06 | W.PM.OPSFHP ---
Same Day Surgery H&P Indication for Procedure/HPI DATE OF PROCEDURE: April 12, 2022 CHIEF COMPLAINT/INDICATIONFOR SURGICAL PROCEDURE: egd/colon for anemia PREOP DIAGNOSIS: diagnostic PLANNED PROCEDURE: Operation Date: 04/12/22 08:30 Proposed Procedures p [id number] EGD 58557 colonoscopy R19.5(Not Applicable) - Ben Timmons MD s Colonoscopy(Not Applicable) - Ben Timmons MD Medications/Allergies* Home Medications Medication Instructions Recorded Confirmed Type ascorbic acid (vitamin C) 500 mg 500 mg PO DAILY cap 10/05/19 04/10/22 History capsule aspirin 81 mg tablet,delayed 81 mg PO DAILY tab 10/05/19 04/10/22 History release (Adult Low Dose Aspirin) hydrocodone 10 mg-acetaminophen 1 tab PO Q6H PRN 10/05/19 04/10/22 History 325 mg tablet omega-3 fatty acids 1,000 mg 1,000 mg PO DAILY@0800 cap 10/05/19 04/10/22 History capsule (Fish Oil Concentrate) vitamin B complex (B 1 tab PO DAILY@0800 10/05/19 04/12/22 History Complex-Vitamin B12) diphenhydramine 25 1 tab PO Q4H PRN 02/10/21 04/10/22 History mg-acetaminophen 500 mg tablet (Tylenol PM Extra Strength) multivitamin 1 tab PO DAILY #0 02/10/21 04/10/22 History magnesium 250 mg tablet 250 mg PO DAILY 06/25/21 04/10/22 History Allergies/Adverse Reactions Allergy/AdvReac Type Severity Reaction Status Date / Time pregabalin [From Lyrica] Allergy Unknown increased Verified 04/11/22 13:04 muscle pain Pertinent History/Comorbid Conditions* Medical History (Updated 04/05/22 @ 13:12 by CHRISTOFER Steele-C) Allergic rhinoconjunctivitis, seasonal and perennial ASHD (arteriosclerotic heart disease) CAD (coronary artery disease) Carotid artery disease CHF (congestive heart failure) Chronic pain Chronic polyneuropathy COPD (chronic obstructive pulmonary disease) Diabetes mellitus with hyperglycemia, with long-term current use of insulin Essential hypertension Generalized osteoarthritis GERD (gastroesophageal reflux disease) Heart block High risk medication use History of carotid artery stenosis HNP (herniated nucleus pulposus), lumbar Hypertriglyceridemia Lumbar spinal stenosis Osteoarthritis PAD (peripheral artery disease) Polyneuropathy Primary generalized (osteo)arthritis Rheumatoid arthritis with negative rheumatoid factor Vitamin D deficiency Surgical History (Updated 02/19/22 @ 14:02 by Ben Timmons MD) History of ankle surgery History of bilateral carpal tunnel release History of colonoscopy S/P angioplasty with stent 2019 right leg 2018 heart S/P carotid endarterectomy Left 2019 S/P cervical spinal fusion 2005 S/P hysterectomy S/P knee replacement Bilateral 2006 Family History (Updated 11/06/19 @ 15:39 by MERRY SteeleP-C) Diabetes CAD (coronary artery disease) Social History Smoking and tobacco status: never smoked Second hand smoke exposure: No Smoking risk assessment/counseling performed?: No Alcohol intake: never Desire information about alcohol rehabilitation?: No Counseling given: No Desire information about substance/drug rehabilitation?: No Counseling given: No Caregiver/support person: No Lives independently: Yes Household members: spouse Marital status: Number of children: 3 Highest education level completed: 10th Grade service: No Current occupational status: disabled Pets and animals: Yes History of recent travel: No Current gender identity: Female Pertinent Exam Findings alert, oriented x 3 and regular rate & rhythm Recommendations Surgery/Procedure today Coding Level of Care Code Acute Oil Plant Operator for Poonam Chance
[2022-04-12] MEDS: sodium chloride 0.9% 1,000 ML 30 ML IV (08:07)
[2022-04-12 09:26] VITALS: BP 122/76; PULSE 56; RESP 16; TEMP 36.1; O2SAT 92
[2022-04-12 09:35] VITALS: BP 120/65; PULSE 61; RESP 18; O2SAT 95
--- NOTE | 2022-04-12 12:18 | ANE.PACU2 ---
Inpatient post-anesthesia follow up: Airway intact: Yes Vital signs: Temperature 97.0 F Pulse Rate 61 Respiratory Rate 18 Blood Pressure 120/65 Pulse Oximetry 95 Oxygen Delivery Me thod Room Air Oxygen Flow Rate Fraction of Inspir ed Oxygen Hydration adequate: Yes Nausea and vomiting: No Pain level: 1 Mental status: Baseline
== END 2022-04-12 09:55 | disposition home or self-care (01) ==
PROVIDERS: PCP Nurse Practitioner; Visit Provider Surgery
PROC: 0DJD8ZZ Inspection of Lower Intestinal Tract, Via Natural or Artificial Opening Endoscopic (ICD-10-PCS; CPT 45378; 2022-04-12 08:30)
PROC: 0DJ08ZZ Inspection of Upper Intestinal Tract, Via Natural or Artificial Opening Endoscopic (ICD-10-PCS; CPT 43235; 2022-04-12 08:30)
DX: R19.5 Other fecal abnormalities (principal); D12.8 Benign neoplasm of rectum; K57.30 Diverticulosis of large intestine without perforation or abscess without bleeding; K29.70 Gastritis, unspecified, without bleeding; I25.10 Atherosclerotic heart disease of native coronary artery without angina pectoris; Z95.5 Presence of coronary angioplasty implant and graft; I10 Essential (primary) hypertension; I73.9 Peripheral vascular disease, unspecified; K21.9 Gastro-esophageal reflux disease without esophagitis; E78.5 Hyperlipidemia, unspecified; E66.01 Morbid (severe) obesity due to excess calories; Z68.41 Body mass index [BMI] 40.0-44.9, adult; Z79.82 Long term (current) use of aspirin; I50.9 Heart failure, unspecified; J44.9 Chronic obstructive pulmonary disease, unspecified; E11.65 Type 2 diabetes mellitus with hyperglycemia; M19.90 Unspecified osteoarthritis, unspecified site; E11.42 Type 2 diabetes mellitus with diabetic polyneuropathy; M06.9 Rheumatoid arthritis, unspecified; E55.9 Vitamin D deficiency, unspecified
CPT/HCPCS: 43235; 45385; 88305; J2704; J7030

== ENCOUNTER → 2022-04-18 09:53 | Outpatient (BNVA) | payer MEDICARE, SELFPAY | PROVIDERS: PCP Nurse Practitioner; Referring Provider Nurse Practitioner; Visit Provider Orthopaedic Surgery | DX: M47.892 Other spondylosis, cervical region (principal); Z98.1 Arthrodesis status | CPT/HCPCS: 72040; 99204 ==

== ENCOUNTER → 2022-06-24 09:16 | Outpatient (BNVA) | payer MEDICARE, SELFPAY | PROVIDERS: PCP Nurse Practitioner; Visit Provider Nurse Practitioner | DX: E79.0 Hyperuricemia without signs of inflammatory arthritis and tophaceous disease (principal); E11.65 Type 2 diabetes mellitus with hyperglycemia; E55.9 Vitamin D deficiency, unspecified; M15.0 Primary generalized (osteo)arthritis; G62.9 Polyneuropathy, unspecified; K21.9 Gastro-esophageal reflux disease without esophagitis; E61.1 Iron deficiency; J30.2 Other seasonal allergic rhinitis; H10.10 Acute atopic conjunctivitis, unspecified eye; J30.89 Other allergic rhinitis; Z79.4 Long term (current) use of insulin; I10 Essential (primary) hypertension; I50.9 Heart failure, unspecified; M10.9 Gout, unspecified; Z23 Encounter for immunization | CPT/HCPCS: 80053; 82306; 82607; 83036; 83540; 84550 ==

== ENCOUNTER → 2022-08-27 14:38 | Outpatient (BNVA) | payer MEDICARE, SELFPAY | PROVIDERS: PCP Nurse Practitioner; Visit Provider Internal Medicine | DX: I25.10 Atherosclerotic heart disease of native coronary artery without angina pectoris (principal); Z95.5 Presence of coronary angioplasty implant and graft; I73.9 Peripheral vascular disease, unspecified; I45.9 Conduction disorder, unspecified; I11.0 Hypertensive heart disease with heart failure; I50.9 Heart failure, unspecified | CPT/HCPCS: 99214 ==

== ENCOUNTER → 2022-09-04 08:08 | Outpatient (BNVA) | payer MEDICARE, SELFPAY | PROVIDERS: PCP Nurse Practitioner; Visit Provider Nurse Practitioner | DX: E11.65 Type 2 diabetes mellitus with hyperglycemia (principal); E55.9 Vitamin D deficiency, unspecified; I10 Essential (primary) hypertension; Z79.4 Long term (current) use of insulin; Z79.899 Other long term (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 therapy | CPT/HCPCS: 80053; 80061; 82306; 83036 ==

== ENCOUNTER 2022-09-12 05:46 | Outpatient (CLI) | payer MEDICARE, SELFPAY ==
[2022-09-12] VITALS (42 sets, daily range): BP systolic 97–161; BP diastolic 51–101; PULSE 59–82; RESP 14–28; TEMP 36.5–36.6; O2SAT 90–100; BMI 43.4
--- NOTE | 2022-09-12 06:00 | XACV_ITS ---
Exam Room: [facility] Ht: 160 cm Wt: 111 kg BSA: 2.29 m2 Gender: Female : 1955 Any Known Allergies: Other Exam Priority: Routine Procedure(s): Procedure Description: Diagnostic procedure Procedure Description: Left Heart Catheterization Procedure Description: Right Heart Catheterization Procedure Description: Left ventriculography Procedure Description: O2 saturation Procedure Description: Coronary Angiography Diagnostic Cath Status: Elective Diagnostic Findings * Left main artery: Patent, Mild luminal irregularities LAD: Mild luminal irregularities. No significant stenosis. Left circumflex artery: Ostially occluded. RCA: Proximally totally occluded RCA stents. Patient has [id number] collaterals. * Right heart cath: RA pressure: 9/7 /6 mmHg RV pressure: 41/3/9mmHg PA: 37/16/24 mmHg PCW: 13/16/12 mmHg. Ao sat: 95% PA sat: 69% TP mmHg Cardiac output: 6.1 L/min Cardiac index: 2.8 PVR: 2 Wood units . * Coronary angiography shows right dominance. Conclusions 1. Left main artery: Patent, Mild luminal irregularities LAD: Mild luminal irregularities. No significant stenosis. Left circumflex artery: Ostially occluded. RCA: Proximally totally occluded RCA stents. Patient has [id number]-[id number] collaterals. 2. Normal right and left sided cardiac pressure. 3. Moderate left ventricular systolic dysfunction. Ejection fraction of 35%. Recommendations * Guideline directed heart failure therapy. * Outpatient cardiology follow up in 4 weeks. Interventional RX Recommendation: medical therapy and/or counseling Diagnostic RX Recommendation: medical therapy and/or counseling Ventriculography Ejection Fraction: 35.0 % Pressures Phase:Rest AO : 131 / 72 ( 97 ) @ 8:13:00 AM 148 / 69 ( 100 ) @ 8:23:00 AM 150 / 64 ( 100 ) @ 8:23:00 AM LV : 155 / 6 / 24 @ 8:21:00 AM 152 / 7 / 26 @ 8:23:00 AM 146 / 8 / 22 @ 8:23:00 AM RV : 41 / 3 / 9 @ 8:10:00 AM PA : 37 / 16 ( 24 ) @ 8:08:00 AM RA : a wave = 9 v wave = 7 mean = 6 @ 8:11:00 AM PCW : a wave = 13 v wave = 16 mean = 12 @ 8:08:00 AM O2 Content Phase:Rest PA : O2 Content O2: 68.8 @ 8:23:00 AM Saturations Phase:Rest AO : 95 @ 8:13:00 AM PA : 69 @ 8:23:00 AM Cardiac Output Phase:Rest Mikayla : 4 @ 8:38:17 AM Mikayla Cardiac Index: 2 @ 8:38:17 AM Flow Phase:Rest Qp : 4 @ 8:38:17 AM Qs : 4 @ 8:38:17 AM Valves Phase:DefaultPhase AV : 0.0 @ 8:38:17 AM AV Mean Gradient: 0.0 @ 8:38:17 AM AV Flow: 588 @ 8:38:17 AM Clinical Evaluation EBL: 5mL-10mL Procedural Details Procedure Consent Obtained. Admit Source: Out Patient. Pre-Procedure Time Out. Identified patient by full name and date of as verbalized by the patient/guarantor. Does the consent match the physician's order: Yes. Accurate & Complete Informed Consent: Yes. Inpatient/Outpatient History & Physical on Chart: Yes. If H&P is completed, is and addenduem needed: No; If yes, is the addendum complete: N/A. Visualize and Verify Site with Patient/Guarantor: N/A. Relevant Radiology Images available: N/A. The risks, benefits, and alternatives of sedation and/or procedure were discussed by physician. The patient agrees to continue. Procedure started. [facility] Clinical Fraility Score: 3: Managing Well. Facility Supervisor Indications: new onset HF. Chest Pain Symptom Assessment: Atypical Angina. Cardiovascular Instability: No. Correct patient, site and procedure confirmed by cath team. IV Site on Arrival: 18 gauge in the right anticubital. IV Site on Arrival: 18 gauge in the left anticubital. IV Fluids: 0.9% NaCl at KVO. 0 mL infused prior to labourers. Pre Procedural Pulses: right radial was 1+. Pre Procedural Pulses: bilateral posterior tibial was 1+. Pre Procedural Pulses: bilateral dorsalis pedis was 2+. Oxygen started at 2liters/min via nasal canula. bilateral groins was prepped with chloroprep then draped in the usual sterile fashion. Physician notified. Baseline sample Acquired. HR: 53 BPM. Physician arrived. Physician scrubbed in. Immediate Pre-Procedure Time Out. Correct Patient: Yes; Correct Procedure: Yes; Correct Site: Yes; Correct Patient Position: Yes; Correct Supplies: Yes; Dried Flammable Prep: Yes; Blood Products Available: N/A;. Ultrasound being used by Dr Gold to assist in access. Lidocaine 1% infiltrated to the right groin. Arterial access obtained with micropuncture set. Lidocaine 1% infiltrated to the right groin. Venous access obtained with a micropuncture set. Talmage-Lily MON catheter inserted. Pressure measurements obtained. ABG drawn and sent with respiratory therapy. Talmage-Lily out. Oximetry samples were obtained. Normal venous range: 60-85%. Normal arterial range: 95-100%. A 5 icelandic JL4 catheter in over wire. Multiple views taken of left coronary artery. Catheter removed over the standard wire. A 5 icelandic JR4 catheter in over wire. Multiple views taken of right coronary artery. Catheter removed over the standard wire. A 5 icelandic Angled Pig catheter in over wire. EDP Sample taken: LV 155/6,24; HR: 73 BPM; SpO2: 100%. LV gram performed in RAMOS @ 10 mL/second for a total of 30 mL. EDP Sample taken: LV 152/7,26; HR: 74 BPM; SpO2: 99%. Pullback taken: LV 146/8,22; AO 148/69(100); Mean: 0mmHg, Peak to Peak: 0mmHg, SEP: 7sec/min; HR: 72 BPM; SpO2: 98%. Catheter out. A Right femoral angiogram was performed to determine safe placement of closure device. A Suture was successful obtaining hemostatsis at the Right Femoral artery insertion site. A Manual Compression was successful obtaining hemostatsis at the Right Femoral vein insertion site. Post Procedure: Pulses reassessed and unchanged. PERRLA. Strong, equal hand block sealer bilaterally. No VTE prophylaxis required. Medication's Wasted: Heparin = 1000 units. Medication's Wasted: Lidocaine 1% = 1 mL. Total IV fluids: 80 mL. 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 Estimated blood loss: 5mL-10mL. Complications: none. Responsiveness - Normal response to verbal stimuli; alert and oriented, PERRLA. Airway - Unaffected, no intervention required; spontaneous ventilation. Circulation: W/N/L, pulses unchanged. Nausea/Vomiting: No. Procedure completed. Patient transferred by bed to ICU. Vital chart was stopped. Access Site Site: Right Femoral artery Sheath Size: 6 Fr Hemostasis Method: Suture Hemostasis Success: Successful Site: Right Femoral vein Sheath Size: 6 Fr Hemostasis Method: Manual Compression Hemostasis Success: Successful Procedure Medications Start: 7:52 AM Stop: 7:52 AM Medication: Versed Amount: 1 mg Route: I.V. Start: 7:52 AM Stop: 7:52 AM Medication: Fentanyl Amount: 50 mcg Route: I.V. Start: 8:13 AM Stop: 8:13 AM Medication: Versed 1 mg and Fentanyl 25 mcg Amount: 1 Route: I.V. Start: 8:03 AM Stop: 8:03 AM Medication: Fentanyl Amount: 25 mcg Route: I.V. I, the attending physician, have reviewed and verified all procedure medications. Yes, all medications given per verbal order History/Risk Factors Hypertension: Yes Dyslipidemia: No Peripheral Arterial Disease (PAD): No Myocardial Infarction (TX): No Obesity: No Tobacco Use: Never Prior Interventions PCI: Yes Valve Surgery: No Report Signatures Finalized by Josias Gold MD on 09/24/2022 10:13 AM
[2022-09-12] MEDS: diphenhydrAMINE 50 mg Capsule PO (06:16)
[2022-09-12 06:40] LABS: Basophils # 0.1 10^3/uL (0.0-0.1); Basophils % 0.9 %; Eosinophils # 0.1 10^3/uL (0.0-0.8); Eosinophils % 1.8 %; Hematocrit 39.4 % (37.0-47.0); Hemoglobin 12.9 g/dL (11.5-15.3); Lymphocytes # 2.1 10^3/uL (0.8-4.8); Mean Corpuscular HGB Conc 32.7 g/dL (30.0-36.0); Mean Platelet Volume 9.9 fL (7.4-10.4); Monocytes # 0.6 10^3/uL (0.2-0.9); Monocytes % 9.8 %; Neutrophils # 2.93 10^3/uL (1.8-7.7); Neutrophils % 51.3 %; Nucleated Red Blood Cells % 0 %; Platelet Count 217 10^3/cmm (130-400); Red Blood Count 3.79 10^6/uL (4.1-5.3); Red Cell Distribution Width 13.4 % (12.1-15.1); White Blood Count 5.7 10^3/uL (4.0-10.0)
[2022-09-12 06:45] LABS: Glucose Point of Care 120 mg/dL (70-110)
--- NOTE | 2022-09-12 07:47 | W.PM.OPSUD ---
Surgery/Procedure H&P Update DATE OF PROCEDURE: September 12, 2022 DATE H&P PERFORMED: 08/27/22 H&P UPDATE INFORMATION: I have reviewed H&P completed within last 30 days, I have examined patient prior to procedure and No changes to prior documentation PREOP DIAGNOSIS: New onset congestive heart failure PRIMARY INDICATION FOR PROCEDURE: New onset congestive heart failure PLANNED PROCEDURE: Operation Date: 09/12/22 07:00 Proposed Procedures p Right and Left Heart Cath 93339,I50.9(Bilateral) - Josias Gold M.D Possible percutaneous coronary intervention PATIENT REASSESSED PRIOR TO SEDATION, WITH NO CHANGE NOTED: Yes PHYSICAL EXAM: alert, oriented x 3, clear to auscultation bilaterally and regular rate & rhythm AIRWAY EVAL/ANESTHESIA PLAN: ASA III, Local Anesthesia, Risks, benefits & alternatives of sedation and/or procedure discussed and Patient agrees to continue as planned ADDITIONAL INFORMATION: Moderate sedation
[2022-09-12 08:20] LABS: Blood Gas Sample Type Arterial; Carboxyhemoglobin 2.9 %THgb (0.4-20.1)
[2022-09-12 08:27] LABS: Alveolar-Arterial Oxygen Gradi 3.3 mmHg (5-10); Arterial Blood Gas Hematocrit 32.5 % (37-47); HGB O2 Sat 91.5 % (95-100); Methemoglobin 0.8 % (0.4-1.5); Total Hemoglobin 10.6 g/dL (12-16)
[2022-09-12 08:33] LABS: Blood Gas Operator Identificat AO
[2022-09-12 08:34] LABS: Arterial Blood Gas Hematocrit 38.2 % (37-47); Blood Gas Operator Identificat PA; Blood Gas Sample Site PA; Blood Gas Sample Type ARTERIAL; Total Hemoglobin 12.5 g/dL (12-16)
[2022-09-12 08:35] LABS: Carboxyhemoglobin 2.9 %THgb (0.4-20.1); HGB O2 Sat 66.1 % (95-100)
--- NOTE | 2022-09-12 08:47 | PC.NURSE ---
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 No hematoma, bleeding noted at site.
--- NOTE | 2022-09-12 09:15 | PC.NURSE ---
Veinous sheath removed, pressure held until hemostatis obtained. Arterial sheath removed pressure held until hemostatis obtained. Gauze and transparent dressing applied. No bleeding or hematomas noted at this time.
--- NOTE | 2022-09-12 09:30 | PC.NURSE ---
Hematoma noted on first check after arterial sheath removed. Dr Gold , at bedside, Pressure held another 15mnutes. SIte became soft agin.
--- NOTE | 2022-09-12 10:46 | PC.CHAP ---
Pastoral Care Encounter/Spiritual Assessment Type of Contact [] Declined vegetable tester visit [] Patient/Family/Request visit [] Outpatient visit [] Follow-up visit [] Physician referral [] Code/Alert [x] Routine visit [] Staff referral [] Actively dying [x] Patient sleeping [] Family support [] [] Out of room [] Palliative care [] [] Receiving care in room [] Pre-surgical visit [] Trauma [] Long length of stay [x] ICU visit [] Other: Relational/Emotional Strength [] Patient feels connected with others/family/visitors/staff [] Distress [] Loneliness/isolation [] Abandonment Spirituality of Patient [] Person of Shama [] Attends Yazidi of their Shama [] Believes in Prayer [] Reads Bible or Jewish materials [] There are Spiritual issues to be addressed 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 Interventions [x] Prayer [] Active listening [] Non-anxious presence [] Spiritual/emotional support [] Crisis/trauma care [] Spiritual counseling [] Bereavement support [] Provided bereavement packet [] Provided Bible/devotional materials [] Provided toy/stuffed animal, coloring book to patient or family member [] Provided Communion [] Anointing/Joffre [] Salvation [x] Completed spiritual assessment [] Other: Impact on Illness or Injury [] Angry [] Fearful [] Anxious [] Often cries [] Exhaustion [] Unable to work [] Unable to attend yazidi [] Unable to walk/stand [] Unable to read [] Unable to drive [] Unable to eat/drink [] Unable to sleep [] Unable to be with family [] Patient intubated [] Other: Summary Time spent with patient
--- NOTE | 2022-09-12 14:10 | PC.NURSE ---
Pt up out of bed. Ambulate through unit. No hematoma or bleeding noted at right groin. No c/o of pain or other discomforts from pt.
[2022-09-12] MEDS: amlodipine 10 mg Tablet PO (17:18)
[2022-09-12 17:26] LABS: Glucose Point of Care 100 mg/dL (70-110)
[2022-09-12] MEDS: HYDROcodone-acetaminophen 10-325 mg Tablet 1 TAB PO (17:36)
--- NOTE | 2022-09-12 18:33 | PC.NURSE ---
Shift Note: NO complaints of chest pain or shortness of breath. Pt tolerated arterial and veinous sheath removal today. The first 15min check, hematoma noted. Pressure held again, right groin now soft and palpable. Slight bruising noted. Pt has been outof bed and amb through unit. Pt's rhythm is sinus. Pt was to discharge this afternoon but severe winter weather impeded her ride home arriving to get her. Frequent safety and comfort rounds continue. Orders and/or nursing care completed as indicated. Patient monitored for response to intervention and treatment(s). Education provided includes sheath removal, amlodipine, plan of care and progress. Patient and/or sales representative door to door verbalized understanding of all discussed. . Will continue to monitor.
--- NOTE | 2022-09-12 19:04 | PC.NURSE ---
Bedside report completed with LLOYD Coto
--- NOTE | 2022-09-12 19:06 | PC.NURSE ---
Received bedside report from LLOYD Helton. Patient resting in bed watching. Patient has been ambulating in patel. No distress observed. Assessed right femoral access site as patient is s/p left heart cath. Dressing has small spot of blood with no s/s of continued bleeding or hematoma formation observed. Discussed plan for the night. Patient verbalized complete understanding. Will continue to monitor.
[2022-09-12 19:52] LABS: Glucose Point of Care 154 mg/dL (70-110)
[2022-09-12] MEDS: insulin lispro 100 unit/1 mL SUBCUT (19:52)
[2022-09-13 03:15] VITALS: BP 141/57; PULSE 65; RESP 16
[2022-09-13 05:47] VITALS: PULSE 61
[2022-09-13 07:42] LABS: Glucose Point of Care 118 mg/dL (70-110)
[2022-09-13] MEDS: HYDROcodone-acetaminophen 10-325 mg Tablet 1 TAB PO (07:57)
[2022-09-13] MEDS: amlodipine 10 mg Tablet PO (07:58)
--- NOTE | 2022-09-13 09:29 | P.DS_ITS ---
Discharge Providers Date of Admission: 09/12/22 08:35 Date of Discharge: September 13, 2022 Attending Provider at Admission: Josias Gold M.D Attending Provider at Discharge: Josias Gold M.D Primary Care Provider: YOKASTA Steele Reason for Visit Reason for Visit: I50.9 Brief History: 67-year-old woman with past medical history of coronary artery disease, PAD, Hypertension who has recent significant drop in LV systolic function. Patient here for right and left heart cath. Hospital Course Hospital Course Coronary angiogram demonstrated totally occluded RCA and left circumflex artery. LAD is patent. On LV gram EF was 35%. Patient stayed overnight for access site monitoring as had developed a hematoma. 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 Physical Exam Narrative: GENERAL: Patient is alert, awake and oriented x3. [] NECK: No jugular vein distension. [] HEENT: No cyanosis. No icterus. No pallor. [] HEART: Regular S1 and S2. No murmur, rub or gallop. [] LUNGS: Clear to auscultate bilaterally. [] CENTRAL NERVOUS SYSTEM: Grossly nonfocal. [] EXTREMITIES: Lower extremities without edema bilaterally. Right foot big toe gangrenous ulcer Discharge Data Studies Completed and Pending Pending at discharge Category Date Time Status CITY AUDITOR request for service Routine Exams 09/12/22 06:00 Taken Laboratory Results WBC 5.7 10^3/uL (4.0-10.0) 09/12/22 06:26 RBC 3.79 10^6/uL (4.1-5.3) L 09/12/22 06:26 Hgb 12.9 g/dL (11.5-15.3) 09/12/22 06:26 Hct 39.4 % (37.0-47.0) 09/12/22 06:26 MCV 104.0 fl (81-99) H 09/12/22 06:26 MCH 34.0 pg (28.0-34.0) 09/12/22 06:26 MCHC 32.7 g/dL (30.0-36.0) 09/12/22 06:26 RDW 13.4 % (12.1-15.1) 09/12/22 06:26 Plt Count 217 10^3/cmm (130-400) 09/12/22 06:26 MPV 9.9 fL (7.4-10.4) 09/12/22 06:26 Neut % (Auto) 51.3 % 09/12/22 06: Lymph % (Auto) 36.0 % 09/12/22 06:26 Hart % (Auto) 9.8 % 09/12/22 06:26 Eos % (Auto) 1.8 % 09/12/22 06:26 Baso % (Auto) 0.9 % 09/12/22 06:26 Neut # (Auto) 2.93 10^3/uL (1.8-7.7) 09/12/22 06: Lymph # (Auto) 2.1 10^3/uL (0.8-4.8) 09/12/22 06:26 Hart # (Auto) 0.6 10^3/uL (0.2-0.9) 09/12/22 06:26 Eos # (Auto) 0.1 10^3/uL (0.0-0.8) 09/12/22 06:26 Baso # (Auto) 0.1 10^3/uL (0.0-0.1) 09/12/22 06:26 Nucleated RBC % (auto) 0 % 09/12/22 06: Nucleated RBCs # 0.0 /100WBC 09/12/22 06:26 Specimen Type Arterial 09/12/22 08:00 Specimen Type Arterial 09/12/22 08:00 Sample Site Not Reportable 09/12/22 08:00 Sample Site Pa 09/12/22 08:00 Ronn Test N/a 09/12/22 08:00 Ronn Test Na 09/12/22 08:00 A-a O2 Gradient 3.3 mmHg (5-10) L 09/12/22 08:00 A-a O2 Gradient Not Reportable 09/12/22 08:00 Hematocrit 32.5 % (37-47) L 09/12/22 08:00 Hematocrit 38.2 % (37-47) 09/12/22 08:00 Hgb O2 Saturation 66.1 % (95-100) L 09/12/22 08:00 Hgb O2 Saturation 91.5 % (95-100) L 09/12/22 08:00 Carboxyhemoglobin 2.9 %THgb (0.4-20.1) 09/12/22 08:00 Carboxyhemoglobin 2.9 %THgb (0.4-20.1) 09/12/22 08:00 Methemoglobin 0.8 % (0.4-1.5) 09/12/22 08:00 Methemoglobin 1.0 % (0.4-1.5) 09/12/22 08:00 Total Hemoglobin 10.6 g/dL (12-16) L 09/12/22 08:00 Total Hemoglobin 12.5 g/dL (12-16) 09/12/22 08:00 O2 Delivery Device Not Reportable 09/12/22 08:00 O2 Delivery Device Not Reportable 09/12/22 08:00 Customer Assistance Representative ID Ao 09/12/22 08:00 Customer Assistance Representative ID Pa 09/12/22 08:00 POC Glucose 118 mg/dL (70-110) H 09/13/22 07:30 Vitals Last Vital Signs Temp 97.7 F 09/12/22 08:50 Pulse 61 09/13/22 05:47 Resp 16 09/13/22 03:15 BP 141/57 09/13/22 03:15 Pulse Ox 98 09/12/22 18:00 O2 Del Method 09/13/22 03:15 Discharge Plan Discharge Patient Disposition: Home Prescriptions: New Coreg 3.125 mg tablet 3.125 mg PO BID Qty: 90 1RF Rx Instructions: must administer with a meal/food Continued magnesium 250 mg tablet 250 mg PO DAILY (DME) pen needle, diabetic 33 gauge x 5/32 needle See Rx Instructions .ROUTE .MEDSUPPLY Qty: 100 5RF Rx Instructions: 2 times day Lasix 40 mg tablet 40 mg PO BID Qty: 180 3RF potassium chloride 20 mEq tablet extended release 20 meq PO DAILY Qty: 90 3RF aspirin [Adult Low Dose Aspirin] 81 mg tablet,delayed release (DR/EC) 81 mg PO DAILY omega-3 fatty acids [Fish Oil Concentrate] 1,000 mg capsule 1,000 mg PO DAILY@0800 hydrocodone-acetaminophen 10-325 mg tablet 1 tab PO Q6H PRN (Reason: Pain) vitamin B complex [B Complex-Vitamin B12] Tablet 1 tab PO DAILY@0800 ascorbic acid (vitamin C) 500 mg capsule 500 mg PO DAILY albuterol sulfate [ProAir HFA] 90 mcg/actuation HFA aerosol inhaler 2 puff INHALATION Q6H PRN (Reason: Shortness Of Breath) Qty: 8.5 2RF cholecalciferol (vitamin D3) 1,250 mcg (50,000 unit) capsule 1,250 mcg PO Q14D Qty: 2 2RF Rx Instructions: take twice monthly duloxetine 60 mg capsule,delayed release(DR/EC) 60 mg PO BID@0800,2200 Qty: 60 2RF famotidine 20 mg tablet 20 mg PO BID@0800,2200 Qty: 60 2RF ferrous gluconate 324 mg (37.5 mg iron) tablet 324 mg PO DAILY Qty: 30 2RF fluticasone propionate 50 mcg/actuation spray,suspension 2 spray INTRANASAL DAILY Qty: 16 2RF Levemir FlexTouch U-100 Insuln 100 unit/mL (3 mL) insulin pen 30 unit SUBCUT DAILY Qty: 15 2RF Victoza 3-Ravin 0.6 mg/0.1 mL (18 mg/3 mL) pen injector 1.8 mg SUBCUT Q24H Qty: 9 2RF Entresto 49-51 mg tablet 1 tab PO BID Qty: 60 2RF diclofenac sodium 1 % gel 2 g topical .two time day PRN (Reason: pain) Qty: 100 2RF Rx Instructions: apply to joints hands, arms, legs allopurinol 300 mg tablet 300 mg PO DAILY Qty: 30 2RF atorvastatin 40 mg tablet 40 mg PO BEDTIME@2200 Qty: 30 2RF Colace Clear 50 mg capsule 50 mg PO BID Qty: 60 2RF multivitamin Tablet 1 tab PO DAILY Qty: 0 diphenhydramine-acetaminophen [Tylenol PM Extra Strength] 25-500 mg Tablet 1 tab PO Q4H PRN (Reason: pain/sleep) Held metformin 500 mg tablet extended release 24 hr 2,000 mg PO DAILY Qty: 120 2RF Hold Instructions: Resume on 09/14/22. Discharge Orders: Discharge Order (Routine); Ordered 09/13/22 Ordered By: Josias Gold Referrals: Josias Gold M.D [Physician] - 2 months (Please call [phone] to make follow up appointment. ) Elizabet Roberts FNP [Nurse Practitioner] - 7-10 days (Please call [facility] office to schedule an appointment to be seen within 7-10 days. [phone]. ) Diet: Diabetic Activity: Increase activity as tolerated Patient Instructions: Opioid Safety Discharge Date/Time: 09/13/22 10:00 Discharge Attestations Time Spent in Discharge Care*: less than 30 min Quality Metrics Clinical Quality Measures [ No reported AMI, CVA or VTE this stay] Coding Level of Care Code Acute Chg DC note
[2022-09-13 09:32] VITALS: BP 142/77; PULSE 84; RESP 12; TEMP 37.1; O2SAT 97
--- NOTE | 2022-09-13 09:59 | PC.NURSE ---
Education provided with patients at bedside. Pugh points highlighted throughout discharge paperwork as well as follow up appointments. Medications reviewed with patient and S/O. Patient ambulated to personal vehicle. No questions at the time of discharge.
== END 2022-09-13 10:00 | disposition home or self-care (01) ==
LOC: CCL 06:12 → ICU 08:43
PROVIDERS: PCP Nurse Practitioner; Visit Provider Internal Medicine
DX: I25.10 Atherosclerotic heart disease of native coronary artery without angina pectoris (principal); I25.82 Chronic total occlusion of coronary artery; I10 Essential (primary) hypertension; I11.0 Hypertensive heart disease with heart failure; I50.9 Heart failure, unspecified; I73.9 Peripheral vascular disease, unspecified; J44.9 Chronic obstructive pulmonary disease, unspecified; E11.9 Type 2 diabetes mellitus without complications; Z79.4 Long term (current) use of insulin; M19.90 Unspecified osteoarthritis, unspecified site; I45.9 Conduction disorder, unspecified
CPT/HCPCS: 36415; 36416; 82810; 82962; 85025; 93460; 96360; 96372; 99152; 99153; C1751; C1769; C1887; C1894; G0378; J1644; J1815; J2250; J3010; J3490; J7030; Q0163; Q9967

== ENCOUNTER → 2022-09-30 09:09 | Outpatient (BNVA) | payer MEDICARE, SELFPAY | PROVIDERS: PCP Nurse Practitioner; Visit Provider Nurse Practitioner Family | DX: I25.10 Atherosclerotic heart disease of native coronary artery without angina pectoris (principal); I11.0 Hypertensive heart disease with heart failure; I50.9 Heart failure, unspecified | CPT/HCPCS: 36415; 80048; 99214 ==

== ENCOUNTER → 2022-12-05 10:23 | Outpatient (BNVA) | payer MEDICARE, SELFPAY | PROVIDERS: PCP Nurse Practitioner; Visit Provider Nurse Practitioner | DX: E11.65 Type 2 diabetes mellitus with hyperglycemia (principal); Z79.4 Long term (current) use of insulin; I10 Essential (primary) hypertension; Z79.899 Other long term (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 therapy | CPT/HCPCS: 80053; 80061; 83036; 85025 ==

== ENCOUNTER 2023-01-31 10:09 | Emergency (ER) | payer MEDICARE, SELFPAY ==
[2023-01-31 10:12] VITALS: BP 125/81; PULSE 73; RESP 14; TEMP 36.7; O2SAT 96; BMI 42.5
--- NOTE | 2023-01-31 10:20 | ED_ITS ---
HPI - Extremity Injury (Upper) General: Chief Complaint: Extremity Injury, Upper Stated Complaint: Left shoulder pain Time Seen by Provider: 01/31/23 10:11 Source: patient Mode of arrival: ambulatory Limitations: no limitations History of Present Illness: Patient is a nice 67-year-old female presents to ED today with a complaint of left shoulder pain. Yesterday she states she was trying to round up some chickens when she accidentally slipped and fell on wet ground and states she fell directly onto her left shoulder. She states she has had pain since the injury and it does not have much range of motion of the joint. She denies any other injury sustained during the fall. MD complaint: injury to: left and shoulder Onset (ago): day(s) (yesterday) Other Extremity Injury: Left: shoulder Other injuries: none Place: home Severity: severe Relieving factors: immobilization Exacerbating factors: movement of extremity Context: fall Associated symptoms: Reports no associated symptoms; Denies neck pain or weakness in extremities Review of Systems Eyes: Denies: change in vision, blurry vision, photophobia, eye discharge, floaters or seeing flashes ENMT: Denies: throat pain, odynophagia, ear or mastoid pain, ear discharge, nasal discharge, epistaxis or sinus pain Card: Denies: chest pain, palpitations, lightheadedness, syncope or pre- syncope Resp: Denies: dyspnea or pain on inspiration GI: Denies: abdominal pain : Denies: flank pain or hematuria Musc: Reports: extremity pain (L upper arm), joint pain (L shoulder) and limited range of motion; Denies: neck pain, back pain, extremity swelling, joint swelling, joint redness or joint warmth Neuro: Denies: numbness in extremities, weakness in extremities or sensory changes PFS ED PFSH: Medical History Allergic rhinoconjunctivitis, seasonal and perennial ASHD (arteriosclerotic heart disease) CAD (coronary artery disease) Carotid artery disease CHF (congestive heart failure) Chronic pain Chronic polyneuropathy COPD (chronic obstructive pulmonary disease) Diabetes mellitus with hyperglycemia, with long-term current use of insulin Essential hypertension Generalized osteoarthritis GERD (gastroesophageal reflux disease) Heart block High risk medication use History of carotid artery stenosis HNP (herniated nucleus pulposus), lumbar Hypertriglyceridemia Lumbar spinal stenosis Osteoarthritis PAD (peripheral artery disease) Polyneuropathy Primary generalized (osteo)arthritis Rheumatoid arthritis with negative rheumatoid factor Vitamin D deficiency Surgical History H/O esophagogastroduodenoscopy (04/12/22) History of ankle surgery History of bilateral carpal tunnel release History of colonoscopy with polypectomy (04/12/22) S/P angioplasty with stent 2019 right leg 2018 heart S/P carotid endarterectomy Left 2019 S/P cervical spinal fusion 2005 S/P hysterectomy S/P knee replacement Bilateral 2006 Family History Other CAD (coronary artery disease) Diabetes Social History Smoking and tobacco status: never smoked Second hand smoke exposure: No Smoking risk assessment/counseling performed?: No Alcohol intake: never Desire information about alcohol rehabilitation?: No Counseling given: No Substance/Drug Use: never Desire information about substance/drug rehabilitation?: No Counseling given: No Caregiver/support person: No Lives independently: Yes Household members: spouse Marital status: Number of children: 3 Highest education level completed: 10th Grade service: No Current occupational status: disabled Pets and animals: Yes Do you think of yourself as: Straight/Heterosexual Current gender identity: Female Physical Exam Const: COMMON NORMALS: no acute distress, patient oriented x3, no limitations, alert and well nourished GENERAL APPEARANCE: cooperative ORIENTATION/CONSCIOUSNESS: Yes awake, Yes oriented to person, Yes oriented to place and Yes oriented to time HENMT: COMMON NORMALS: normocephalic, atraumatic and TM's normal bilaterally HEAD & SCALP: normal to inspection, normocephalic and atraumatic FACE & SINUS: normal facial exam TYMPANIC MEMBRANE: TM's normal bilaterally MOUTH: other (no intraoral injuries noted) Eye: COMMON NORMALS: Equal, round and reactive pupils present and EOMs intact bilaterally GENERAL EYE: appearance normal, both eyes and all related structures and normal light reflex PUPIL: Yes Equal, round and reactive pupils present DIRECT OPHTHALMOSCOPY: Yes normal light reflex Neck/C-Spine: COMMON NORMALS: full ROM, no lymphadenopathy, supple and no meningeal signs GENERAL: Yes normal visual inspection CERVICAL SPINE: Yes cervical ROM normal, No pain with cervical ROM, No Cervical spine tenderness, No step off deformity and No Paracervical muscle tenderness Chest: COMMONS NORMALS: normal inspection of the chest Resp: COMMON NORMALS: normal respiratory effort and clear to auscultation bilaterally AUSCULTATION: clear to auscultation bilaterally Cardio: COMMON NORMALS: regular rate and regular rhythm RATE: regular rate RHYTHM: regular rhythm GI: COMMON NORMALS: Normal to inspection, nondistended, normoactive bowel sounds present, Soft to palpation, non-tender, No hepatosplenomegaly present and no masses INSPECTION: Yes normal to inspection and No abdominal wall ecchymosis AUSCULTATION: Yes normoactive bowel sounds PALPATION: Yes Soft to palpation and Yes No hepatosplenomegaly present : COMMON NORMALS: Yes no CVA tenderness BLADDER/KIDNEY EXAM: Yes no CVA tenderness Back/Pelvis: COMMON NORMALS: no CVA tenderness and thoracic and lumbar spine normal to inspection Extremity: COMMON NORMALS: normal to inspection, capillary refill normal and no clubbing, cyanosis or edema GENERAL: Yes normal exam except as noted LEFT UPPER EXTREMITY: Yes shoulder joint (TTP mainly to glenohumeral/proximal humerus) Left shoulder joint: Yes ROM (significantly limited secondary to discomfort) and Yes neurovascular exam (normal) Neuro: GAIL COMA SCALE: document GCS findings Gail coma scale eye opening: Spontaneous Gail coma scale verbal response: Orientated [place] coma scale motor response: Obey commands [place] coma scale total score: 15 COMMON NORMALS: patient oriented x3, moves all extremities, no focal motor deficits and no sensory deficits noted SENSORIUM/ORIENTATION: Yes alert, Yes oriented to person, Yes oriented to place and Yes oriented to time MENINGEAL SIGNS: Yes no meningeal signs SPEECH: speech normal GAIT: Yes Normal gait present Skin: COMMON NORMALS: no rashes or lesions noted GENERAL SKIN EXAM: no rashes or lesions noted TRAUMA: no lacerations or abrasions Course Vital Signs: Vital signs: Vital Signs Temperature 98.0 F 01/31/23 10:12 Pulse Rate 73 01/31/23 10:12 Respiratory Rate 14 01/31/23 10:12 Blood Pressure 125/81 01/31/23 10:12 Pulse Oximetry 96 01/31/23 10:12 Oxygen Delivery Me thod Room Air 01/31/23 10:12 MDM - Extremity Injury (Upper) Medical Decision Making Patient with a comminuted fracture to the greater tuberosity of her left humeral head. She will be placed in a sling and will have her follow-up with orthopedics. Lab Data Radiology Impressions Humerus X-Ray 01/31/23 10:25 Impression: Comminuted fracture the greater tuberosity of the left humeral head. Shoulder X-Ray 01/31/23 10:25 Impression: Comminuted fracture of the lesser tuberosity of the left humeral head. Discharge Plan Discharge Patient Disposition: Home Clinical Impression: Closed fracture of left proximal humerus Qualifiers: Encounter type: initial encounter Fracture morphology: other fracture Fracture alignment: nondisplaced Qualified Code(s): S42.295A - Other nondisplaced fracture of upper end of left humerus, initial encounter for closed fracture Condition: Stable Prescriptions: No Action magnesium 250 mg tablet 250 mg PO DAILY (DME) pen needle, diabetic 33 gauge x 5/32 needle See Rx Instructions .ROUTE .MEDSUPPLY Qty: 100 5RF Rx Instructions: 2 times day potassium chloride 20 mEq tablet extended release 20 meq PO DAILY Qty: 90 3RF aspirin [Adult Low Dose Aspirin] 81 mg tablet,delayed release (DR/EC) 81 mg PO DAILY omega-3 fatty acids [Fish Oil Concentrate] 1,000 mg capsule 1,000 mg PO DAILY@0800 hydrocodone-acetaminophen 10-325 mg tablet 1 tab PO Q6H PRN (Reason: Pain) vitamin B complex [B Complex-Vitamin B12] Tablet 1 tab PO DAILY@0800 ascorbic acid (vitamin C) 500 mg capsule 500 mg PO DAILY allopurinol 300 mg tablet 300 mg PO DAILY Qty: 30 2RF albuterol sulfate [ProAir HFA] 90 mcg/actuation HFA aerosol inhaler 2 puff INHALATION Q6H PRN (Reason: Shortness Of Breath) Qty: 8.5 2RF atorvastatin 40 mg tablet 40 mg PO BEDTIME@2200 Qty: 30 2RF cholecalciferol (vitamin D3) 1,250 mcg (50,000 unit) capsule 1,250 mcg PO Q14D Qty: 2 2RF Rx Instructions: take twice monthly diclofenac sodium 1 % gel 2 g topical .two time day PRN (Reason: pain) Qty: 100 2RF Rx Instructions: apply to joints hands, arms, legs Colace Clear 50 mg capsule 50 mg PO BID Qty: 60 2RF duloxetine 60 mg capsule,delayed release(DR/EC) 60 mg PO BID@0800,2200 Qty: 60 2RF famotidine 20 mg tablet 20 mg PO BID@0800,2200 Qty: 60 2RF ferrous gluconate 324 mg (37.5 mg iron) tablet 324 mg PO DAILY Qty: 30 2RF fluticasone propionate 50 mcg/actuation spray,suspension 2 spray INTRANASAL DAILY Qty: 16 2RF insulin detemir U-100 100 unit/mL solution 30 unit SUBCUT DAILY Qty: 10 2RF Victoza 3-Ravin 0.6 mg/0.1 mL (18 mg/3 mL) pen injector 1.8 mg SUBCUT Q24H Qty: 9 2RF metformin 1,000 mg tablet 1,000 mg PO BIDWMEAL Qty: 60 2RF Entresto 49-51 mg tablet 1 tab PO BID Qty: 60 2RF Lasix 40 mg tablet 40 mg PO BID Qty: 180 3RF Coreg 3.125 mg tablet 3.125 mg PO BID Qty: 90 1RF Rx Instructions: must administer with a meal/food (DME) BD Insulin Syringe (half unit) 0.3 mL 31 gauge x 5/16 syringe See Rx Instructions .Route Qty: 100 2RF Rx Instructions: one day (DME) pen needle, diabetic [Comfort EZ Pen [place]] 31 gauge x 5/16 needle See Rx Instructions .Route Qty: 100 2RF Rx Instructions: As directed multivitamin Tablet 1 tab PO DAILY Qty: 0 diphenhydramine-acetaminophen [Tylenol PM Extra Strength] 25-500 mg Tablet 1 tab PO Q4H PRN (Reason: pain/sleep) Discharge Orders: Discharge ED (Routine); Ordered 01/31/23 Ordered By: Em Zepeda Referrals: Amy Morris, [facility] [Primary Care Provider] - Patient Instructions: Proximal Humerus Fracture (ED) Activity Restrictions/Additional Instructions: As we discussed you need to wear your sling at all times apart from showering or bathing. You may continue your normal pain medication/hydrocodone as needed/as prescribed. Case management should contact you later today or early next week to set you up with your follow-up with orthopedic appointment. Coding Level of Care Code ED Insulation Blanket Maker for Poonam Chance
--- NOTE | 2023-01-31 10:25 | XR_ITS ---
WS: [id number] Left shoulder, 3 views, 01/31/2023 Clinical Data: trauma/fall Comparison: None. Findings: There is a comminuted fracture involving the lesser tuberosity of the left humeral head. No displacem ent of the humeral head from glenoid fossa is seen. The AC joint shows mild osteoarthritic change. XR/XR shoulder LT min 2V* [id number] Impression: Comminuted fracture of the lesser tuberosity of the left humeral head.
--- NOTE | 2023-01-31 10:25 | XR_ITS ---
WS: [id number] Left arm and humerus, AP and lateral views, 01/31/2023 Clinical Data: fall/trauma Comparison: None. Findings: There is a comminuted fracture of the greater tuberosity of the humeral head. The humeral shaft is in tact. The soft tissues are normal.. XR/[place] [id number] Impression: Comminuted fracture the greater tuberosity of the left humeral head.
--- NOTE | 2023-01-31 12:21 | PC.NURSE ---
Addendum entered by Caitlin Estrada 02/06/23 09:21: Patient had a follow up appointment scheduled with ortho - patient did attend appointment. Addendum entered by Caitlin Estrada 02/04/23 13:45: Patient has a follow up appointment scheduled for Sunday, February 05, 2023 at 10:[address] Farr at ortho. Original Note: Patient seen in the ED on 01/31/23. Being referred to ortho for Left proximal humeral fracture. [facility] sent message to call patient with an appt.
== END 2023-01-31 11:36 | disposition home or self-care (01) ==
PROVIDERS: Emergency Provider Physician Assistant; PCP Nurse Practitioner
DX: S42.252A Displaced fracture of greater tuberosity of left humerus, initial encounter for closed fracture (principal); Z79.82 Long term (current) use of aspirin; Z79.4 Long term (current) use of insulin; Z79.84 Long term (current) use of oral hypoglycemic drugs; I11.0 Hypertensive heart disease with heart failure; I50.9 Heart failure, unspecified; J44.9 Chronic obstructive pulmonary disease, unspecified; E11.9 Type 2 diabetes mellitus without complications; W01.0XXA Fall on same level from slipping, tripping and stumbling without subsequent striking against object, initial encounter
CPT/HCPCS: 73030; 73060; 99283

== ENCOUNTER 2023-02-05 14:34 | Outpatient (CLI) | payer MEDICARE, SELFPAY | END 2023-02-05 14:35 | disposition home or self-care (01) | LOC: SPT 14:35 | PROVIDERS: PCP Nurse Practitioner; Visit Provider Specialist | DX: Z46.89 Encounter for fitting and adjustment of other specified devices (principal); S42.202D Unspecified fracture of upper end of left humerus, subsequent encounter for fracture with routine healing; X58.XXXD Exposure to other specified factors, subsequent encounter | CPT/HCPCS: 24530; 97760; 99203; L3670 ==

== ENCOUNTER → 2023-02-19 09:24 | Outpatient (BNVA) | payer MEDICARE, SELFPAY | PROVIDERS: PCP Nurse Practitioner; Visit Provider Specialist | DX: S42.295A Other nondisplaced fracture of upper end of left humerus, initial encounter for closed fracture (principal); W01.0XXA Fall on same level from slipping, tripping and stumbling without subsequent striking against object, initial encounter | CPT/HCPCS: 73030; 99024 ==

== ENCOUNTER → 2023-02-24 08:40 | Outpatient (BNVA) | payer MEDICARE, SELFPAY | PROVIDERS: PCP Nurse Practitioner; Visit Provider Nurse Practitioner | DX: Z79.899 Other long term (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 therapy (principal); E11.65 Type 2 diabetes mellitus with hyperglycemia; Z79.4 Long term (current) use of insulin; I10 Essential (primary) hypertension; E55.9 Vitamin D deficiency, unspecified | CPT/HCPCS: 80053; 80061; 82306; 83036; 85025 ==

== ENCOUNTER → 2023-03-19 09:03 | Outpatient (BNVA) | payer MEDICARE, SELFPAY | PROVIDERS: PCP Nurse Practitioner; Visit Provider Specialist | DX: S42.252D Displaced fracture of greater tuberosity of left humerus, subsequent encounter for fracture with routine healing (principal); W01.0XXD Fall on same level from slipping, tripping and stumbling without subsequent striking against object, subsequent encounter | CPT/HCPCS: 73030; 99024 ==

== ENCOUNTER → 2023-03-26 13:27 | Outpatient (BNVA) | payer MEDICARE, SELFPAY | PROVIDERS: PCP Nurse Practitioner; Visit Provider Nurse Practitioner Family | DX: I25.10 Atherosclerotic heart disease of native coronary artery without angina pectoris (principal); I11.0 Hypertensive heart disease with heart failure; I50.20 Unspecified systolic (congestive) heart failure | CPT/HCPCS: 99214 ==

== ENCOUNTER → 2023-04-10 07:39 | Outpatient (BNVA) | payer MEDICARE, SELFPAY | PROVIDERS: PCP Nurse Practitioner; Visit Provider Podiatrist Foot & Ankle Surgery | DX: S92.511A Displaced fracture of proximal phalanx of right lesser toe(s), initial encounter for closed fracture (principal); W22.8XXA Striking against or struck by other objects, initial encounter | CPT/HCPCS: 73630; 99213 ==

== ENCOUNTER → 2023-04-16 08:35 | Outpatient (BNVA) | payer MEDICARE, SELFPAY | PROVIDERS: PCP Nurse Practitioner; Visit Provider Specialist | DX: S42.295D Other nondisplaced fracture of upper end of left humerus, subsequent encounter for fracture with routine healing; W01.0XXD Fall on same level from slipping, tripping and stumbling without subsequent striking against object, subsequent encounter | CPT/HCPCS: 73030; 99024 ==

== ENCOUNTER → 2023-05-23 08:49 | Outpatient (BNVA) | payer MEDICARE, SELFPAY | PROVIDERS: PCP Nurse Practitioner; Visit Provider Nurse Practitioner | DX: E11.65 Type 2 diabetes mellitus with hyperglycemia (principal); E79.0 Hyperuricemia without signs of inflammatory arthritis and tophaceous disease; Z79.4 Long term (current) use of insulin | CPT/HCPCS: 80053; 80061; 83036; 84550 ==

== ENCOUNTER → 2023-08-06 08:12 | Outpatient (BNVA) | payer MEDICARE, SELFPAY | PROVIDERS: PCP Nurse Practitioner; Visit Provider Nurse Practitioner | DX: E11.65 Type 2 diabetes mellitus with hyperglycemia (principal); Z79.4 Long term (current) use of insulin; E61.1 Iron deficiency; E55.9 Vitamin D deficiency, unspecified; Z79.899 Other long term (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 therapy; I10 Essential (primary) hypertension | CPT/HCPCS: 80053; 80061; 82306; 82607; 83036; 84443; 85025 ==

== ENCOUNTER 2023-09-12 15:38 | Outpatient (CLI) | payer MEDICARE, SELFPAY ==
--- NOTE | 2023-09-12 16:30 | US_ITS ---
WS: [id number] ULTRASOUND SOFT TISSUES LEFT hip HISTORY: M79.89 - Other specified soft tissue disorders COMPARISON: None available. TECHNIQUE: 2-D and color Doppler imaging is submitted. Ultrasound is directed over the LEFT hip at the site of the palpable abnormality. No ultrasound abnor mality is identified. There is a palpable abnormality but no corresponding imaging finding. IMPRESSION: No corresponding imaging abnormality over the LEFT hip at the site of the palpable nodule.
== END 2023-09-12 15:39 | disposition home or self-care (01) ==
LOC: RAD 15:39
PROVIDERS: PCP Nurse Practitioner; Visit Provider Nurse Practitioner
DX: M79.89 Other specified soft tissue disorders (principal)
CPT/HCPCS: 76882

== ENCOUNTER → 2023-09-24 13:43 | Outpatient (BNVA) | payer MEDICARE, SELFPAY | PROVIDERS: PCP Nurse Practitioner; Visit Provider Internal Medicine | DX: I25.10 Atherosclerotic heart disease of native coronary artery without angina pectoris (principal); I45.9 Conduction disorder, unspecified; I11.0 Hypertensive heart disease with heart failure; I50.9 Heart failure, unspecified; E11.51 Type 2 diabetes mellitus with diabetic peripheral angiopathy without gangrene; E11.65 Type 2 diabetes mellitus with hyperglycemia; Z79.4 Long term (current) use of insulin | CPT/HCPCS: 99214 ==

== ENCOUNTER 2023-09-30 13:19 | Outpatient (CLI) | payer MEDICARE, SELFPAY ==
--- NOTE | 2023-09-30 13:30 | MM_ITS ---
WS: [email or web address] BILATERAL 3D TOMOSYNTHESIS DIGITAL SCREENING MAMMOGRAPHY WITH CAD CLINICAL INFORMATION: Z12.31 - Encounter for screening mammogram for malignant ... HISTORY: Screening mammogram. No current complaints. COMPARISON: 2021 TECHNIQUE: Bilateral CC and MLO views. FINDINGS: Scattered fibroglandular densities bilaterally. No suspicious focal mass, asymmetry, calcifications, or architectural distortion. No evidence of malignancy. Diffuse scattered punctate and clustered calc ifications similar to previous. IMPRESSION: MM/[place] [address] BI-RADS: 2-Benign FOLLOW UP: 1 Year Follow-up Recommend return to annual screening mammography.
== END 2023-09-30 13:20 | disposition home or self-care (01) ==
LOC: MOBLMAM 13:29
PROVIDERS: PCP Nurse Practitioner; Visit Provider Nurse Practitioner
DX: Z12.31 Encounter for screening mammogram for malignant neoplasm of breast (principal)
CPT/HCPCS: 77063; 77067

== ENCOUNTER → 2023-11-10 09:22 | Outpatient (BNVA) | payer MEDICARE, SELFPAY | PROVIDERS: PCP Nurse Practitioner; Visit Provider Nurse Practitioner | DX: E11.9 Type 2 diabetes mellitus without complications (principal) | CPT/HCPCS: 80053; 80061; 83036; 84443; 85025 ==

== ENCOUNTER → 2024-01-26 09:40 | Outpatient (BNVA) | payer MEDICARE, SELFPAY | PROVIDERS: PCP Nurse Practitioner; Visit Provider Nurse Practitioner | DX: I10 Essential (primary) hypertension (principal); E11.65 Type 2 diabetes mellitus with hyperglycemia | CPT/HCPCS: 80053; 80061; 82607; 83036; 84443; 85025 ==

== ENCOUNTER 2024-02-03 08:47 | Outpatient (CLI) | payer MEDICARE, SELFPAY ==
--- NOTE | 2024-02-03 08:54 | XRR_ITS ---
PROCEDURE INFORMATION: Exam: XR Left Knee Exam date and time: 02/03/2024 9:01 AM Age: 68 years old Clinical indication: Pain; Knee; Left; Prior surgery; Surgery date: 6+ months; Surgery type: Bilateral tka; Additional info: M15.0 - primary generalized (osteo)arthritis TECHNIQUE: Imaging protocol: Radiologic exam of the left knee. Views: 3 views. COMPARISON: CT angio abd aorta runof [id number] 03/12/2021 8:33 AM FINDINGS: Bones/joints: Left knee replacement in anatomic position with no complication evident. Soft tissues: Vascular calcifications noted in the soft tissues. No significant soft tissue pathology. XR/XR knee LT 3V* [id number] IMPRESSION: Intact knee replacement.
--- NOTE | 2024-02-03 08:54 | XRR_ITS ---
PROCEDURE INFORMATION: Exam: XR Left Hip Exam date and time: 02/03/2024 9:01 AM Age: 68 years old Clinical indication: Hip pain; Left hip; Additional info: M48.061 - spinal stenosis, lumbar region without neurogen. . . TECHNIQUE: Imaging protocol: Radiologic exam of the left hip. Views: 2 or 3 views hip with pelvis when performed. COMPARISON: CR XR hip BI 3-4V wo/[place] [id number] 08/23/2020 9:08 AM FINDINGS: Bones/joints: Severe degenerative osteoarthritis of the left hip, slightly increased compared with 08/23/2020. No acute fracture or dislocation. Suture anchors noted in the pubic bones. Soft tissues: Vascular calcifications noted in the soft tissues. XR/XR hip LT 2-3V wo/w pel* [id number] IMPRESSION: Severe degenerative osteoarthritis of the left hip.
--- NOTE | 2024-02-03 09:00 | CT_ITS ---
WS: [id number] CT LUMBAR SPINE TECHNIQUE: Noncontrast CT of the lumbar spine with coronal and sagittal reformatted images. CLINICAL INFORMATION: M48.061 - Spinal stenosis, lumbar region without neurogen... COMPARISON: 2020 DLP: 1357.[address] scans at [facility] use at least one of these dose optimization techniques: automated e xposure control; mA and/or kV adjustment per patient size (includes targeted exams where dose is matc hed to clinical indication); or iterative reconstruction. FINDINGS: Osteopenia. Mild lumbar curve. Moderate spondylitic changes. Disc narrowing worse at L3-4. No acute a ppearing compression fractures. T12-L1: Central disc osteophyte protrusion. Spinal canal is patent. Mild facet arthropathy. Foramen a re patent. L1-L2: Mild annular bulging. Mild facet arthropathy. Mild LEFT and no significant RIGHT foraminal oswaldo rowing. Moderate facet arthropathy. L2-L3: Slight retrolisthesis. Mild disc bulging with mild central canal stenosis. Moderate facet arth ropathy. RIGHT eccentric disc bulging with moderate RIGHT foraminal narrowing. LEFT foramen is patent . L3-L4: Moderate central canal stenosis due to disc bulging in combination with facet arthropathy and ligamentum flavum hypertrophy. Moderate RIGHT and mild LEFT foraminal narrowing. L4-L5: Moderate to severe central canal stenosis due to disc bulging in combination with facet arthro ryley and ligamentum flavum hypertrophy. Severe RIGHT and moderate LEFT foraminal narrowing. L5-S1: Shallow central protrusion. Spinal canal and foramina are patent. Advanced facet arthropathy. Visualized pelvic bony structures: Normal. Paravertebral soft tissues: Normal. LEFT adrenal nodule is unchanged since 2020 measuring 3.5 x 3.1 cm with some associated calcification . Fat attenuation compatible with adenoma. CT/CT lumbar spine wo con* [id number] IMPRESSION: 1. Moderate spondylitic changes. Disc narrowing worse at L3-4. No acute compre ssion fractures. 2. Moderate central canal stenosis L3-4 and severe central canal stenosis L4-5 appears stable compared to previous. 3. Stable mild central canal stenosis L2-3. 4. Bony foraminal narrowing worse at RIGHT L3-4, RIGHT L4-5, 5. Moderate to advanced facet arthropathy L3-L5. 6. Stable LEFT adrenal adenoma. Above findings to be better evaluated with MRI if patient is a candidate
== END 2024-02-03 08:48 | disposition home or self-care (01) ==
LOC: RAD 08:48
PROVIDERS: PCP Nurse Practitioner; Visit Provider Nurse Practitioner
DX: M48.061 Spinal stenosis, lumbar region without neurogenic claudication (principal); M15.0 Primary generalized (osteo)arthritis; M99.63 Osseous and subluxation stenosis of intervertebral foramina of lumbar region; M47.896 Other spondylosis, lumbar region; D35.02 Benign neoplasm of left adrenal gland; Z96.652 Presence of left artificial knee joint; M16.12 Unilateral primary osteoarthritis, left hip
CPT/HCPCS: 72131; 73502; 73562

== ENCOUNTER → 2024-03-31 10:25 | Outpatient (BNVA) | payer MEDICARE, SELFPAY | PROVIDERS: PCP Nurse Practitioner; Visit Provider Specialist | DX: M16.12 Unilateral primary osteoarthritis, left hip; M54.50 Low back pain, unspecified; M79.605 Pain in left leg | CPT/HCPCS: 73502; 99214 ==

== ENCOUNTER → 2024-04-05 09:03 | Outpatient (BNVA) | payer MEDICARE, SELFPAY | PROVIDERS: PCP Nurse Practitioner; Visit Provider Nurse Practitioner | DX: E11.65 Type 2 diabetes mellitus with hyperglycemia (principal); E55.9 Vitamin D deficiency, unspecified | CPT/HCPCS: 80053; 80061; 82306; 82607; 83036; 84443; 85025 ==

== ENCOUNTER → 2024-04-07 09:53 | Outpatient (BNVA) | payer MEDICARE, SELFPAY | PROVIDERS: PCP Nurse Practitioner; Visit Provider Nurse Practitioner Family | DX: I11.0 Hypertensive heart disease with heart failure (principal); I50.9 Heart failure, unspecified; I25.10 Atherosclerotic heart disease of native coronary artery without angina pectoris; Z87.891 Personal history of nicotine dependence | CPT/HCPCS: 99214 ==

== ENCOUNTER → 2024-04-13 12:24 | Outpatient (BNVA) | payer MEDICARE, SELFPAY | PROVIDERS: PCP Nurse Practitioner; Visit Provider Orthopaedic Surgery | DX: M48.061 Spinal stenosis, lumbar region without neurogenic claudication (principal); M41.86 Other forms of scoliosis, lumbar region; M48.07 Spinal stenosis, lumbosacral region; M25.78 Osteophyte, vertebrae | CPT/HCPCS: 72110; 99204 ==

== ENCOUNTER 2024-04-21 06:00 | Outpatient (RCR) | payer MEDICARE, SELFPAY | END 2024-04-21 23:59 | disposition home or self-care (01) | LOC: APT 06:00 | PROVIDERS: Visit Provider Orthopaedic Surgery | DX: M54.9 Dorsalgia, unspecified (principal); G89.29 Other chronic pain | CPT/HCPCS: 97163 ==

== ENCOUNTER 2024-04-22 06:00 | Outpatient (RCR) | payer MEDICARE, SELFPAY | END 2024-05-22 23:59 | disposition home or self-care (01) | LOC: APT 06:00 | PROVIDERS: PCP Nurse Practitioner; Visit Provider Orthopaedic Surgery | DX: M54.9 Dorsalgia, unspecified (principal); G89.29 Other chronic pain | CPT/HCPCS: 97110; 97530 ==

== ENCOUNTER 2024-04-28 09:42 | Outpatient (CLI) | payer MEDICARE, SELFPAY ==
--- NOTE | 2024-04-28 09:45 | CT_ITS ---
WS: [id number] CT LUMBAR SPINE MYELOGRAM TECHNIQUE: CT myelogram of the lumbar spine with coronal and sagittal reformatted images. CLINICAL INFORMATION: low back pain COMPARISON: CT 02/03/2024 and MRI 2019 DLP: 849.[address] scans at [facility] use at least one of these dose optimization techniques: automated e xposure control; mA and/or kV adjustment per patient size (includes targeted exams where dose is matc hed to clinical indication); or iterative reconstruction. FINDINGS: Mild lumbar curve. Osteopenia. Multilevel disc space narrowing throughout the lumbar spine. L1-L2: Mild annular bulging. Narrowing of the LEFT subarticular recess. Mild facet arthropathy. Mild LEFT foraminal narrowing. L2-L3: Mild disc bulging with osteophytic ridging. Moderate narrowing of the thecal sac with crowding of the cauda equina nerve roots. Moderate facet arthropathy. Small bilateral foraminal protrusions w ith moderate RIGHT and mild LEFT foraminal narrowing. Ligamentum flavum hypertrophy. L3-L4: Mild disc bulging with facet arthropathy and ligamentum flavum hypertrophy. Moderate narrowing of the thecal sac. Moderate RIGHT and mild LEFT foraminal narrowing. L4-L5: Mild disc bulging with severe central canal stenosis. Moderate facet arthropathy ligamentum fl avum hypertrophy. Moderate RIGHT and mild LEFT foraminal narrowing. Impingement on the exiting RIGHT L4 nerve root. L5-S1: Mild annular bulging. Advanced facet arthropathy. Spinal canal and foramen are patent. Visualized pelvic bony structures: Normal. Paravertebral soft tissues: Normal. Dense vascular calcification. LEFT adrenal mass with central calcification. LEFT adrenal mass compati ble with adenoma measuring 3.7 x 3.8 cm. RIGHT adrenal gland is normal. CT/CT lumbar spine w con [id number] IMPRESSION: 1. Progressed moderate narrowing of the thecal sac at L2-L3 and L3-L4 worse at L3-L4 with facet arthropathy ligamentum flavum hypertrophy. 2. Severe central canal stenosis L4-5 with advanced facet arthropathy and liga mentum flavum hypertrophy. This appears progressed since 2018 MRI 3. Moderate RIGHT L4-5 foraminal narrowing impinges the exiting RIGHT L4 nerve root. 4. Moderate RIGHT L2-3 and moderate RIGHT L3-4 foraminal narrowing. 5. Advanced facet arthropathy L5-S1 6. Large LEFT adrenal adenoma described above.
--- NOTE | 2024-04-28 10:00 | IR_ITS ---
WS: [id number] MYELOGRAM LUMBAR SPINE Fluoroscopic guided lumbar myelogram CLINICAL INFORMATION: low back pain TECHNIQUE: The procedure, including risks, benefits, and complications, were discussed with the patie nt who agreed to proceed. A timeout was performed to confirm correct patient, procedure, and site. Using sterile technique, the patient was prepped and draped in the usual sterile fashion. After admin istration of local anesthesia using 1% preservative-free lidocaine and using fluoroscopic guidance, a 22-gauge spinal needle was advanced into the subarachnoid space at the L2-3 level. Subsequently 13 c c of Omnipaque 240 was administered into the thecal sac. The needle was removed and hemostasis was ac hieved. Spot fluoroscopic images were obtained. FLUOROSCOPIC TIME: 2min [id number] # of spot films: 6 Spot fluoroscopic images demonstrate osteopenia. Mild lumbar curve. Cholecystectomy clips. Multilevel degenerative disc disease with disc space narrowing throughout the lumbar spine. Aortic calcificatio n. Dense vascular calcification. Please see CT myelogram report for additional detail. IR/IR myelogram sp lumbar [id number] IMPRESSION: 1. Uncomplicated lumbar myelogram. 2. See CT report for anatomic detail.
== END 2024-04-28 09:43 | disposition home or self-care (01) ==
LOC: RAD 09:43
PROVIDERS: Visit Provider Orthopaedic Surgery
DX: M54.50 Low back pain, unspecified (principal); M79.605 Pain in left leg; M48.061 Spinal stenosis, lumbar region without neurogenic claudication; M85.88 Other specified disorders of bone density and structure, other site; M43.8X6 Other specified deforming dorsopathies, lumbar region; Z90.49 Acquired absence of other specified parts of digestive tract; M51.36 Other intervertebral disc degeneration, lumbar region
CPT/HCPCS: 62304; 72132; Q9966

== ENCOUNTER → 2024-05-04 08:23 | Outpatient (BNVA) | payer MEDICARE, SELFPAY | PROVIDERS: Visit Provider Orthopaedic Surgery | DX: M48.062 Spinal stenosis, lumbar region with neurogenic claudication (principal) | CPT/HCPCS: 36415; 80053; 81003; 81015; 85025; 99214 ==

== ENCOUNTER 2024-05-28 05:42 | Day surgery (SDC) | payer MEDICARE, SELFPAY ==
[2024-05-28] VITALS (11 sets, daily range): BP systolic 121–168; BP diastolic 70–101; PULSE 57–78; RESP 11–20; TEMP 36.3–36.5; O2SAT 93–98; BMI 46.0
--- NOTE | 2024-05-28 06:16 | ANES.PREANE2 ---
Pre-Anesthetic Assessment Height/Weight: Height 5 ft 3 in Preop Diagnosis: Lumbar stenosis with neurogenic claudication Operation Date: 05/28/24 07:00 Proposed Procedures p Lumbar Spine Decompression Lumbar Decompression(Not Applicable) - Fan Allen, Familial anesthetic complications: none Social No alcohol and No tobacco Exam alert, oriented x 3 and regular rate & rhythm Diminished breath sounds bilaterally Airway Submandibular: within normal limits Cervical ROM: Other (Limited cervical range of motion) Mallampati: Class III Dentition: false Anesthetic Plan ASA status: 3 Anesthesia: General Other: No prior issues with anesthesia NPO since midnight Significant past medical history including: GERD CAD, echo 04/2024 showing dilated left ventricle with EF 30 to 35%. Moderate to severe global hypokinesis. Mild to moderate mitral regurgitation. No changes since 2021 echo Negative stress test 04/2024 EKG showing NSR Hypertension on carvedilol, sacubitril?valsartan On chronic Lasix Type 2 diabetes, on tirzepatide. Most recently taken 2 weeks COPD, controlled with inhalers Labs 05/04 reviewed and acceptable for surgery today Leg weakness on left Plan for GETA Medications/Allergies Home Medications Medication Instructions Recorded Confirmed Last Taken Type ascorbic acid (vitamin C) 500 mg 500 mg PO DAILY 10/05/19 05/27/24 09/12/22 05:00 History capsule aspirin 81 mg tablet,delayed 81 mg PO DAILY 10/05/19 05/27/24 05/22/24 History release (Adult Low Dose Aspirin) hydrocodone 10 mg-acetaminophen 1 tab PO Q6H PRN Pain 10/05/19 05/28/24 05/28/24 04:45 History 325 mg tablet vitamin B complex (B 1 tab PO DAILY@0800 10/05/19 05/27/24 05/27/24 History Complex-Vitamin B12 tablet) diphenhydramine 25 1 tab PO Q4H PRN pain/sleep 02/10/21 05/27/24 04/11/22 History mg-acetaminophen 500 mg tablet (Tylenol PM Extra Strength) multivitamin 1 tab PO DAILY ##0 02/10/21 05/27/24 05/27/24 History magnesium 250 mg tablet 250 mg PO DAILY 06/25/21 05/27/24 05/27/24 History pen needle, diabetic 31 gauge x #100 ea 01/21/23 05/04/24 Unknown Rx 5/16 (Comfort EZ Pen Stanton) shoulder immobilizer #1 ea 02/05/23 05/04/24 Unknown Rx nitroglycerin 0.4 mg sublingual 0.4 mg sublingual Q5M PRN chest 03/26/23 05/27/24 Unknown Rx tablet pain #30 tabs carvedilol 6.25 mg tablet 6.25 mg PO BID #180 tabs 09/24/23 05/27/24 05/27/24 Rx albuterol sulfate 90 mcg/actuation 2 puff inhalation Q6H PRN 02/18/24 05/27/24 Unknown Rx aerosol inhaler (ProAir HFA) Shortness Of Breath #8.5 grams allopurinol 300 mg tablet 300 mg PO DAILY #30 tabs 02/18/24 05/27/24 05/27/24 Rx atorvastatin 40 mg tablet 40 mg PO BEDTIME@2200 #30 tabs 02/18/24 05/27/24 05/26/24 Rx cholecalciferol (vitamin D3) 1,250 1,250 mcg PO Q14D #2 caps 02/18/24 05/27/24 Unknown Rx mcg (50,000 unit) capsule diclofenac sodium 1 % topical gel 2 g topical .two time day PRN pain 02/18/24 05/27/24 05/27/24 Rx #100 grams docusate sodium 50 mg capsule 50 mg PO BID #60 caps 02/18/24 05/27/24 05/27/24 Rx (Colace Clear) duloxetine 60 mg capsule,delayed 60 mg PO BID@0800,2200 #60 caps 02/18/24 05/27/24 05/27/24 Rx release famotidine 20 mg tablet 20 mg PO BID@0800,2200 #60 tabs 02/18/24 05/27/24 05/27/24 Rx fluticasone propionate 50 2 spray intranasal DAILY Nasal 02/18/24 05/27/24 Unknown Rx mcg/actuation nasal Congestion #16 grams spray,suspension furosemide 40 mg tablet (Lasix) 40 mg PO BID PRN edema #60 tabs 02/18/24 05/27/24 Unknown Rx icosapent ethyl 1 gram capsule 2 g (2 x 1 gram) PO BID #120 caps 02/18/24 05/27/24 05/15/24 Rx (Vascepa) potassium chloride 20 mEq 20 meq PO DAILY #30 tabs 02/18/24 05/27/24 05/27/24 Rx tablet,extended release sacubitril 49 mg-valsartan 51 mg 1 tab PO BID #60 tabs 02/18/24 05/27/24 05/27/24 Rx tablet (Entresto) acarbose 25 mg tablet 25 mg PO TID #90 tabs 04/14/24 05/27/24 05/26/24 Rx cyanocobalamin (vitamin B-12) 1,000 mcg IM .monthly #1 mL 04/14/24 05/27/24 Unknown Rx 1,000 mcg/mL injection solution tirzepatide 2.5 mg/0.5 mL 2.5 mg (0.5 mL) SUBCUT .weekly #2 04/14/24 05/27/24 05/17/24 Rx subcutaneous pen injector mL (Mounjaro) gabapentin 100 mg capsule 100 mg PO BID #60 caps 05/11/24 05/27/24 05/27/24 Rx Allergies Allergy/AdvReac Type Severity Reaction Status Date / Time pregabalin [From Lyrica] Allergy Unknown increased Verified 05/18/24 08:47 muscle pain [facility] Anesthesia Medical History Diabetes mellitus with hyperglycemia, without long-term current use of insulin CHF (congestive heart failure) Heart block Carotid artery disease CAD (coronary artery disease) Primary generalized (osteo)arthritis Vitamin D deficiency Lumbar spinal stenosis Chronic polyneuropathy Allergic rhinoconjunctivitis, seasonal and perennial Hypertriglyceridemia Chronic pain History of carotid artery stenosis ASHD (arteriosclerotic heart disease) Essential hypertension COPD (chronic obstructive pulmonary disease) GERD (gastroesophageal reflux disease) HNP (herniated nucleus pulposus), lumbar Polyneuropathy PAD (peripheral artery disease) Osteoarthritis High risk medication use Rheumatoid arthritis with negative rheumatoid factor Generalized osteoarthritis Surgical History History of colonoscopy with polypectomy (04/12/22) H/O esophagogastroduodenoscopy (04/12/22) History of ankle surgery History of bilateral carpal tunnel release S/P cervical spinal fusion 2004 S/P carotid endarterectomy Left 2019 S/P knee replacement Bilateral 2006 S/P hysterectomy S/P angioplasty with stent 2019 right leg 2018 heart Family History Other CAD (coronary artery disease) Diabetes Social History Smoking and tobacco/nicotine status: never used tobacco/nicotine Second hand smoke exposure: No Alcohol intake: never Substance/Drug Use: never Caregiver/support person: No Lives independently: Yes Household members: spouse Marital status: Number of children: 3 Highest education level completed: 10th Grade service: No Current occupational status: disabled Pets and animals: Yes Do you think of yourself as: Straight/Heterosexual Current gender identity: Female Data Anesthesia Cardiac Studies: Echocardiogram 05/05/24 Sestamibi Stress Test (Cardiology) 05/05/24 Cardiac Event Monitor 02/21/22
--- NOTE | 2024-05-28 06:41 | W.PM.OPSUD ---
Surgery/Procedure H&P Update DATE OF PROCEDURE: May 28, 2024 DATE H&P PERFORMED: 05/18/24 H&P UPDATE INFORMATION: I have reviewed H&P completed within last 30 days, I have examined patient prior to procedure and No changes to prior documentation PREOP DIAGNOSIS: Lumbar stenosis with neurogenic claudication PLANNED PROCEDURE: Operation Date: 05/28/24 07:00 Proposed Procedures p Lumbar Spine Decompression Lumbar Decompression(Not Applicable) - Fan Allen DO
[2024-05-28] MEDS: sodium chloride 0.9% 1,000 ML 30 ML IV (06:44)
[2024-05-28 06:51] LABS: Glucose Point of Care 127 mg/dL (70-110)
[2024-05-28] MEDS: ceFAZolin 2,000 mg SDV 2000 MG IVP (07:06)
[2024-05-28] MEDS: lidocaine-epi 1% 20 mL INJ 10 ML INJECTION (07:51)
--- NOTE | 2024-05-28 08:46 | P.OP_ITS ---
Operative Report Date of procedure: May 28, 2024 Pre-op diagnosis: Lumbar stenosis with neurogenic claudication Post-op diagnosis: same Procedure done: 1. L3-4 laminectomy with partial facetectomies 2. L4-5 laminectomies with partial facetectomies Surgeon: Fan Allen DO Estimated blood loss (mL): 20 Procedure: 1. L3-4 laminectomy with partial facetectomies 2. L4-5 laminectomies with partial facetectomies Patient is brought to the operative suite. After undergoing anesthesia they are placed in the prone position. All areas of impingement are well padded. Patient is then prepped and draped in the normal sterile fashion. A skin incision is made over the L3/4 level. This is confirmed under c-arm guidance. A series of dilators are passed and the tubular retractor is docked on the L3 lamina. A bovie is used to clear the soft tissue off the lamina and the L 3/4 facet joint. A high speed ana is then used to perform the laminectomy and take down the medial aspect of the L 3/4 facet joint. A kerrison rongeure was then used to take down the remaining lamina and smooth the edge of the laminectomy up to the point where the ligamentum flavum attaches. Attention was then brought to the medial aspect of the facet joint. The remaining medial aspect of the superior and inferior aspect of the facet joint were taken down with the kerrison from the pedicle of L3 to L 4. The facet joint had significant hypertrophy. Attention was then brought to the Ligamentum Flavum. The ligament was taken down from the lamina of L3 to L4 and out medially to the remaining facet joint. The ligament was thick. The dura was then exposed. The dura was in good repair. The L3 nerve was then traced with a curette out the L3/4 foramen and found to be adequately decompressed. The L4 nerve was traced with a curette around the L4 pedicle. The lateral recess was opened with a kerrison helping to further decompress the L4 nerve. Wound is then irrigated copiously with saline and surgiflo is used to stop any bleeding. The tubular retractor is removed and the A skin incision is made over the L4/5 level. This is confirmed under c-arm guidance. A series of dilators are passed and the tubular retractor is docked on the L4 lamina. A bovie is used to clear the soft tissue off the lamina and the L 4/5 facet joint. A high speed ana is then used to perform the laminectomy and take down the medial aspect of the L 4/5 facet joint. A kerrison rongeure was then used to take down the remaining lamina and smooth the edge of the laminectomy up to the point where the ligamentum flavum attaches. Attention was then brought to the medial aspect of the facet joint. The remain ing medial aspect of the superior and inferior aspect of the facet joint were taken down with the kerrison from the pedicle of L4 to L 5. The facet joint had significant hypertrophy. Attention was then brought to the Ligamentum Flavum. The ligament was taken down from the lamina of L4 to L5 and out medially to the remaining facet joint. The ligament was thick. The dura was then exposed. The dura was in good repair. The L4 nerve was then traced with a curette out the L4/5 foramen and found to be adequately decompressed. The L5 nerve was traced with a curette around the L5 pedicle. The lateral recess was opened with a kerrison helping to further decompress the L5 nerve. Wound is then irrigated copiously with saline and surgiflo is used to stop any bleeding. The tubular retractor is removed and the wound is closed with vicryl and monocryl suture. Glue is then used to protect the wound. A sterile dressing is then placed. Patient was then placed in the supine position and transferred to the PACU in stable condition.
--- NOTE | 2024-05-28 10:06 | ANE.PACU2 ---
Inpatient post-anesthesia follow up: Airway intact: Yes Vital signs: Temperature 97.6 F Pulse Rate 66 Respiratory Rate 18 Blood Pressure 128/91 Pulse Oximetry 96 Oxygen Delivery Me thod Room Air Oxygen Flow Rate Fraction of Inspir ed Oxygen Hydration adequate: Yes Nausea and vomiting: No Pain level: 2 Mental status: Baseline
--- NOTE | 2024-05-28 12:56 | XR_ITS ---
WS: [id number] Examination: XR lumbar spine 1V [id number] Reason for Exam: OR PIC, spine decompression Date: 05/28/2024 Comparison: None. Findings: 2 intraoperative images were obtained with 7 seconds of fluoroscopy. The dap is 9.5 mGy. Images demonstrate intraoperative localization at L3-4 and L4-5. Please see intraoperative note for full explanation of the findings and the procedure.
== END 2024-05-28 10:06 | disposition home or self-care (01) ==
PROVIDERS: PCP Nurse Practitioner; Visit Provider Orthopaedic Surgery
PROC: (CPT 63005; principal; 2024-05-28 07:00)
DX: M48.062 Spinal stenosis, lumbar region with neurogenic claudication (principal)
CPT/HCPCS: 63047; 63048; 36416; 72020; 76000; 82962; J0131; J0690; J1100; J2405; J2704; J3010; J3490; J7030

== ENCOUNTER → 2024-06-10 15:45 | Outpatient (BNVA) | payer MEDICARE, SELFPAY | PROVIDERS: PCP Nurse Practitioner; Visit Provider Orthopaedic Surgery | DX: Z98.890 Other specified postprocedural states (principal) | CPT/HCPCS: 99024 ==

== ENCOUNTER → 2024-06-28 08:23 | Outpatient (BNVA) | payer MEDICARE, SELFPAY | PROVIDERS: PCP Nurse Practitioner; Visit Provider Nurse Practitioner | DX: E11.9 Type 2 diabetes mellitus without complications (principal); E55.9 Vitamin D deficiency, unspecified; E53.8 Deficiency of other specified B group vitamins | CPT/HCPCS: 80053; 80061; 82306; 82607; 83036; 84443; 85025 ==

== ENCOUNTER → 2024-07-06 10:38 | Outpatient (BNVA) | payer MEDICARE, SELFPAY | PROVIDERS: PCP Nurse Practitioner; Visit Provider Orthopaedic Surgery | DX: Z98.890 Other specified postprocedural states (principal) | CPT/HCPCS: 99024 ==

== ENCOUNTER → 2024-08-26 09:23 | Outpatient (BNVA) | payer MEDICARE, SELFPAY | PROVIDERS: PCP Nurse Practitioner; Visit Provider Orthopaedic Surgery | DX: Z98.890 Other specified postprocedural states (principal) | CPT/HCPCS: 99024 ==

== ENCOUNTER → 2024-10-04 08:49 | Outpatient (BNVA) | payer MEDICARE, SELFPAY | PROVIDERS: PCP Nurse Practitioner; Visit Provider Nurse Practitioner | DX: M10.9 Gout, unspecified (principal); E11.9 Type 2 diabetes mellitus without complications | CPT/HCPCS: 80053; 83036; 84550 ==

== ENCOUNTER → 2024-10-06 09:17 | Outpatient (BNVA) | payer MEDICARE, SELFPAY | PROVIDERS: PCP Nurse Practitioner; Visit Provider Nurse Practitioner | DX: E11.65 Type 2 diabetes mellitus with hyperglycemia (principal); N76.0 Acute vaginitis; N39.0 Urinary tract infection, site not specified | CPT/HCPCS: 81000; 82043; 87086 ==

== ENCOUNTER → 2024-10-12 13:58 | Outpatient (BNVA) | payer MEDICARE, SELFPAY | PROVIDERS: PCP Nurse Practitioner; Visit Provider Internal Medicine | DX: I25.10 Atherosclerotic heart disease of native coronary artery without angina pectoris (principal); I73.9 Peripheral vascular disease, unspecified; I45.9 Conduction disorder, unspecified; I11.0 Hypertensive heart disease with heart failure; I50.32 Chronic diastolic (congestive) heart failure; F17.200 Nicotine dependence, unspecified, uncomplicated | CPT/HCPCS: 99213 ==

== ENCOUNTER 2024-11-02 10:16 | Outpatient (CLI) | payer MEDICARE, SELFPAY ==
--- NOTE | 2024-11-02 10:20 | MM_ITS ---
WS: [id number] BILATERAL 3D TOMOSYNTHESIS DIGITAL SCREENING MAMMOGRAPHY WITH CAD CLINICAL INFORMATION: Z12.31 - Encounter for screening mammogram for malignant ... HISTORY: Screening mammogram. No current complaints. COMPARISON: 2023 TECHNIQUE: Bilateral CC and MLO views. FINDINGS: Scattered fibroglandular densities bilaterally. No suspicious focal mass, asymmetry, calcifications, or architectural distortion. No evidence of malignancy. Similar-appearing bilateral benign calcifications. Fatty lymph node LEFT axilla similar in appearance MM/MM [facility] tomosynthesis [id number] IMPRESSION: DENSITY: There are scattered areas of fibroglandular density. BI-RADS: 2 - Benign. FOLLOW UP: 1 Year Follow-up Recommend return to annual screening mammography.
== END 2024-11-02 10:17 | disposition home or self-care (01) ==
LOC: MOBLMAM 10:18
PROVIDERS: PCP Nurse Practitioner; Visit Provider Nurse Practitioner
DX: Z12.31 Encounter for screening mammogram for malignant neoplasm of breast (principal); R92.323 Mammographic fibroglandular density, bilateral breasts; R92.1 Mammographic calcification found on diagnostic imaging of breast; R59.0 Localized enlarged lymph nodes
CPT/HCPCS: 77063; 77067

== ENCOUNTER → 2024-12-31 08:01 | Outpatient (BNVA) | payer MEDICARE, SELFPAY | PROVIDERS: PCP Nurse Practitioner; Visit Provider Nurse Practitioner | DX: E61.1 Iron deficiency (principal); E11.9 Type 2 diabetes mellitus without complications; E55.9 Vitamin D deficiency, unspecified; E11.65 Type 2 diabetes mellitus with hyperglycemia; D64.9 Anemia, unspecified | CPT/HCPCS: 80053; 80061; 82306; 82607; 83036; 84443; 85025 ==

== ENCOUNTER → 2025-04-08 08:05 | Outpatient (BNVA) | payer MEDICARE, SELFPAY | PROVIDERS: PCP Nurse Practitioner; Visit Provider Nurse Practitioner | DX: E11.9 Type 2 diabetes mellitus without complications (principal) | CPT/HCPCS: 80053; 80061; 82607; 83036; 84443; 85025 ==

== ENCOUNTER → 2025-04-12 14:45 | Outpatient (BNVA) | payer MEDICARE, SELFPAY | PROVIDERS: PCP Nurse Practitioner; Visit Provider Internal Medicine | DX: I25.118 Atherosclerotic heart disease of native coronary artery with other forms of angina pectoris (principal); I11.0 Hypertensive heart disease with heart failure; I50.32 Chronic diastolic (congestive) heart failure; I73.9 Peripheral vascular disease, unspecified; I45.9 Conduction disorder, unspecified; Z79.82 Long term (current) use of aspirin; Z95.5 Presence of coronary angioplasty implant and graft; Z87.891 Personal history of nicotine dependence | CPT/HCPCS: 99214 ==

== ENCOUNTER 2025-04-21 11:27 | Emergency (ER) | payer MEDICARE, SELFPAY ==
[2025-04-21 11:33] VITALS: BP 168/82; PULSE 76; RESP 16; TEMP 36.4; O2SAT 97; BMI 44.1
--- NOTE | 2025-04-21 12:10 | ED_ITS ---
HPI - Abdominal Pain 2 General: Chief Complaint: Abdominal Pain Stated Complaint: Lower R ABD pain Time Seen by Provider: 04/21/25 11:46 History of Present Illness: 69-year-old female presents emergency ro om complaining of right lower quadrant abdominal pain. Going off for the last 3 to 4 days intermittently no dysuria urgency or frequency no hematuria. She has had some loose stools no davdi diarrhea no hematochezia or melena. Patient previously has had cholecystectomy as well as appendectomy. Associated Symptoms: Reports nausea; Denies chills, coffee ground emesis, constipation, diarrhea, dysuria, fever(s), hematochezia, hematemesis, melena and vomiting Related Data Home Medications ?Medication ?Instructions ?Recorded ?Confirmed ascorbic acid (vitamin C) 500 mg 500 mg PO DAILY 10/0504/21/25 capsule aspirin 81 mg tablet,delayed 81 mg PO DAILY 10/05/19 0 04/21/25 release (Adult Low Dose Aspirin) diphenhydramine 25 1 tab PO QPM PRN pain/sleep 02/10/21 04/21/25 mg-acetaminophen 500 mg tablet (Tylenol PM Extra Strength) multivitamin 1 tab PO DAILY ##0 02/10/21 04/21/25 budesonide 0.5 mg/2 mL suspension 0.5 mg inhalation BI D PRN 04/21/25 04/21/25 for nebulization (Pulmicort) Shortness Of Breath carvedilol 6.25 mg tablet 6.25 mg PO BID 04/21/2503/24 furosemide 40 mg tablet (Lasix) 40 mg PO DAILY PRN silvia ma 04/21/25 04/21/25 hydrocodone 10 mg-acetaminophen 1 - 2 tab PO .Q4-6H DC N Pain 04/21/25 04/21/25 325 mg tablet levocetirizine 5 mg tablet 5 mg PO DAILY PRN allergies 04/21/25 04/21/25 vitamin B complex 1 tab PO DAILY 04/21/2503/24 Previous Rx's ?Medication ?Instructions ?Recorded nitroglycerin 0.4 mg sublingual 0.4 mg sublingual Q5M PRN chest 03/26/23 tablet pain #30 tabs albuterol sulfate 2.5 mg/3 mL 2.5 mg (3 mL) inhalation Q6H PRN 01/12/25 (0.083 %) solution for nebulization shortness of breat h or wheezing #75 mL diclofenac sodium 1 % topical gel 2 g topical .two katia e day PRN pain 02/18/25 #100 grams albuterol sulfate 90 mcg/actuation 2 puff inhalation Q 6H PRN 04/11/25 aerosol inhaler Shortness Of Breath #8.5 gra ms allopurinol 300 mg tablet 300 mg PO DAILY #30 tabs atorvastatin 40 mg tablet 40 mg PO BEDTIME@2200 #30 ta bs 04/11/25 budesonide-formoterol HFA 160 2 puff inhalation Q12H # 10.2 grams 04/11/25 mcg-4.5 mcg/actuation aerosol inhaler (Symbicort) cholecalciferol (vitamin D3) 1,250 1,250 mcg PO Q14D # 2 caps 04/11/25 mcg (50,000 unit) capsule docusate sodium 50 mg capsule 50 mg PO BID #60 caps (Colace Clear) duloxetine 60 mg capsule,delayed 60 mg PO BID@0800,220 0 #60 caps 04/11/25 release evolocumab 140 mg/mL subcutaneous 140 mg SUBCUT .every 14 days #2 mL 04/11/25 pen injector (Neptali Chambers) famotidine 20 mg tablet 20 mg PO BID@0800,2200 #60 t abs 04/11/25 fluticasone propionate 50 2 spray intranasal DAILY Sg al 04/11/25 mcg/actuation nasal Congestion #16 grams spray,suspension icosapent ethyl 1 gram capsule 2 g (2 x 1 gram) PO BID #120 caps 04/11/25 (Vascepa) levothyroxine 25 mcg tablet 25 mcg PO DAILY #30 tabs 0 04/11/25 (Synthroid) sacubitril 49 mg-valsartan 51 mg 1 tab PO BID #60 tabs 04/11/25 tablet (Entresto) tirzepatide 7.5 mg/0.5 mL 7.5 mg (0.5 mL) SUBCUT .week ly #2 04/11/25 subcutaneous pen injector mL (Momartha) Allergies Allergy/AdvReac Type Severity Reaction Status Date / Time pregabalin (From Lyrica) Allergy Unknown increased Verified 04/12/25 15:08 muscle pain Review of Systems 2 Const: Denies: fever(s) or chills Card: Denies: chest pain Resp: Denies: dyspnea GI: Reports: abdominal pain and nausea; Denies: vomiting, hematemesis, coffee ground emesis, diarrhea, constipation, hematochezia or melena : Denies: dysuria, urinary frequency or urinary urgency Musc: Denies: neck pain or back pain Skin/Breast: Denies: rash PFSH ED 2 PFSH: Medical History Adult onset hypothyroidism Diabetes mellitus with hyperglycemia, without long-term current use of insulin CHF (congestive heart failure) Heart block Carotid artery disease CAD (coronary artery disease) Primary generalized (osteo)arthritis Vitamin D deficiency Lumbar spinal stenosis Chronic polyneuropathy Allergic rhinoconjunctivitis, seasonal and perennial Hypertriglyceridemia Chronic pain History of carotid artery stenosis ASHD (arteriosclerotic heart disease) Essential hypertension COPD (chronic obstructive pulmonary disease) GERD (gastroesophageal reflux disease) HNP (herniated nucleus pulposus), lumbar Polyneuropathy PAD (peripheral artery disease) Osteoarthritis High risk medication use Rheumatoid arthritis with negative rheumatoid factor Generalized osteoarthritis Surgical History History of bilateral cataract extraction [address] Dodd History of laminectomy L3-4 laminectomy with partial facetectomies L4-L5 05/27/24 [facility] Dr. Allen History of colonoscopy with polypectomy (04/12/22) H/O esophagogastroduodenoscopy (04/12/22) History of ankle surgery History of bilateral carpal tunnel release S/P carotid endarterectomy Left 2019 S/P knee replacement Bilateral 2006 S/P hysterectomy S/P angioplasty with stent 2019 right leg 2018 heart Family History Other CAD (coronary artery disease) Diabetes Social History Smoking and tobacco/nicotine status: former use of tobacco/nicotine Second hand smoke exposure: No Alcohol intake: never Substance/Drug Use: never Caregiver/support person: No Lives independently: Yes Household members: spouse Marital status: Number of children: 3 Highest education level completed: 10th Grade service: No Current occupational status: disabled Pets and animals: Yes Do you think of yourself as: Straight/Heterosexual Current gender identity: Female Physical Exam 2 Const: COMMON NORMALS: no acute distress GENERAL APPEARANCE: cooperative and comfortable ORIENTATION/CONSCIOUSNESS: Yes awake, Yes oriented to person, Yes oriented to place and Yes oriented to time HENMT: COMMON NORMALS: normocephalic, atraumatic and hearing grossly normal bilaterally HEAD & SCALP: normocephalic and atraumatic Resp: COMMON NORMALS: normal respiratory effort, No retractions, No use of accessory muscles and clear to auscultation bilaterally AUSCULTATION: clear to auscultation bilaterally Cardio: COMMON NORMALS: regular rate, regular rhythm and No murmurs present (Cardio) RATE: regular rate RHYTHM: regular rhythm GI: COMMON NORMALS: No hepatosplenomegaly present AUSCULTATION: Yes normoactive bowel sounds PALPATION: Yes Tenderness to palpation present (GI) (Right lower quadrant), No Guarding due to palpation present (GI) and Yes No hepatosplenomegaly present Extremity: COMMON NORMALS: normal to inspection, capillary refill normal, no clubbing, cyanosis or edema, no calf tenderness and no pedal edema Neuro: SENSORIUM/ORIENTATION: Yes oriented to person, Yes oriented to place and Yes oriented to time Skin: COMMON NORMALS: no rashes or lesions noted GENERAL SKIN EXAM: no rashes or lesions noted Course 2 Vital Signs: Vital signs: Vital Signs Temperature 97.6 F 04/21/25 11:33 Pulse Rate 65 04/21/25 14:34 Respiratory Rate 16 04/21/25 14:34 Blood Pressure 103/62 04/21/25 14:34 Pulse Oximetry 98 04/21/25 14:34 Oxygen Delivery Me thod Room Air 04/21/25 11:33 MDM - Abdominal Pain Medical Decision Making Labs and imaging reviewed no significant abnormality found CT did not show any acute pathology laboratory tests otherwise unremarkable discharge patient will GlucoDock 24 to 48 hours advance as tolerated. If has persistent discomfort follow-up with primary care can evaluate for need for endoscopy Medical Records I reviewed the patient's medical records. Lab Data I reviewed the patient's lab results. 04/21/25 12:22 04/21/25 12:22 Labs/Radiology: Radiology Impressions Abdomen/Pelvis CT 04/21/25 12:36 IMPRESSION: 1. No hydronephrosis in either kidney. No obstructing renal or ureteral calculi. 2. Sigmoid diverticulosis. No evidence of acute diverticulitis. 3. Prior cholecystectomy, appendectomy and hysterectomy. 4. Stable LEFT adrenal adenoma described above. 5. No other acute findings. Laboratory Results WBC 5.67 10^3/uL (3.29-11.43) 04/21/25 12:22 RBC 3.75 10^6/uL (3.85-5.65) L 04/21/25 12:22 Hgb 12.50 g/dL (11.27-16.99) 04/21/25 12:22 Hct 37.8 % (36-47) 04/21/25 12:22 MCV 100.8 fl (85-98) H 04/21/25 12:22 MCH 33.3 pg (27-33) H 04/21/25 12:22 MCHC 33.1 g/dL (30-55) 04/21/25 12:22 RDW 13.9 % (12.1-15.1) 04/21/25 12:22 Plt Count 220 10^3/cmm (157-399) 04/21/25 12:22 MPV 9.7 fL (7.4-10.4) 04/21/25 12:22 Neut % (Auto) 57.6 % 04/21/25 12:22 Lymph % (Auto) 31.0 % 04/21/25 12:22 [place] % (Auto) 8.5 % 04/21/25 12:22 Eos % (Auto) 1.6 % 04/21/25 12:22 Baso % (Auto) 1.1 % 04/21/25 12:22 Neut # (Auto) 3.27 10^3/uL (1.8-7.7) 04/21/25 12:22 Lymph # (Auto) 1.8 10^3/uL (0.8-4.8) 04/21/25 12:22 [place] # (Auto) 0.5 10^3/uL (0.2-0.9) 04/21/25 12:22 Eos # (Auto) 0.1 10^3/uL (0.0-0.8) 04/21/25 12:22 Baso # (Auto) 0.1 10^3/uL (0.0-0.1) 04/21/25 12:22 Nucleated RBC % (auto) 0 % 04/21/25 12:22 Nucleated RBCs # 0.0 /100WBC 04/21/25 12:22 Sodium 134 mmol/L (136-145) L 04/21/25 12:22 Potassium 4.3 mmol/L (3.5-5.1) 04/21/25 12:22 Chloride 100 mmol/L (98-107) 04/21/25 12:22 Carbon Dioxide 21 mmol/L (22-29) L 04/21/25 12:22 Anion Gap 17.3 (5-19) 04/21/25 12:22 BUN 10 mg/dL (8-23) 04/21/25 12:22 Creatinine 0.8 mg/dL (0.5-0.9) 04/21/25 12:22 GFR Calculation 71.5 mL/min (90-130) L 04/21/25 12:22 Glucose 142 mg/dL (65-115) H 04/21/25 12:22 Calculated Osmolality 279 mOsm/kg (285-295) L 04/21/25 12:22 Calcium 8.8 mg/dL (8.5-10.5) 04/21/25 12:22 Total Bilirubin 0.2 mg/dL (0.15-1.2) 04/21/25 12:22 AST 17 U/L (0-32) 04/21/25 12:22 ALT 10 U/L (0-33) 04/21/25 12:22 Alkaline Phosphatase 85 U/L (35-105) 04/21/25 12:22 Total Protein 6.2 g/dL (6.6-8.7) L 04/21/25 12:22 Albumin 3.6 g/dL (3.5-5.2) 04/21/25 12:22 Globulin 2.6 g/dL (1.3-4.6) 04/21/25 12:22 Lipase 23 U/L (13-60) 04/21/25 12:22 Urine Color Yellow (Yellow) 04/21/25 12:36 Urine Appearance Cloudy (CLEAR) A 04/21/25 12:36 Urine pH 6.5 (5-7) 04/21/25 12:36 Ur Specific [place] 1.017 (1.005-1.030) 04/21/25 12:36 Urine Protein Negative (Negative) 04/21/25 12:36 Urine Glucose (UA) Negative (Normal) 04/21/25 12:36 Urine Ketones Negative (Negative) 04/21/25 12:36 Urine Blood Negative (Negative) 04/21/25 12:36 Urine Nitrate Negative (Negative) 04/21/25 12:36 Urine Bilirubin Negative (Negative) 04/21/25 12:36 Urine Urobilinogen 1.0 mg/dL (Negative) 04/21/25 12:36 Ur Leukocyte Esterase Trace (Negative) A 04/21/25 12:36 Urine RBC 0-2 /hpf (0-2) 04/21/25 12:36 Urine WBC 6-10 /hpf (0-5) 04/21/25 12:36 Ur Squamous Epith Cells 11-20 /hpf (0-5) H 04/21/25 12:36 Amorphous Sediment Not Reportable 04/21/25 12:36 Urine Bacteria 1+ /hpf (NONE) H 04/21/25 12:36 Hyaline Casts 6.17 /lpf 04/21/25 12:36 All radiology interpretation(s) finalized by discharge Discharge Plan Discharge Patient Disposition: Home Clinical Impression: Abdominal pain Condition: Stable Prescriptions: No Action aspirin [Adult Low Dose Aspirin] 81 mg tablet,delayed release (DR/EC) 81 mg PO DAILY ascorbic acid (vitamin C) 500 mg capsule 500 mg PO DAILY Entresto 49-51 mg tablet 1 tab PO BID Qty: 60 5RF Mounjaro 7.5 mg/0.5 mL pen injector 7.5 mg SUBCUT .weekly Qty: 2 2RF Rx Instructions: Mondays allopurinol 300 mg tablet 300 mg PO DAILY Qty: 30 5RF albuterol sulfate 90 mcg/actuation HFA aerosol inhaler 2 puff INHALATION Q6H PRN (Reason: Shortness Of Breath) Qty: 8.5 5RF atorvastatin 40 mg tablet 40 mg PO BEDTIME@2200 Qty: 30 5RF budesonide-formoterol [Symbicort] 160-4.5 mcg/actuation HFA aerosol inhaler 2 puff inhalation Q12H Qty: 10.2 2RF cholecalciferol (vitamin D3) 1,250 mcg (50,000 unit) capsule 1,250 mcg PO Q14D Qty: 2 5RF Rx Instructions: 1st and 15th Colace Clear 50 mg capsule 50 mg PO BID Qty: 60 5RF duloxetine 60 mg capsule,delayed release(DR/EC) 60 mg PO BID@0800,2200 Qty: 60 5RF Repatha SureClick 140 mg/mL pen injector 140 mg SUBCUT .every 14 days Qty: 2 2RF Rx Instructions: 1st and 15th famotidine 20 mg tablet 20 mg PO BID@0800,2200 Qty: 60 5RF fluticasone propionate 50 mcg/actuation spray,suspension 2 spray INTRANASAL DAILY Qty: 16 5RF icosapent ethyl [Vascepa] 1 gram capsule 2 g PO BID Qty: 120 5RF levothyroxine [Synthroid] 25 mcg tablet 25 mcg PO DAILY Qty: 30 2RF albuterol sulfate 2.5 mg /3 mL (0.083 %) solution for nebulization 2.5 mg inhalation Q6H PRN (Reason: shortness of breath or wheezing) Qty: 75 2RF nitroglycerin 0.4 mg tablet, sublingual 0.4 mg sublingual Q5M PRN (Reason: chest pain) Qty: 30 3RF Rx Instructions: do not exceed 3 doses per episode diclofenac sodium 1 % gel 2 g topical .two time day PRN (Reason: pain) Qty: 100 2RF Rx Instructions: apply to joints hands, arms, legs multivitamin Tablet 1 tab PO DAILY Qty: 0 diphenhydramine-acetaminophen [Tylenol PM Extra Strength] 25-500 mg Tablet 1 tab PO QPM PRN (Reason: pain/sleep) hydrocodone-acetaminophen 10-325 mg tablet 1 - 2 tab PO .Q4-6H PRN (Reason: Pain) vitamin B complex Tablet 1 tab PO DAILY furosemide [Lasix] 40 mg tablet 40 mg PO DAILY PRN (Reason: edema) carvedilol 6.25 mg tablet 6.25 mg PO BID Rx Instructions: WITH A MEAL / FOOD budesonide [Pulmicort] 0.5 mg/2 mL suspension for nebulization 0.5 mg inhalation BID PRN (Reason: Shortness Of Breath) levocetirizine 5 mg tablet 5 mg PO DAILY PRN (Reason: allergies) Discharge Orders: Discharge ED (Routine); Ordered 04/21/25 Ordered By: Reginaldo Diehl Referrals: Amy Morris FNP-C [Primary Care Provider, Family Practice] Patient Instructions: Abdominal Pain (ED), Opioid Safety, Pain Management, Patient Portal & Linh Instructions Activity Restrictions/Additional Instructions: [facility]. It is very important that you follow up as instructed or that you return to the Emergency Department should you have concerns or if your condition changes or worsens in any way. You were seen in the emergency room for abdominal pain. Your laboratory tests did not show acute abnormalities urine was normal CT showed a stable adrenal adenoma that had been present previously this is thought to be benign by radiology. No acute finding was noted on your labs or imaging. Recommend clear liquid diet for 2 to 3 days if your discomfort persists follow-up with your primary care doctor Print Language: Croatian Coding Level of Care Code ED Central Office Worker for Poonam Chance
--- NOTE | 2025-04-21 12:14 | PC.NURSE ---
when pt attempted to urinate in cup, pt spilled urine. have re-educated pt on need for sample and straight catheterization
[2025-04-21 12:15] VITALS: BP 154/85; PULSE 67; O2SAT 97
[2025-04-21 12:35] LABS: Hematocrit 37.8 % (36-47); Hemoglobin 12.50 g/dL (11.27-16.99); Mean Corpuscular HGB Conc 33.1 g/dL (30-55); Mean Corpuscular Hemoglobin 33.3 pg (27-33); Mean Corpuscular Volume 100.8 fl (85-98); Nucleated Red Blood Cells % 0 %; Platelet Count 220 10^3/cmm (157-399); Red Blood Count 3.75 10^6/uL (3.85-5.65); White Blood Count 5.67 10^3/uL (3.29-11.43)
--- NOTE | 2025-04-21 12:36 | CT_ITS ---
WS: [id number] CT ABDOMEN PELVIS TECHNIQUE: Noncontrast CT of the abdomen and pelvis with coronal and sagittal reformatted images. CLINICAL INFORMATION: Abdominal pain COMPARISON: None. DLP: 1113.[address] scans at [facility] use at least one of these dose optimization techniques: automated exposure control; mA and/or kV adjustment per patient size (includes targeted exams where dose is matched to clinical indication); or iterative reconstruction. FINDINGS: Prior cholecystectomy and hysterectomy. No obstructing renal or ureteral calculi. No hydronephrosis in either kidney. Stable LEFT adrenal adenoma with calcification measuring 3.6 x 3.3 cm. Lung bases are well aerated. Small esophageal hiatal hernia. Noncontrast pancreas is normal. Splenic artery calcification. Dense vascular calcification. Normal caliber abdominal aorta. Tiny fat-containing umbilical hernia. Sigmoid diverticulosis. No evidence of acute diverticulitis. Prior appendectomy. Advanced spondylitic changes lumbar spine. Advanced degenerative arthritis both hips. CT/CT abdomen pelvis wo con [id number] IMPRESSION: 1. No hydronephrosis in either kidney. No obstructing renal or ureteral calcul i. 2. Sigmoid diverticulosis. No evidence of acute diverticulitis. 3. Prior cholecystectomy, appendectomy and hysterectomy. 4. Stable LEFT adrenal adenoma described above. 5. No other acute findings.
[2025-04-21 12:43] LABS: Glucose Urine UA Negative (Normal); Nitrate Urine Negative (Negative); Specific Gravity, Urine 1.017 (1.005-1.030)
[2025-04-21 12:45] LABS: Add Urine Microscopic? YES
[2025-04-21 12:55] LABS: Alanine Aminotransferase 10 U/L (0-33); Albumin Level 3.6 g/dL (3.5-5.2); Alkaline Phosphatase 85 U/L (35-105); Aspartate Amino Transferase 17 U/L (0-32); Blood Urea Nitrogen 10 mg/dL (8-23); Calcium 8.8 mg/dL (8.5-10.5); Carbon Dioxide 21 mmol/L (22-29); Chloride 100 mmol/L (98-107); Creatinine Clr Calc Pharmacy 82.5373; Globulin 2.6 g/dL (1.3-4.6); Glucose 142 mg/dL (65-115); Lipase 23 U/L (13-60); Osmolality Calculated 279 mOsm/kg (285-295); Sodium 134 mmol/L (136-145); Total Protein 6.2 g/dL (6.6-8.7)
[2025-04-21 12:56] LABS: Anion Gap 17.3 (5-19); Potassium 4.3 mmol/L (3.5-5.1)
[2025-04-21 13:06] VITALS: BP 157/85; PULSE 70; O2SAT 98
--- NOTE | 2025-04-21 13:21 | PC.NURSE ---
this nurse assumed pt care from LLOYD Melton at 1300.
[2025-04-21 14:34] VITALS: BP 103/62; PULSE 65; RESP 16; O2SAT 98
--- OUTSIDE RECORDS SUMMARY | 2025-04-22 05:18 | XMS_ITS | Encounter Summary ---
Author Organization [facility] Address [address] [place] [address] Care Team Providers Care Home Health Care Worker Name Role Phone Brianna Lowe NP Primary Care Provider [phone] Reason for Visit * Reason Onset Date Comments 03/28/25 Brandon Appt Needs Cancelled Encounter Details Date Type Department Care Team (Late st Contact Info) Description 03/21/2025 Telephone [facility] [address] [facility] [address] [place] [phone] Darrius Taylor MD [address] [facility] [address] [place] [phone] 03/28/25 Brandon Appt Needs Cancelled Social History Tobacco Use Types Packs/Day Years Used Date Smoking Tobacco: Every Day Cigarettes Alcohol Use Standard Drinks/Week Comments No 0 (1 standard drink = 0.6 oz pur e alcohol) Comments Unknown Sex and Gender Information Value Date Recorded Sex Assigned at Not on file 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 Pt will call back at a later date to reschedule - thank you. Madiha Giraldo, [facility] documented in this encounter Plan of Treatment Not on file documented as of this encounter Visit Diagnoses Not on filedocumented in this encounter Care Teams Home Health Care Worker Relationship Specialty Start Date End Date Brianna Lowe NP [facility] [place] [address] PCP - General Family Practice 05/01/10 documented as of this encounter
--- OUTSIDE RECORDS SUMMARY | 2025-04-22 05:18 | XMS_ITS | Encounter Summary ---
Author Organization [facility] Address [address] [place] [address] Care Team Providers Care Loan Adviser Name Role Phone Brianna Lowe NP Primary Care Provider Reason for Visit * Reason Onset Date Comments Returning missed calls 01/17/2025 Encounter Details Date Type Department Care Team (Late st Contact Info) Description 01/17/2025 Telephone [facility] [address] [facility] [address] [place] [phone] Darrius Taylor MD [address] [facility] [address] [place] [phone] Returning missed calls Social History Tobacco Use Types Packs/Day Years Used Date Smoking Tobacco: Every Day Cigarettes Alcohol Use Standard Drinks/Week Comments No 0 (1 standard drink = 0.6 oz pur e alcohol) Comments Unknown Sex and Gender Information Value Date Recorded Sex Assigned at Not on file 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 Ashley Jerome, [facility] documented in this encounter Plan of Treatment Not on file documented as of this encounter Visit Diagnoses Not on filedocumented in this encounter Care Teams Loan Adviser Relationship Specialty Start Date End Date Brianna Lowe NP [address] [place] [address] PCP - General Family Practice 05/01/10 documented as of this encounter
--- OUTSIDE RECORDS SUMMARY | 2025-04-22 05:19 | XMS_ITS | Clinical Summary ---
Author Organization [facility] Address [address] [place]: Epic Prelude ADT [place]E [place] [address] Care Team Providers Care Macaroni Press Operator Name Role Phone Brianna Lowe Sanjuanita CHAVEZ Primary Care Provider [phone] Allergies No known active allergies Medications albuterol sulfate HFA 90 mcg/actuation aerosol inhaler INHALE 2 PUFFS INTO LUNGS EVERY 6 HOURS NEEDED FOR SHORTNESS OF BREATH 5 Active allopurinoL (ZYLOPRIM) 300 mg tablet Take 300 mg by mouth daily. Active aspirin (ECOTRIN EC) 81 mg Tablet, Delayed Release (E.C.) orally as directed Active atorvastatin (LIPITOR) 40 mg tablet TAKE ONE TABLET BY MOUTH AT BEDTIME AT 10PM Active carvediloL (COREG) 6.25 mg tablet TAKE ONE TABLET BY MOUTH TWICE DAILY - MUST ADMINSITER WITH A MEAL / FOOD Active diclofenac sodium (VOLTAREN) 1 % gel APPLY TWO GRAMS TOPICALLY TWICE DAILY NEEDED FOR PAIN; APPLY TO JOINTS, HANDS, ARMS, LEGS 5 Active Colace Clear 50 mg capsule Take 1 Capsule by mouth 2 times daily. 5 Active DULoxetine (CYMBALTA) 60 mg Capsule, Delayed Release(E.C.) TAKE ONE CAPSULE BY MOUTH TWICE DAILY AT 8AM AND 10PM 5 Active Repatha SureClick 140 mg/mL Pen Injector INJECT 140MG UNDER SKIN EVERY 14 DAYS 5 Active famotidine (PEPCID) 20 mg tablet TAKE ONE TABLET BY MOUTH TWICE DAILY AT 8AM AND 10PM Active fluticasone propionate (FLONASE) 50 mcg/spray [place], Suspension nasal inhaler USE 2 SPRAYS IN EACH NOSTRIL DAILY FOR NASAL CONGESTION Active furosemide (LASIX) 40 mg tablet TAKE ONE TABLET BY MOUTH TWICE DAILY NEEDED FOR EDEMA Active gabapentin (NEURONTIN) 100 mg capsule 2 times daily. Acti ve Vascepa 1 gram Capsule Take 2 Capsules by mouth 2 times daily. 5 Active Entresto 49-51 mg Tablet Take 1 Tablet by mouth 2 times daily. Active Mounjaro 5 mg/0.5 mL Pen Injector 5 Active empagliflozin (JARDIANCE) 10 mg tablet Take 1 Tablet (10 mg) by mouth daily in the morning. 90 Tablet 3 5 Active isosorbide mononitrate (IMDUR) 30 mg Extended Release 24 hour tablet Take 1 Tablet (30 mg) by mouth daily in the morning. 30 Tablet 6 5 Active spironolactone (ALDACTONE) 25 mg tablet Take 0.5 Tablets (12.5 mg) by mouth daily. 30 Tablet 6 5 Active Active Problems Problem Noted Date Diagnosed Date TKA left 07/25/2010 Overview (01/18/2021): Left Encounters Date Type Department Care Team Description 04/06/2025 External Device Data [facility] ABSTRACTION Provider, Abstract 04/05/2025 External Device Data [facility] ABSTRACTION Provider, Abstract 03/21/2025 Telephone [place] [address] [place] [address] Darrius Taylor MD 03/28/25 Brandon Appt Needs Cancelled 03/15/2025 External Device Data [facility] ABSTRACTION Provider, Abstract 02/09/2025 External Device Data [facility] ABSTRACTION Provider, Abstract 02/08/2025 External Device Data [facility] ABSTRACTION Provider, Abstract from Last 3 Months Social History Tobacco Use Types Packs/Day Years Used Date Smoking Tobacco: Every Day Cigarettes Tobacco Cessation:Ready to Q uit: Not Asked; Counseling Given: Not Answered Alcohol Use Standard Drinks/Week Comments No 0 (1 standard drink = 0.6 oz pur e alcohol) Comments Unknown Sex and Gender Information Value Date Recorded Sex Assigned at Not on file 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 Gender Identity Not on file Sexual Orientation Not on file Last Filed Vital Signs Vital Sign Reading Time Taken Comments Blood Pressure 128/70 12/27/2024 12:57 PM CDT Pulse 69 12/27/2024 12:57 PM CDT Temperature - - Respiratory Rate - - Oxygen Saturation 95% 12/27/2024 12:57 PM CDT Inhaled Oxygen Concentration - - Weight 114.3 kg (252 lb) 12/27/2024 12:57 PM CDT Height 160 cm (5' 3 ) 12/27/2024 12:57 PM CDT Body Mass Index 44.64 12/27/2024 12:57 PM CDT Plan of Treatment Health Maintenance Due Date Last Done Comments DTAP/TDAP/TD VACCINES (1 - Tdap) 1976 PNEUMOCOCCAL VACCINE 50+ YEA RS (1 of 2 - PCV) 1976 BREAST CANCER SCREENING 1997 COLORECTAL SCREENING 2002 Colorectal Cancer Screening 2002 FIT-DNA Q 3 years 2002 FIT/FOBT Q 1 year 2002 Flex Sig/CT Colonography Q 5 years 2002 ZOSTER VACCINE (1 of 2) 2007 RSV VACCINE (60+ or ) (1 - Risk 60-74 years 1-dose series) 2017 OSTEOPOROSIS SCREENING 2022 [place] Preventative Visit/Annual Wellness Visit 09/22/2024 COVID-19 Vaccine (2023-2 5 season) 2025 07/12/2024, 06/30/2023, 07/11/2022, Additional history exists INFLUENZA VACCINE (#1) 2025 07/05/2016 Pre-Diabetes and Diabetes Screening 10/04/2027 10/04/2024 Medical Devices Implanted Type Area Lead Software Qa Engineer Device Identifier Shelf Expiration Date Model / Serial / Lot Log [id number] - Cement - 1 - Cement Stratton G-Hv 40g [id number] Implanted:Qty: 2 on 04/25/2010 Cement Right: Knee [employer] 11/21/2011 [id number] / / [id number] Log 79520 - Cement - 1 - Cement Stratton G-Hv 40g [id number] Implanted:Qty: 1 on 07/25/2010 Cement Left: Knee [employer] 02/21/2012 [id number] / / [id number] Log 39967 - Cement - 1 - Cement Stratton G-Hv 40g [id number] Implanted:Qty: 1 on 07/25/2010 Cement Left: Knee [employer] 02/21/2012 [id number] / / [id number] Log 28985 - Biomet Vanguard Complete Knee System - 1 - Bearing Tib Vng Ps+ 10x71/75mm [id number] Implanted:Qty: 1 on 04/25/2010 Knee Right: Knee [employer] 01/20/2015 [id number] / / [id number] Log 28582 - Biomet Vanguard Complete Knee System - 1 - Button Patella 28x8mm [id number] Implanted:Qty: 1 on 04/25/2010 Knee Right: Knee [employer] 01/20/2015 [id number] / / [id number] Log 44581 - Biomet Vanguard Complete Knee System - 1 - Fem Vng Open Box 62.5mm Rt [id number] Implanted:Qty: 1 on 04/25/2010 Knee Right: Knee [employer] 02/21/2020 [id number] / / [id number] Log 64140 - Biomet Vanguard Complete Knee System - 1 - Insert I-Beam Cocr 75mm [id number] Implanted:Qty: 1 on 04/25/2010 Knee Right: Knee [employer] 03/22/2020 [id number] / / [id number] Log 63067 - Biomet Vanguard Complete Knee System - 1 - Bearing Tib Vng Ps+ 10x71/75mm [id number] Implanted:Qty: 1 on 07/25/2010 Knee Left: Knee [employer] 04/22/2015 [id number] / / [id number] Log 94405 - Biomet Vanguard Complete Knee System - 1 - Button Patella 28x8mm [id number] Implanted:Qty: 1 on 07/25/2010 Knee Left: Knee [employer] 04/22/2015 [id number] / / [id number] Log 33497 - Biomet Vanguard Complete Knee System - 1 - Fem Vng Open Box 62.5mm Lt [id number] Implanted:Qty: 1 on 07/25/2010 Knee Left: Knee [employer] 05/23/2020 [id number] / / [id number] Log 99165 - Biomet Vanguard Complete Knee System - 1 - Insert I-Beam Cocr 71mm [id number] Implanted:Qty: 1 on 07/25/2010 Knee Left: Knee [employer] 05/23/2020 [id number] / / [id number] Procedures Procedure Name Priority Date/Time Associated Diagnosis Comments HEMOGLOBIN A1C Routine 10/04/2024 from Last 3 Months or Most Recently Relevant to Health Maintenance Results * HEMOGLOBIN A1C (10/04/2024) ABSTRACTED HGB A1C 5.6 % Blood us Abstract Provider CHEMISTRY ORDERABLES Edited Re sult - Final from Last 3 Months or Most Recently Relevant to Health Maintenance Insurance [employer] [facility] Care Teams Macaroni Press Operator Relationship Specialty Start Date End Date Brianna Lowe NP [facility] [place], [place] [id number] PCP - General Family Practice 05/01/10
--- OUTSIDE RECORDS SUMMARY | 2025-04-22 05:19 | XMS_ITS | Patient Health Record ---
Author Organization [facility] [employer] Address [address] [place], [place] [id number] Care Team Providers Care Internal Affairs Commander Name Role Phone Amy Morris APN Primary Care Provider Arvind Izaguirre MD, [place] Unavailable [phone] Deirdre Amado Unavailable [phone] Allergies Allergen (clinical drug ingredient) Drug/Non Drug Allergy documented on EMR Reaction Allergy Type Onset Date Status pregabalin Lyrica breathing problems Drug Allergy Active Reason For Referral No Information Medications Medication SIG (Take, Route, Frequency, Duration) Notes Start Date End Date Status Fish Oil 500 mg 1 cap(s) orally once a day 04/02/2023 Active fluticasone nasal 50 mcg/inh 1 spray intranasally once a day Active famotidine 20 mg 1 tab orally 2 times a day Active fenofibrate 134 mg 1 cap orally once a day Active Lasix 80 mg 1 tab orally twice a day Active lidocaine topical 5% 3 patches applied topically once a day, as directed Active folic acid 1 mg 1 tab orally once a day Active gabapentin 100 mg 1 cap(s) orally 2 times a day Active DULoxetine 60 mg 1 cap orally 2 times a day Active spironolactone 25 mg ; Duration: 30 Days Active Entresto 49 mg-51 mg 1 tab orally 2 time s a day Active Isosorbide Mononitrate Extended Release 60 mg 1 tab(s) orally once a day (in the morning); Duration: 30 day(s) 12/30/2024 Active zonisamide 100 mg 3 caps po orally QHS Active Jardiance 10 mg ; Duration: 30 Days Active DilTIAZem Hydrochloride CD 360 mg/24 hours 1 cap orally once a day Active acetaminophen-hydrocodo ne 325 mg-10 mg 1-2 tabs orally Q4-6H prn pain (max 5/day; hold within 4H of planned sleep); Duration: 28 days Do not fill prior to 02/17/25. ICD-10: G89.29 12/30/2024 Active acetaminophen-hydrocodo ne 325 mg-10 mg 1-2 tabs orally Q4-6H prn pain (max 5/day; hold within 4H of planned sleep); Duration: 28 days Do not fill prior to 01/20/25. ICD-10: G89.29 12/30/2024 Active ProAir HFA 90 mcg/inh 2 puffs inhaled 4 times a day Active allopurinol 300 mg 1 tab orally once a day Active Repatha SureClick 140 mg/mL ; Duration: 28 Days Active pantoprazole 40 mg 1 tab orally once a day Active acarbose 25 mg 1 tab(s) orally 3 times a day; Duration: 30 day(s) 05/25/2024 Active predniSONE 2.5 mg 1 tab orally two katia es a day Active carvedilol 6.25 mg 1 tab(s) orally 2 times a day 10/08/2022 Active Vitamin D2 (obsolete) 50,000 intl units 1 cap orally once a week Active diclofenac topical 1% 4 grams applied topically 4 times a day, as directed Active aspirin 81 mg orally as directed Active sertraline 100 mg 1 tab orally once a day Active atorvastatin 40 mg 1 tab orally once a day, at bedtime Active Tylenol 8 HR Arthritis Pain 650 mg 2 tabs orally every 8 hours Active Mounjaro 2.5 mg/0.5 mL as directed subcutaneously once a week 05/25/2024 Active Narcan 4 mg/0.1 mL 1 spray(s) intranasally once 12/02/2023 Active acetaminophen-hydrocodo ne 325 mg-10 mg 1-2 tabs orally Q4-6H prn pain (max 5/day; hold within 4H of planned sleep); Duration: 28 days Do not fill prior to 03/17/25. ICD-10: G89.29 12/30/2024 Active methotrexate 2.5 mg as directed orally once a week Active Social History Tobacco Use: Social History Observation Description Date Details (start date - stop date) Former Smoker NA - NA Tobacco use: Question Answer Notes : former smoker When did you stop smoking? 2018 AUDIT-C (Standard) Question Answer Notes Did you have a drink containing alcohol in the p ast year? No Points 0 Interpretation Negative Problems Problem Type SNOMED Code ICD Code Onset Dates Problem Status W/U Status Risk Notes Problem Solitary sacroiliitis (967010725) Sacroiliitis, not elsewhere classified (M46.1) Active confirmed Problem Low back pain (403604332) Low back pain (M54.5) Active confirmed Problem Lumbosacral spondylosis without myelopathy (37376206) Spondylosis without myelopathy or radiculopathy, lumbar region (M47.816) Active confirmed Problem High risk drug monitoring status (678397216) custodial (current) use of opiate analgesic (Z79.891) Active confirmed Problem Anxiety disorder (963453243) Other specified anxiety disorders (F41.8) Active confirmed Problem Hypersomnia (82976108) Hypersomnia, unspecified (G47.10) Active confirmed Problem Obstructive sleep apnea syndrome (47077562) Obstructive sleep apnea (adult) (pediatric) (G47.33) Active confirmed Problem Sleep disorder (04151891) Other sleep disorders (G47.8) Active confirmed Problem Chronic pain (99407289) Other chronic pain (G89.29) Active confirmed Problem Essential hypertension (74204673) Essential (primary) hypertension (I10) Active confirmed Problem Shoulder joint pain (971608465) Pain in right shoulder (M25.511) Active confirmed Problem Acquired spondylolisthesis (330780321) Spondylolisthesi s, cervical region (M43.12) Active confirmed Problem Cervical spondylosis without myelopathy (873203759) Spondylosis without myelopathy or radiculopathy, cervical region (M47.812) Active confirmed Problem Cervicalgia (84660848) Cervicalgia (M54.2) Active confirmed Problem Long-term current use of drug therapy (146674032) 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 school teacher (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 therapy (Z79.899) Active confirmed Problem Spinal stenosis of lumbar region (59293813) Spinal stenosis, lumbar region without neurogenic claudication (M48.061) Active confirmed Problem Pain in lumbar spine (416467169) Vertebrogenic low back pain (M54.51) Active confirmed Vital Signs Temperature 97.4 degrees Fahrenheit 12/30/2024 Blood pressure diastolic 69 mm Hg 12/30/2024 Oximetry 92 % 12/30/2024 Height 63 in 12/30/2024 Blood pressure systolic 141 mm Hg 12/30/2024 Weight 253 lbs 12/30/2024 BMI 44.81 kg/m2 12/30/2024 Encounters Encounter Location Date Provider Diagnosis [facility] [employer] [address] [place], [place] [id number] 05/25/2024 Deirdre Hawk Vertebrogenic low ba ck pain M54.51 ; Other chronic pain G89.29 and Obstructive sleep apnea (adult) (pediatric) G47.33 [facility] [address] [place], [place] [id number] 07/22/2024 Kan Izaguirre Vertebrogenic low ba ck pain M54.51 ; Other chronic pain G89.29 and Obstructive sleep apnea (adult) (pediatric) G47.33 [facility] [address] [place], [place] [id number] 09/02/2024 Kan Izaguirre Vertebrogenic low ba ck pain M54.51 ; Other chronic pain G89.29 and Obstructive sleep apnea (adult) (pediatric) G47.33 [facility] [employer] [address] [place], [place] [id number] 11/18/2024 Kan Izaguirre Vertebrogenic low ba ck pain M54.51 ; Other chronic pain G89.29 and Obstructive sleep apnea (adult) (pediatric) G47.33 [facility] [address] [place], [place] [id number] 12/30/2024 Kan Izaguirre Vertebrogenic low ba ck pain M54.51 ; Other chronic pain G89.29 ; Essential (primary) hypertension I10 and Obstructive sleep apnea (adult) (pediatric) G47.33 [facility] [address] [place], [place] [id number] 06/01/2024 Kan Izaguirre Assessments Encounter Date Diagnosis (ICD Code) Assessment Notes Treatment Notes Treatment Clinical Notes Section Notes 05/25/2024 Vertebrogenic low back pain (ICD-10 - M54.51) Chronic axial lumbosacral spine pain. 12/30/2024 Other chronic pain (ICD-10 - G89.29) Patient reports that taking her pain medication allows her to complete her daily safety lead. Plan to continue oral opioid medication management. 12/30/2024 Vertebrogenic low back pain (ICD-10 - M54.51) Chronic axial lumbosacral spine pain. 11/18/2024 Vertebrogenic low back pain (ICD-10 - M54.51) Chronic axial lumbosacral spine pain. 09/02/2024 Vertebrogenic low back pain (ICD-10 - M54.51) Chronic axial lumbosacral spine pain. 07/22/2024 Other chronic pain (ICD-10 - G89.29) Patient reports that taking her pain medication allows her to ease back into activities following her lumbar spine surgery. Plan to obtain Operative Note from [facility]. Plan to continue oral opioid medication management. 07/22/2024 Vertebrogenic low back pain (ICD-10 - M54.51) Chronic axial lumbosacral spine pain. 07/22/2024 Obstructive sleep apnea (adult) (pediatric) (ICD-10 - G47.33) Patient confirms nightly use of her CPAP device. Plan to continue to restrict opioid use in relation to sleep for safety concerns. 11/18/2024 Other chronic pain (ICD-10 - G89.29) Patient reports that taking her pain medication allows her to complete her safety lead. Plan to continue oral opioid medication management. 09/02/2024 Other chronic pain (ICD-10 - G89.29) Patient reports that taking her pain medication allows her to be more active daily. Plan to continue oral opioid medication management. 12/30/2024 Essential (primary) hypertension (ICD-10 - I10) Education sheet given at today's visit; patient to address with PCP. 05/25/2024 Obstructive sleep apnea (adult) (pediatric) (ICD-10 - G47.33) Patient confirms nightly use of her CPAP device. Plan to continue to restrict opioid use in relation to sleep for safety concerns. 05/25/2024 Other chronic pain (ICD-10 - G89.29) Patient reports that taking her pain medication allows her to do safety lead. Plan to continue oral opioid medication management. 12/30/2024 Obstructive sleep apnea (adult) (pediatric) (ICD-10 - G47.33) Patient confirms nightly use of her CPAP device. Plan to continue to restrict opioid use in relation to sleep for safety concerns. 11/18/2024 Obstructive sleep apnea (adult) (pediatric) (ICD-10 - G47.33) Patient confirms nightly use of her CPAP device. Plan to continue to restrict opioid use in relation to sleep for safety concerns. 09/02/2024 Obstructive sleep apnea (adult) (pediatric) (ICD-10 - G47.33) Patient confirms nightly use of her CPAP device. Plan to continue to restrict opioid use in relation to sleep for safety concerns. 07/22/2024 Other The service was provided by CHRISTOFER [place], as part of the ongoing care plan established by Kan Izaguirre MD, who was present in the office for direct supervision during the encounter. 12/30/2024 Other The service was provided by CHRISTOFER [place], as part of the ongoing care plan established by [place] Izaguirre MD, who was present in the office for direct supervision during the encounter. Patient was provided with a letter at today's visit informing patient that this clinic is closing due to Dr. Izaguirre's residential; see scanned document. Terminal prescriptions were given to the patient along with tapering instructions. 11/18/2024 Other The service was provided by CHRISTOFER Fairbanks, as part of the ongoing care plan established by Kan Izaguirre MD, who was present in the office for direct supervision during the encounter. 09/02/2024 Other The service was provided by CHRISTOFER Fairbanks, as part of the ongoing care plan established by Kan Izaguirre MD, who was present in the office for direct supervision during the encounter. 05/25/2024 Other Patient reports she is scheduled for back surgery with Dr. Allen on 05/28/24. 04/27/2024 RADIOLOGIST'S IMPRESSION OF L-SPINE CT ON 02/03/24: 1. Moderate spondylitic changes. Disc narrowing worse at L3-4. No acute compression fractures. 2. Moderate central canal stenosis L3-4 and severe central canal stenosis L4-5 appears stable compared to previous. 3. Stable mild central canal stenosis L2-3. 4. Bony foraminal narrowing worse at RIGHT L3-4, RIGHT L4-5, 5. Moderate to advanced facet arthropathy L3-L5. 6. Stable LEFT adrenal adenoma. Above findings to be better evaluated with MRI if patient is a candidate RADIOLOGIST'S IMPRESSION OF LEFT HIP X-RAY ON 02/03/24: Severe degenerative osteoarthritis of the left hip. RADIOLOGIST'S IMPRESSION OF LEFT KNEE X-RAY ON 02/03/24: Intact knee replacement Plan Of Treatment No Information Insurance Providers Payer Name Payer Address Payer Phone Subscriber Number Group Number Insured Name Patient Relationship to Insured Coverage Start Date Coverage End Date [employer] [address] [address] [place] [phone] [id number] Aylssa Torre Self - patient is the insured Medical (General) History Medical History History ICD Code Chronic pain Low back pain Lumbar spondylosis and spinal stenosis w ith radiculopathy Sacroiliitis Cervical spondylosis and spondylolisthes is Neck pain Cervical spondylosis and disc disease Myofacial pain syndrome, cervical Osteoarthritis Arthritis of shoulder region, right side , degenerative Bilateral hip bursitis Pain in right shoulder joint on movement Plantar fasciitis Hypertension Bilateral carotid artery stenosis Depression Dyslipidemia Chronic kidney disease Hypertriglyceridemia Coronary artery disease Enlarged thyroid Vitamin D deficiency COPD GERD Diabetes mellitus type II with complicat ion Diabetic peripheral vascular disease and neuropathy Polyneuropathy, peripheral sensorimotor axonal LUE fracture Sleep apnea, CPAP device use Obesity, morbid Surgical History Surgery Date(Month/Year) Cholecystectomy, 1994 Ankle surgery, right, 1998 Hysterectomy, 1998 Hammer toe surgery, bilateral, 1999 Appendectomy, 2004 C5-6 ACDFF, performed at [facility] by Dr. Piña n, 2004 Endarterectomy, left Cervical surgery and bilater al carpal tunnel release, performed at [facility] by Dr. Ray, 02/10/06 Right total knee replacement, 04/2010 Left total knee replacement, 06/2010 PTCA with stent, 01/2013 Placement of stent, performed at [facility] by Dr. Munoz, 12/07/18 Placement of stent, performed at [facility] by Dr. Munoz, 01/12/19 Amputation of right 1st toe, performed a t [facility] by Dr. Hilliard, 02/2021 Angiogram, performed at [facility], 09/12/22 L3-4, L4-5 laminectomy with facetectomy, performed at [facility] by Dr. Allen, 05/28/24 Cataract surgeries, bilateral, performed at [facility] by Dr. Dodd, 07/2024 Hospitalization History Reason Date(Month/Year) Hypertension, 03/2018
--- OUTSIDE RECORDS SUMMARY | 2025-04-22 05:19 | XMS_ITS | Clinical Summary ---
Author Organization [facility] Address [address] [place] [address] Care Team Providers Care Label Machine Operator Name Role Phone MynorBriannaKarla NP Primary Care Provider [phone] Allergies No known active allergies Medications diltiazem SR 24 hour (DILACOR XR) 180 mg Oral CDCR Take 180 mg by mouth 2 times daily. Active fenofibrate nanocrystallized (TRICOR) 145 mg Oral tablet Take 145 mg by mouth daily. Active ranitidine HCl (ZANTAC) 150 mg Oral Cap Take 150 mg by mouth 2 times daily. Active Iron Polysacch Tmodlst-Z19-ZS (NIFEREX-150 FORTE) 150-25-1 mg-mcg-mg Oral Cap Take 1 Cap by mouth daily. 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 Gender Identity Not on file Sexual Orientation Not on file Last Filed Vital Signs Vital Sign Reading Time Taken Comments Blood Pressure 135/71 07/28/2010 6:48 AM CDT Pulse 88 07/28/2010 6:48 AM CDT Temperature 35.2 C (95.3 F) 07/28/2010 6:48 AM CDT Respiratory Rate 16 07/28/2010 6:48 AM CDT Oxygen Saturation 96% 07/28/2010 6:48 AM CDT Inhaled Oxygen Concentration - - Weight 118.1 kg (260 lb 5.8 oz) 07/25/2010 7:52 AM CDT Height 160 cm (5' 3 ) 07/25/2010 7:52 AM CDT Body Mass Index 46.12 07/25/2010 7:52 AM CDT Plan of Treatment Health Maintenance Due Date Last Done Comments DTAP/TDAP/TD VACCINES (1 - Tdap) 1976 PNEUMOCOCCAL VACCINE 50+ YEARS (1 of 2 - PCV) 05/09/19 76 BREAST CANCER SCREENING 1997 COLORECTAL SCREENING 2002 Colorectal Cancer Screening 2002 FIT-DNA Q 3 years 2002 FIT/FOBT Q 1 year 2002 Flex Sig/CT Colonography Q 5 years 2002 ZOSTER VACCINE (1 of 2) 2007 OSTEOPOROSIS SCREENING 2022 INFLUENZA VACCINE (#1) 2025 RSV VACCINE (60+ or ) (1 - 1-dose 75+ series) 2032 Medical Devices Implanted Type Area Supervisor Bottle Machines Device Identifier Shelf Expiration Date Model / Serial / Lot Log 97545 - Cement - 1 - Cement [place] G-Hv 40g [id number] Implanted:Qty: 2 on 04/25/2010 at [facility] Cement Right: Knee [employer] 11/21/2011 [id number] / / [id number] Log 15454 - Cement - 1 - Cement [place] G-Hv 40g [id number] Implanted:Qty: 1 on 07/25/2010 at [facility] Cement Left: Knee [employer] 02/21/2012 [id number] / / [id number] Log 76617 - Cement - 1 - Cement [place] G-Hv 40g [id number] Implanted:Qty: 1 on 07/25/2010 at [facility] Cement Left: Knee [employer] 02/21/2012 [id number] / / [id number] Log 21374 - Biomet Vanguard Complete Knee System - 1 - Button Patella 28x8mm [id number] Implanted:Qty: 1 on 04/25/2010 at [facility] Knee Right: Knee [employer] 01/20/2015 [id number] / / [id number] Log 42366 - Biomet Vanguard Complete Knee System - 1 - Insert I-Beam Cocr 75mm [id number] Implanted:Qty: 1 on 04/25/2010 at [facility] Knee Right: Knee [employer] 03/22/2020 [id number] / / [id number] Log 84775 - Biomet Vanguard Complete Knee System - 1 - Fem Vng Open Box 62.5mm Rt [id number] Implanted:Qty: 1 on 04/25/2010 at [facility] Knee Right: Knee [employer] 02/21/2020 [id number] / / [id number] Log 29261 - Biomet Vanguard Complete Knee System - 1 - Bearing Tib Vng Ps+ 10x71/75mm [id number] Implanted:Qty: 1 on 04/25/2010 at [facility] Knee Right: Knee [employer] 01/20/2015 [id number] / / [id number] Log 80065 - Biomet Vanguard Complete Knee System - 1 - Fem Vng Open Box 62.5mm Lt [id number] Implanted:Qty: 1 on 07/25/2010 at [facility] Knee Left: Knee [employer] 05/23/2020 [id number] / / [id number] Log 73801 - Biomet Vanguard Complete Knee System - 1 - Bearing Tib Vng Ps+ 10x71/75mm [id number] Implanted:Qty: 1 on 07/25/2010 at [facility] Knee Left: Knee [employer] 04/22/2015 [id number] / / [id number] Log 40487 - Biomet Vanguard Complete Knee System - 1 - Button Patella 28x8mm [id number] Implanted:Qty: 1 on 07/25/2010 at [facility] Knee Left: Knee [employer] 04/22/2015 [id number] / / [id number] Log 27614 - Biomet Vanguard Complete Knee System - 1 - Insert I-Beam Cocr 71mm [id number] Implanted:Qty: 1 on 07/25/2010 at [facility] Knee Left: Knee [employer] 05/23/2020 [id number] / / [id number] Insurance [address] [place] [address] LUCILA [place]NEY MEDICARE PART A AND B Advance Directives For more information, please contact: [phone] * Full Code (Latest Code Status on File) Date Activated Date Inactivated Comments 07/25/2010 1:31 PM 07/28/2010 1:58 PM * Full Code Date Activated Date Inactivated Comments 07/25/2010 8:52 AM 07/25/2010 1:31 PM * Full Code Date Activated Date Inactivated Comments 07/25/2010 7:34 AM 07/25/2010 8:52 AM * Full Code Date Activated Date Inactivated Comments 04/25/2010 10:15 AM 04/28/2010 2:44 PM * Full Code Date Activated Date Inactivated Comments 04/25/2010 8:46 AM 04/25/2010 10:15 AM Care Teams Label Machine Operator Relationship Specialty Start Date End Date Brianna Lowe NP [address] [place] [id number] PCP - General Family Practice 05/01/10
== END 2025-04-21 14:21 | disposition home or self-care (01) ==
PROVIDERS: Emergency Provider Family Medicine; PCP Nurse Practitioner
DX: R10.9 Unspecified abdominal pain (principal); Z79.82 Long term (current) use of aspirin; Z87.891 Personal history of nicotine dependence; I25.10 Atherosclerotic heart disease of native coronary artery without angina pectoris; J44.9 Chronic obstructive pulmonary disease, unspecified; E11.9 Type 2 diabetes mellitus without complications; I11.0 Hypertensive heart disease with heart failure; I50.9 Heart failure, unspecified
CPT/HCPCS: 36415; 74176; 80053; 81001; 83690; 85025; 99284

== ENCOUNTER 2025-06-01 08:16 | Emergency (ER) | payer MEDICARE, SELFPAY ==
[2025-06-01 08:25] VITALS: BP 146/83; PULSE 89; RESP 18; TEMP 36.6; O2SAT 97; BMI 43.2
--- NOTE | 2025-06-01 08:32 | ED_ITS ---
HPI - Back Pain/Injury General: Chief Complaint: Back Pain/Injury Stated Complaint: back pain down into legs Time Seen by Provider: 06/01/25 08:18 History of Present Illness: 70-year-old female presents emergency ro om complaining of back pain radiating from mid back down her legs bilaterally. She has not had any numbness in the lower extremities no saddle paresthesias no fecal incontinence or urinary retention no recent trauma or fall this been a chronic problem for she has pre viously had a lumbar laminectomy at the L3 445 levels with partial facetectomies. She had been seeing pain clinic in the past but the physician left and she has not reestablished with another pain clinic as of yet. Associated symptoms: Deny abdominal pain, chills, dysuria, fecal incontinence, fever(s) or urinary urgency Related Data Home Medications ?Medication ?Instructions ?Recorded ?Confirmed ascorbic acid (vitamin C) 500 mg 500 mg PO DAILY 10/0505/03/25 capsule aspirin 81 mg tablet,delayed 81 mg PO DAILY 10/05/19 0 05/03/25 release (Adult Low Dose Aspirin) diphenhydramine 25 1 tab PO QPM PRN pain/sleep 02/10/21 05/03/25 mg-acetaminophen 500 mg tablet (Tylenol PM Extra Strength) multivitamin 1 tab PO DAILY ##0 02/10/21 05/03/25 budesonide 0.5 mg/2 mL suspension 0.5 mg inhalation BI D PRN 04/21/25 05/03/25 for nebulization (Pulmicort) Shortness Of Breath carvedilol 6.25 mg tablet 6.25 mg PO BID 04/21/2504/22 furosemide 40 mg tablet (Lasix) 40 mg PO DAILY PRN silvia ma 04/21/25 05/03/25 hydrocodone 10 mg-acetaminophen 1 - 2 tab PO .Q4-6H ID N Pain 04/21/25 05/03/25 325 mg tablet Held on 05/03/25. Instructions: Out of medication levocetirizine 5 mg tablet 5 mg PO DAILY PRN allergies 04/21/25 05/03/25 vitamin B complex 1 tab PO DAILY 04/21/2504/22 Previous Rx's ?Medication ?Instructions ?Recorded nitroglycerin 0.4 mg sublingual 0.4 mg sublingual Q5M PRN chest 03/26/23 tablet pain #30 tabs albuterol sulfate 2.5 mg/3 mL 2.5 mg (3 mL) inhalation Q6H PRN 01/12/25 (0.083 %) solution for nebulization shortness of breat h or wheezing #75 mL albuterol sulfate 90 mcg/actuation 2 puff inhalation Q 6H PRN 04/11/25 aerosol inhaler Shortness Of Breath #8.5 gra ms allopurinol 300 mg tablet 300 mg PO DAILY #30 tabs atorvastatin 40 mg tablet 40 mg PO BEDTIME@2200 #30 ta bs 04/11/25 budesonide-formoterol HFA 160 2 puff inhalation Q12H # 10.2 grams 04/11/25 mcg-4.5 mcg/actuation aerosol inhaler (Symbicort) cholecalciferol (vitamin D3) 1,250 1,250 mcg PO Q14D # 2 caps 04/11/25 mcg (50,000 unit) capsule docusate sodium 50 mg capsule 50 mg PO BID #60 caps (Colace Clear) duloxetine 60 mg capsule,delayed 60 mg PO BID@0800,220 0 #60 caps 04/11/25 release evolocumab 140 mg/mL subcutaneous 140 mg SUBCUT .every 14 days #2 mL 04/11/25 pen injector (Neptali Chambers) famotidine 20 mg tablet 20 mg PO BID@0800,2200 #60 t abs 04/11/25 fluticasone propionate 50 2 spray intranasal DAILY Sg al 04/11/25 mcg/actuation nasal Congestion #16 grams spray,suspension icosapent ethyl 1 gram capsule 2 g (2 x 1 gram) PO BID #120 caps 04/11/25 (Vascepa) levothyroxine 25 mcg tablet 25 mcg PO DAILY #30 tabs 0 04/11/25 (Synthroid) sacubitril 49 mg-valsartan 51 mg 1 tab PO BID #60 tabs 04/11/25 tablet (Entresto) tirzepatide 7.5 mg/0.5 mL 7.5 mg (0.5 mL) SUBCUT .week ly #2 04/11/25 subcutaneous pen injector mL (Ankit) acetaminophen 300 mg-codeine 30 mg 1 tab PO Q4H PRN pa in 5 days #30 05/03/25 tablet tabs gabapentin 300 mg capsule 300 mg PO TID #90 caps 05/03 trazodone 100 mg tablet See Rx Instructions PO BEDTI ME #90 05/03/25 tabs diclofenac sodium 1 % topical gel 2 g topical .two katia e day PRN pain 05/19/25 #100 grams prednisone 20 mg tablet 20 mg PO TID #15 tabs tizanidine 4 mg tablet 4 mg PO Q6H PRN muscle spast icity 06/01/25 #20 tabs Allergies Allergy/AdvReac Type Severity Reaction Status Date / Time pregabalin (From Lyrica) Allergy Unknown increased Verified 05/06/25 15:36 muscle pain Review of Systems Const: Denies: fever(s) or chills Card: Denies: chest pain Resp: Denies: dyspnea GI: Denies: abdominal pain or fecal incontinence : Denies: dysuria, urinary frequency, urinary urgency, urinary hesitancy or oliguria Musc: Reports: back pain and extremity pain; Denies: neck pain Skin/Breast: Denies: rash PFSH ED PFSH: Medical History Adult onset hypothyroidism Diabetes mellitus with hyperglycemia, without long-term current use of insulin CHF (congestive heart failure) Heart block Carotid artery disease CAD (coronary artery disease) Primary generalized (osteo)arthritis Vitamin D deficiency Lumbar spinal stenosis Chronic polyneuropathy Allergic rhinoconjunctivitis, seasonal and perennial Hypertriglyceridemia Chronic pain History of carotid artery stenosis ASHD (arteriosclerotic heart disease) Essential hypertension COPD (chronic obstructive pulmonary disease) GERD (gastroesophageal reflux disease) HNP (herniated nucleus pulposus), lumbar Polyneuropathy PAD (peripheral artery disease) Osteoarthritis High risk medication use Rheumatoid arthritis with negative rheumatoid factor Generalized osteoarthritis Surgical History History of hysterectomy History of appendectomy History of cholecystectomy History of bilateral cataract extraction [address] Dodd History of laminectomy L3-4 laminectomy with partial facetectomies L4-L5 05/27/[address] Allen History of colonoscopy with polypectomy (04/12/22) H/O esophagogastroduodenoscopy (04/12/22) History of ankle surgery History of bilateral carpal tunnel release S/P carotid endarterectomy Left 2019 S/P knee replacement Bilateral 2006 S/P hysterectomy S/P angioplasty with stent 2019 right leg 2018 heart Family History Other CAD (coronary artery disease) Diabetes Social History Smoking and tobacco/nicotine status: current every day tobacco/nicotine user Second hand smoke exposure: No Alcohol intake: never Substance/Drug Use: never Caregiver/support person: No Lives independently: Yes Household members: spouse Marital status: Number of children: 3 Highest education level completed: 10th Grade service: No Current occupational status: disabled Pets and animals: Yes Do you think of yourself as: Straight/Heterosexual Current gender identity: Female Physical Exam Const: COMMON NORMALS: no acute distress GENERAL APPEARANCE: cooperative and comfortable ORIENTATION/CONSCIOUSNESS: Yes awake, Yes oriented to person, Yes oriented to place and Yes oriented to time HENMT: COMMON NORMALS: normocephalic, atraumatic and hearing grossly normal bilaterally HEAD & SCALP: normocephalic and atraumatic Resp: COMMON NORMALS: normal respiratory effort, No retractions, No use of accessory muscles and clear to auscultation bilaterally AUSCULTATION: clear to auscultation bilaterally Cardio: COMMON NORMALS: regular rate, regular rhythm and No murmurs present (Cardio) RATE: regular rate RHYTHM: regular rhythm GI: COMMON NORMALS: Soft to palpation and No hepatosplenomegaly present AUSCULTATION: Yes normoactive bowel sounds PALPATION: Yes Soft to palpation, No Tenderness to palpation present (GI), No Guarding due to palpation present (GI) and Yes No hepatosplenomegaly present Extremity: COMMON NORMALS: normal to inspection, capillary refill normal, no clubbing, cyanosis or edema, no calf tenderness and no pedal edema Neuro: SENSORIUM/ORIENTATION: Yes oriented to person, Yes oriented to place and Yes oriented to time Skin: COMMON NORMALS: no rashes or lesions noted GENERAL SKIN EXAM: no rashes or lesions noted Course Vital Signs: Vital signs: Vital Signs Temperature 97.9 F 06/01/25 08:25 Pulse Rate 80 06/01/25 09:27 Respiratory Rate 18 06/01/25 08:25 Blood Pressure 141/84 06/01/25 09:27 Pulse Oximetry 94 06/01/25 09:27 Oxygen Delivery Me thod Room Air 06/01/25 08:55 MDM - Back Pain/Injury Medical Decision Making Pain improved with medications given. Patient has chronic back pain with radiculopathy previously had surgery seems to be recurring now. She had previously been seen at the pain clinic when her doctor retired or left the area she had a gap in the for pain management. She did respond well to medications given I will discharge her home with tizanidine and steroid taper continue the pregabalin encouraged her to follow-up with her primary care doctor she has an upcoming appointment with pain management in [place]. No imaging done today as patient does not have any red flag symptoms symptoms and no trauma at the time Medical Records I reviewed the patient's medical records. Labs I reviewed the patient's lab results. No radiology studies performed this visit Discharge Plan Discharge Patient Disposition: Home Clinical Impression: Status post lumbar laminectomy, Lumbar radiculopathy Condition: Stable Prescriptions: New tizanidine 4 mg tablet 4 mg PO Q6H PRN (Reason: muscle spasticity) Qty: 20 0RF Rx Instructions: do not exceed 3 doses per 24 hrs prednisone 20 mg tablet 20 mg PO TID Qty: 15 0RF Rx Instructions: 1 p.o. 3 times daily x3 days, 1 p.o. twice daily x2 days, 1 p.o. daily x2 days No Action aspirin [Adult Low Dose Aspirin] 81 mg tablet,delayed release (DR/EC) 81 mg PO DAILY ascorbic acid (vitamin C) 500 mg capsule 500 mg PO DAILY Entresto 49-51 mg tablet 1 tab PO BID Qty: 60 5RF Mounjaro 7.5 mg/0.5 mL pen injector 7.5 mg SUBCUT .weekly Qty: 2 2RF Rx Instructions: Mondays allopurinol 300 mg tablet 300 mg PO DAILY Qty: 30 5RF albuterol sulfate 90 mcg/actuation HFA aerosol inhaler 2 puff INHALATION Q6H PRN (Reason: Shortness Of Breath) Qty: 8.5 5RF atorvastatin 40 mg tablet 40 mg PO BEDTIME@2200 Qty: 30 5RF budesonide-formoterol [Symbicort] 160-4.5 mcg/actuation HFA aerosol inhaler 2 puff inhalation Q12H Qty: 10.2 2RF cholecalciferol (vitamin D3) 1,250 mcg (50,000 unit) capsule 1,250 mcg PO Q14D Qty: 2 5RF Rx Instructions: 1st and 15th Colace Clear 50 mg capsule 50 mg PO BID Qty: 60 5RF duloxetine 60 mg capsule,delayed release(DR/EC) 60 mg PO BID@0800,2200 Qty: 60 5RF Repatha SureClick 140 mg/mL pen injector 140 mg SUBCUT .every 14 days Qty: 2 2RF Rx Instructions: and famotidine 20 mg tablet 20 mg PO BID@0800,2200 Qty: 60 5RF fluticasone propionate 50 mcg/actuation spray,suspension 2 spray INTRANASAL DAILY Qty: 16 5RF icosapent ethyl [Vascepa] 1 gram capsule 2 g PO BID Qty: 120 5RF levothyroxine [Synthroid] 25 mcg tablet 25 mcg PO DAILY Qty: 30 2RF albuterol sulfate 2.5 mg /3 mL (0.083 %) solution for nebulization 2.5 mg inhalation Q6H PRN (Reason: shortness of breath or wheezing) Qty: 75 2RF nitroglycerin 0.4 mg tablet, sublingual 0.4 mg sublingual Q5M PRN (Reason: chest pain) Qty: 30 3RF Rx Instructions: do not exceed 3 doses per episode gabapentin 300 mg capsule 300 mg PO TID Qty: 90 2RF trazodone 100 mg tablet See Rx Instructions PO BEDTIME Qty: 90 2RF Rx Instructions: 100-300mg orally bedtime; acetaminophen-codeine 300-30 mg tablet 1 tab PO Q4H PRN (Reason: pain) 5 Days Qty: 30 0RF diclofenac sodium 1 % gel 2 g topical .two time day PRN (Reason: pain) Qty: 100 2RF Rx Instructions: apply to joints hands, arms, legs multivitamin Tablet 1 tab PO DAILY Qty: 0 diphenhydramine-acetaminophen [Tylenol PM Extra Strength] 25-500 mg Tablet 1 tab PO QPM PRN (Reason: pain/sleep) hydrocodone-acetaminophen 10-325 mg tablet 1 - 2 tab PO .Q4-6H PRN (Reason: Pain) vitamin B complex Tablet 1 tab PO DAILY furosemide [Lasix] 40 mg tablet 40 mg PO DAILY PRN (Reason: edema) carvedilol 6.25 mg tablet 6.25 mg PO BID Rx Instructions: WITH A MEAL / FOOD budesonide [Pulmicort] 0.5 mg/2 mL suspension for nebulization 0.5 mg inhalation BID PRN (Reason: Shortness Of Breath) levocetirizine 5 mg tablet 5 mg PO DAILY PRN (Reason: allergies) Discharge Orders: Discharge ED (Routine); Ordered 06/01/25 Ordered By: Reginaldo Diehl Referrals: Amy Morris FNP-C [Primary Care Provider, Family Practice] Patient Instructions: Opioid Safety, Pain Management, Patient Portal & Linh Instructions Activity Restrictions/Additional Instructions: [facility]. It is very important that you follow up as instructed or that you return to the Emergency Department should you have concerns or if your condition changes or worsens in any way. Emergency department visits are focused on emergent conditions, in some cases you may require further evaluation on an outpatient basis. You were seen in the emergency room with complaints of back pain. Pain did improve with medications given. Recommend you follow-up with your primary care doctor and/or the referral to pain clinic you had mentioned that you have scheduled. At the time of discharge you were given prednisone taper and muscle relaxer to use as needed. Continue to take the duloxetine and gabapentin. Follow-up with your primary care physician. (Please note that included in your discharge packet is information concerning opioid safety and pain management. This information is given to all patients were discharged from the ER regardless of their discharge diagnosis or the medicines they usually take or are prescribed.) Print Language: Sri Lankan Coding Level of Care Code ED Career Orientation Teacher for Poonam Chance
--- OUTSIDE RECORDS SUMMARY | 2025-06-01 08:35 | XMS_ITS | Clinical Summary ---
Author Organization [facility] Address [address] [place] [address] Care Team Providers Care Logistical Engineer Name Role Phone MynorBriannaKarla NP Primary Care Provider [phone] Allergies No known active allergies Medications diltiazem SR 24 hour (DILACOR XR) 180 mg Oral CDCR Take 180 mg by mouth 2 times daily. Active fenofibrate nanocrystallized (TRICOR) 145 mg Oral tablet Take 145 mg by mouth daily. Active ranitidine HCl (ZANTAC) 150 mg Oral Cap Take 150 mg by mouth 2 times daily. 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 Gender Identity Not on file Sexual Orientation [...] series) 2032 Medical Devices Implanted Type Area Digital Service Engineer Device Identifier Shelf Expiration Date Model / Serial / Lot Log 72600 - Cement - 1 - Cement [place] G-Hv 40g [id number] Implanted:Qty: 2 on 04/25/2010 at [facility] Cement Right: Knee [employer] 11/21/2011 [id number] / / [id number] Log 18210 - Cement - 1 - Cement [place] G-Hv 40g [id number] Implanted:Qty: 1 on 07/25/2010 at [facility] Cement Left: Knee [employer] 02/21/2012 [id number] / / [id number] Log 36574 - Cement - 1 - Cement [place] G-Hv 40g [id number] Implanted:Qty: 1 on 07/25/2010 at [facility] Cement Left: Knee [employer] 02/21/2012 [id number] / / [id number] Log 09906 - Biomet Vanguard Complete Knee System - 1 - Button Patella 28x8mm [id number] Implanted:Qty: 1 on 04/25/2010 at [facility] Knee Right: Knee [employer] 01/20/2015 [id number] / / [id number] Log 27275 - Biomet Vanguard Complete Knee System - 1 - Insert I-Beam Cocr 75mm [id number] Implanted:Qty: 1 on 04/25/2010 at [facility] Knee Right: Knee [employer] 03/22/2020 [id number] / / [id number] Log 26700 - Biomet Vanguard Complete Knee System - 1 - Fem Vng Open Box 62.5mm Rt [id number] Implanted:Qty: 1 on 04/25/2010 at [facility] Knee Right: Knee [employer] 02/21/2020 [id number] / / [id number] Log 98152 - Biomet Vanguard Complete Knee System - 1 - Bearing Tib Vng Ps+ 10x71/75mm [id number] Implanted:Qty: 1 on 04/25/2010 at [facility] Knee Right: Knee [employer] 01/20/2015 [id number] / / [id number] Log 59273 - Biomet Vanguard Complete Knee System - 1 - Fem Vng Open Box 62.5mm Lt [id number] Implanted:Qty: 1 on 07/25/2010 at [facility] Knee Left: Knee [employer] 05/23/2020 [id number] / / [id number] Log 56882 - Biomet Vanguard Complete Knee System - 1 - Bearing Tib Vng Ps+ 10x71/75mm [id number] Implanted:Qty: 1 on 07/25/2010 at [facility] Knee Left: Knee [employer] 04/22/2015 [id number] / / [id number] Log 80737 - Biomet Vanguard Complete Knee System - 1 - Button Patella 28x8mm [id number] Implanted:Qty: 1 on 07/25/2010 at [facility] Knee Left: Knee [employer] 04/22/2015 [id number] / / [id number] Log 75785 - Biomet Vanguard Complete Knee System - 1 - Insert I-Beam Cocr 71mm [id number] Implanted:Qty: 1 on 07/25/2010 at [facility] Knee Left: Knee [employer] 05/23/2020 [id number] / / [id number] Insurance [address] [place] [address] LUCIL[place] [address]NEY MEDICARE PART A AND B Advance Directives For more information, please contact: [phone] * Full Code (Latest Code Status on [...] 8:46 AM 04/25/2010 10:15 AM Care Teams Logistical Engineer Relationship Specialty Start Date End Date Brianna Lowe NP [address] [place] [id number] PCP - General Family Practice 05/01/10
--- OUTSIDE RECORDS SUMMARY | 2025-06-01 08:35 | XMS_ITS | Clinical Summary ---
Author Organization [facility] Address [address] [place]: Epic Prelude ADT [place] [address] Care Team Providers Care Cutlet Maker Pork Name Role Phone Brianna Lowe Sanjuanita CHAVEZ Primary Care Provider [phone] Allergies No known active allergies Medications albuterol [...] 10PM Active fluticasone propionate (FLONASE) 50 mcg/spray [place], Suspension nasal inhaler USE 2 SPRAYS IN [...] Encounters Date Type Department Care Team Description 04/26/2025 External Device Data [facility] ABSTRACTION Provider, Abstract 04/06/2025 External Device Data [facility] ABSTRACTION Provider, Abstract 04/05/2025 External Device Data [facility] ABSTRACTION Provider, Abstract 03/21/2025 Telephone [facility] [address] [place] [address] Darrius Taylor MD 03/28/25 Brandon [...] on file 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 Gender Identity Not on file Sexual Orientation [...] years 1-dose series) 2017 OSTEOPOROSIS SCREENING 2022 INFLUENZA VACCINE (#1) 2025 07/05/2016 COVID-19 Vaccine (2023-2 5 season) 2025 07/12/2024, 06/30/2023, 07/11/2022, Additional history exists Pre-Diabetes and Diabetes Screening 10/04/2027 10/04/2024 Medical Devices Implanted Type Area Textile Worker Device Identifier Shelf Expiration Date Model / Serial / Lot Log 40821 - Cement - 1 - Cement [place] G-Hv 40g [id number] Implanted:Qty: 2 on 04/25/2010 Cement Right: Knee [employer] 11/21/2011 [id number] / / [id number] Log 80050 - Cement - 1 - Cement [place] G-Hv 40g [id number] Implanted:Qty: 1 on 07/25/2010 Cement Left: Knee [employer] 02/21/2012 [id number] / / [id number] Log 44953 - Cement - 1 - Cement [place] G-Hv 40g [id number] Implanted:Qty: 1 on 07/25/2010 Cement Left: Knee [employer] 02/21/2012 [id number] / / [id number] Log 90045 - Biomet Vanguard Complete Knee System - 1 - Bearing Tib Vng Ps+ 10x71/75mm [id number] Implanted:Qty: 1 on 04/25/2010 Knee Right: Knee [employer] 01/20/2015 [id number] / / [id number] Log 23679 - [employer] Vanguard Complete Knee System - 1 - Button Patella 28x8mm [id number] Implanted:Qty: 1 on 04/25/2010 Knee Right: Knee [employer] 01/20/2015 [id number] / / [id number] Log 58205 - [employer] Vanguard Complete Knee System - 1 - Fem Vng Open Box 62.5mm Rt [id number] Implanted:Qty: 1 on 04/25/2010 Knee Right: Knee [employer] 02/21/2020 [id number] / / [id number] Log 93621 - [employer] Vanguard Complete Knee System - 1 - Insert I-Beam Cocr 75mm [id number] Implanted:Qty: 1 on 04/25/2010 Knee Right: Knee [employer] 03/22/2020 [id number] / / [id number] Log 74695 - [employer] Vanguard Complete Knee System - 1 - Bearing Tib Vng Ps+ 10x71/75mm [id number] Implanted:Qty: 1 on 07/25/2010 Knee Left: Knee [employer] 04/22/2015 [id number] / / [id number] Log 27853 - [employer] Vanguard Complete Knee System - 1 - Button Patella 28x8mm [id number] Implanted:Qty: 1 on 07/25/2010 Knee Left: Knee [employer] 04/22/2015 [id number] / / [id number] Log 12199 - [employer] Vanguard Complete Knee System - 1 - Fem Vng Open Box 62.5mm Lt [id number] Implanted:Qty: 1 on 07/25/2010 Knee Left: Knee [employer] 05/23/2020 [id number] / / [id number] Log 47263 - [employer] Vanguard Complete Knee System - 1 - Insert I-Beam Cocr 71mm [id number] Implanted:Qty: 1 on 07/25/2010 Knee Left: Knee [employer] 05/23/2020 [id number] / / [id number] Procedures Procedure Name Priority Date/Time Associated Diagnosis Comments HEMOGLOBIN A1C Routine 10/04/2024 from Last 3 Months or Most Recently Relevant to Health Maintenance Results * HEMOGLOBIN A1C (10/04/2024) ABSTRACTED HGB A1C 5.6 % Blood us Abstract Provider CHEMISTRY ORDERABLES Edited Re sult - Final from Last 3 Months or Most Recently Relevant to Health Maintenance [place] [address] [place] [address] Care Teams Cutlet Maker Pork Relationship Specialty Start Date End Date Brianna Lowe NP [address] [place] [address] PCP - General Family Practice 05/01/10
[2025-06-01] MEDS: methylPREDNISolone sod succ 125 mg/2 mL INJ IVP (08:49)
[2025-06-01] MEDS: orphenadrine 30 mg/mL Inj 2 mL 60 MG IM (08:52)
[2025-06-01] MEDS: morphine 4 mg/mL SDV 1 mL IVP (08:52)
[2025-06-01 08:55] VITALS: BP 131/87; PULSE 90; O2SAT 98
[2025-06-01 09:27] VITALS: BP 141/84; PULSE 80; O2SAT 94
== END 2025-06-01 09:33 | disposition home or self-care (01) ==
PROVIDERS: Emergency Provider Family Medicine; PCP Nurse Practitioner
DX: M54.16 Radiculopathy, lumbar region (principal); Z98.890 Other specified postprocedural states; Z79.82 Long term (current) use of aspirin; Z72.0 Tobacco use; J44.9 Chronic obstructive pulmonary disease, unspecified; I25.10 Atherosclerotic heart disease of native coronary artery without angina pectoris; E11.42 Type 2 diabetes mellitus with diabetic polyneuropathy; I11.0 Hypertensive heart disease with heart failure; I50.9 Heart failure, unspecified
CPT/HCPCS: 96374; 96375; 99284; J1885; J2270; J2360; J2919

== ENCOUNTER → 2025-07-04 08:11 | Outpatient (BNVA) | payer MEDICARE, SELFPAY | PROVIDERS: PCP Nurse Practitioner; Visit Provider Nurse Practitioner | DX: E11.9 Type 2 diabetes mellitus without complications (principal) | CPT/HCPCS: 80053; 80061; 82607; 83036; 85025 ==

== ENCOUNTER → 2025-07-06 08:50 | Outpatient (BNVA) | payer MEDICARE, SELFPAY | PROVIDERS: PCP Nurse Practitioner; Visit Provider Nurse Practitioner | DX: E61.1 Iron deficiency (principal); E03.8 Other specified hypothyroidism | CPT/HCPCS: 83550; 84443 ==

== ENCOUNTER → 2025-08-31 12:00 | Outpatient (BNVA) | payer MEDICARE, SELFPAY | PROVIDERS: PCP Nurse Practitioner; Visit Provider Nurse Practitioner | DX: E11.65 Type 2 diabetes mellitus with hyperglycemia (principal); E03.8 Other specified hypothyroidism; E61.1 Iron deficiency | CPT/HCPCS: 80053; 83036; 84425; 84443; 85025 ==

== ENCOUNTER 2025-09-13 08:04 | Outpatient (CLI) | payer MEDICARE, SELFPAY ==
--- NOTE | 2025-09-13 09:00 | CT_ITS ---
WS: [id number] CT CHEST, ABDOMEN AND PELVIS WITH CONTRAST HISTORY: Pain in RIGHT lower quadrant, hernia. TECHNIQUE: Contiguous 5 mm axial imaging performed through the chest, abdomen and pelvis with IV contrast, oral contrast has been provided. Coronal and sagittal reformats chest. Coronal and sagittal reformats through the abdomen and pelvis. All CT scans at [facility] use at least one of these dose optimization techniques: automated exposure control; mA and/or kV adjustment per patient size (includes targeted exams where dose is matched to clinical indication); or iterative reconstruction. CONTRAST: Omnipaque 350; 100 mL IV. DLP: 1508.89 mGy.cm COMPARISON: 04/21/2025, 06/14/[address]: Lungs are clear and well aerated. No mass or pneumonia. Mild LEFT heart enlargement. Coronary artery calcifications. No pericardial or pleural effusions. No mediastinal or hilar adenopathy. Mild atherosclerosis aorta. Normal size aorta and pulmonary artery. Small hiatal hernia. Abdomen CT: Normal liver and spleen. No intrahepatic duct dilatation. Normal portal vein. Prior cholecystectomy. Normal pancreas. Normal RIGHT adrenal gland. 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 No renal obstruction. No renal mass or calcification. Normal ureters. No GI tract obstruction. No colitis. Moderate diverticulosis in the distal and sigmoid colon. No acute diverticulitis. Prior appendectomy. Small umbilical hernia contains fat only. No free fluid or adenopathy. Moderate atherosclerosis within the aorta. Mild stenosis involving the celiac axis. Moderate stenosis involving the SMA. No ischemic changes in the GI tract. Additional dense calcified plaque at the origin of the renal arteries. Pelvic CT: Prior hysterectomy. Negative urinary bladder. No free fluid or adenopathy. 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 Osteophytic ridging around the femoral heads with narrowing of the joint spaces. Subchondral cyst. No destructive bone lesions. CT/CT chest abdpel w/*[id number] IMPRESSION: 1. No pneumonia or pulmonary mass. 2. No adenopathy in the chest, abdomen or pelvis. 3. Moderate diverticular disease in the sigmoid colon without acute diverticul itis. 4. Prior cholecystectomy and hysterectomy. 5. Small umbilical hernia containing fat only. 6. Moderate atherosclerosis abdominal aorta. Moderate stenosis involving the p roximal SMA.
--- NOTE | 2025-09-13 09:00 | CT_ITS ---
WS: [id number] CT HEAD NONCONTRAST HISTORY: R55 - Syncope and collapse TECHNIQUE: Contiguous axial imaging performed through the brain. Bone and soft tissue windows. Sagittal and coronal reformats reviewed. All CT scans at [facility] use at least one of these dose optimization techniques: automated exposure control; mA and/or kV adjustment per patient size (includes targeted exams where dose is matched to clinical indication); or iterative reconstruction. DLP: 1075.28 mGy.cm COMPARISON: 10/06/2011 No acute intracranial hemorrhage, midline shift or mass effect. No significant atrophy. Prior lacunar infarct LEFT external capsule. Mild small vessel disease. Ventricles: Normal size with no hydrocephalus. No inferior displacement of the cerebellar tonsils. Paranasal sinuses: Minimal mucoperiosteal thickening in the ethmoid air cells. Mastoid air cells: Well pneumatized. Calvarium and scalp: Skull is intact with no soft tissue edema or swelling. Moderate calcified plaque in the distal vertebral and intracranial carotid arteries. CT/CT head wo con* [id number] IMPRESSION: 1. No acute intracranial hemorrhage or edema. 2. Remote lacunar infarct LEFT external capsule. 3. Mild small vessel disease.
[2025-09-13] MEDS: iohexol 350 mg/mL 500 mL Btl (per mL) PO (09:02)
[2025-09-13] MEDS: iohexol 350 mg/mL 500 mL Btl (per mL) IV (09:34)
== END 2025-09-13 08:05 | disposition home or self-care (01) ==
PROVIDERS: PCP Nurse Practitioner; Visit Provider Nurse Practitioner
DX: R55 Syncope and collapse (principal); R51.9 Headache, unspecified; J43.8 Other emphysema; R10.9 Unspecified abdominal pain; I63.81 Other cerebral infarction due to occlusion or stenosis of small artery; Z90.710 Acquired absence of both cervix and uterus; K42.9 Umbilical hernia without obstruction or gangrene; I70.0 Atherosclerosis of aorta; I77.1 Stricture of artery; Z90.49 Acquired absence of other specified parts of digestive tract; K57.30 Diverticulosis of large intestine without perforation or abscess without bleeding
CPT/HCPCS: 70450; 71260; 74177